=== PATIENT | female | born 1940 | race Caucasian/White ===

== ENCOUNTER 2023-12-14 12:22 | Inpatient (IN) | payer MEDICARE, MEDICAID, SELFPAY ==
--- NOTE | ~2023-12-14 | CT_ITS ---
EXAMINATION: CT HEAD WITHOUT CONTRAST CLINICAL INFORMATION: Seizures COMPARISON: None. TECHNIQUE: Contiguous axial imaging was performed from the skull base to vertex without intravenous administration of contrast. Coronal and sagittal reformatted images are performed at the CT scanner. [This CT examination was performed using dose optimization techniques as appropriate, variously including the following: *Automated exposure control *Adjustment of mA and/or kV according to patient size (this includes techniques or standardized protocols for targeted exams where dose is matched to indication/reason for exam; i.e. extremities or head) *Use of iterative reconstruction technique] DLP: 1172 mGy-cm. FINDINGS: There is no evidence of acute intracranial hemorrhage or territorial infarction. No abnormal mass-effect or midline shift is seen. Godfrey to white matter differentiation is well preserved. No extra-axial fluid collections are identified. There is generalized global volume loss. There is moderate prominence of the ventricles and the sulci . There is mild hypodensity of the periventricular white matter due to chronic small vessel ischemic disease. There are vascular calcifications of the internal carotid arteries bilaterally. There is no osseous abnormality. The mastoid air cells and visualized portions of the paranasal sinuses are well-aerated. CT/CT head/brain wo IV con IMPRESSION: No acute intracranial pathology.
[2023-12-14 12:33] VITALS: BP 186/103; PULSE 112; O2SAT 87; BMI 26.2
[2023-12-14 12:41] VITALS: BP 162/80; PULSE 108; RESP 18; TEMP 36.2; O2SAT 93
--- NOTE | 2023-12-14 12:45 | PC.NURSE ---
pt alert and oriented to self only. pt was biba from [facility] d/t a possible 3 min long tonic clonic seizure. witnessed by facility. no headstrike/trauma noted. pt is not on blood thinners. no hx of previous seizure activity. non med compliant x 1 week. pt seemingly confused/disoriented/unable to answer questions appropriately. seizure pads in place for precaution. pt's son is bedside for support. no sob/wob noted. respirations even and unlabored. call barroso placed within reach.
--- NOTE | 2023-12-14 13:09 | ECG_ITS ---
Test Reason : SEIZURES Blood Pressure : / mmHG Vent. Rate : 092 BPM Atrial Rate : 092 BPM P-R Int : 148 ms QRS Dur : 122 ms QT Int : 412 ms P-R-T Axes : 061 -48 117 degrees QTc Int : 509 ms Normal sinus rhythm Possible Left atrial enlargement Left axis deviation Left bundle branch block Abnormal ECG No previous ECGs available Referred By: Lety Gomez Electronically Signed By:KARL VIEYRA MD
--- NOTE | 2023-12-14 13:10 | ED.SEIZURE ---
HPI - Seizure General Chief Complaint: Seizure Stated Complaint: TREV,FROM [place] ON SEC 21 PER EMS Time Seen by Provider: 12/14/23 12:58 Source: family and EMS Mode of arrival: EMS Limitations: other History of Present Illness HPI Narrative: Patient comes to the emergency room via ambulance from [facility]. Patient has at this time decompensated bipolar disorder and is unable to provide any significant history. Patient's son is at bedside. The son explains that earlier today, they were visiting the patient at [facility]. Welt he was feeling of some papers for his mother, a code assist was called in the facility, seems that patient had a tonic-clonic seizure that lasted 3 minutes. Patient's son did not witness it. When they went to see the patient, patient was awake, still confused as she has been for several days. Per staff, they informed EMS that the patient was in bed, she did not fall or hit her head. Patient is not on blood thinners. According to the patient's son, about a week ago before the patient was hospitalized in the psychiatric facility, a thorough medical workup was done at [facility] including head CT and everything was normal. The patient's son states that he has not sure if the patient has history of prior seizures. However, he is aware that the patient has not been taking any of her medications to her current psychiatric condition Related Data Home Medications ?Medication ?Instructions ?Recorded ?Confirmed fluphenazine decanoate 25 mg/mL 25 mg IM QMONTH 12/14/23 12/22/23 injection solution sennosides 8.6 mg tablet (senna) 17.2 mg PO BEDTIME PRN Constipation 12/14/23 12/22/23 vitamin E 268 mg (400 unit) capsule 268 mg PO DAILY 12/14/23 12/22/23 Previous Rx's ?Medication ?Instructions ?Recorded amlodipine 10 mg tablet 10 mg PO DAILY #30 tabs 01/04/24 atorvastatin 20 mg tablet 20 mg PO BEDTIME #30 tabs 01/04/24 diphenhydramine-zinc acetate 1 1 appl topical BID PRN itching 01/04/24 %-0.1 % topical cream #28.3 grams divalproex 250 mg tablet,delayed 750 mg (3 x 250 mg) PO BID #180 01/04/24 release tabs duloxetine 60 mg capsule,delayed 60 mg PO DAILY #30 caps 01/04/24 release metoprolol tartrate 50 mg tablet 50 mg PO BID #60 tabs 01/04/24 multivitamin (Daily-Chuckie tablet) 1 tab PO DAILY #30 tabs 01/04/24 trazodone 50 mg tablet 50 mg PO BEDTIME PRN Insomnia #30 01/04/24 tabs Allergies Allergy/AdvReac Type Severity Reaction Status Date / Time No Known Allergies Allergy Verified 12/14/23 12:31 Review of Systems Review of Systems: Yes Unobtainable due to mental condition [facility] Past Medical History Medical History HLD (hyperlipidemia) H/O: HTN (hypertension) Bipolar disorder Social History Social History Household Members: Spouse Housing: House Housing Other:: [facility] Do you presently have visiting nurse or other home services: No Unable to assess alcohol history related to: Unknown Comment: 1:1 Patient Tobacco Use Status: Never used Tobacco service: No Sexual orientation: Straight/Heterosexual Physical Exam Vital Signs: Vital Signs: Last Vital Signs Temp 97.2 F 12/22/23 08:00 Pulse 66 12/22/23 08:00 Resp 16 12/22/23 08:00 BP 149/66 H 12/22/23 08:00 Pulse Ox 95 12/22/23 08:00 O2 Del Method Room Air 12/22/23 08:00 O2 Flow Rate 9 12/14/23 20:50 BMI result Body Mass Index 26.3 Const: Other: Appearance: Alert. no acute distress. Eyes: Pupils equal, round and reactive to light. ENT: Pharynx normal. Dried oral mucosa Neck: Normal inspection. Neck supple. No lymph nodes noted. No crepitus CVS: Normal heart rate and rhythm. Pulses normal. Normal S1 and S2 Respiratory: No respiratory distress. Breath sounds normal. No Wheezing. No rales Abdomen: Soft and nontender. No rigidity. No distention. Skin: Skin warm and dry. Normal skin color. Normal skin turgor. Extremities: No lower extremity edema. No Lacerations. No Rash Neuro: No motor deficit. No sensory deficit. Moving all extremities. No slurred speech. CN 2 through 12 grossly intact Psych: calm, cooperative, mumbling, not making sense, per patient this has been going on for about a week Course Course Course Narrative: -patient has no history of seizures. Seems that after the seizure episode, patient was not postictal, was at her bipolar decompensated baseline -unclear if patient has history of seizures. -all of patient's labs pending Medications Administered Discontinued Medications Generic Name Dose Route Start Last Admin Trade Name Freq PRN Reason Stop Dose Admin Amlodipine Besylate 5 mg 12/15/23 09:00 12/16/23 10:34 Amlodipine Besylate 5 Mg Tablet PO Not Given DAILY WILDER Protocol Amlodipine Besylate 10 mg 12/17/23 09:00 12/22/23 09:39 Amlodipine Besylate 10 Mg Tablet PO 10 mg DAILY WILDER Administration Protocol Aripiprazole 5 mg 12/15/23 09:00 12/22/23 09:39 Aripiprazole 5 Mg Tablet PO 5 mg DAILY WILDER Administration Atorvastatin Calcium 20 mg 12/14/23 21:00 12/21/23 20:02 Atorvastatin Calcium 20 Mg Tablet PO 20 mg BEDTIME WILDER Administration Benztropine Mesylate 0.5 mg 12/15/23 09:00 12/22/23 09:39 Benztropine Mesylate 0.5 Mg Tablet PO 0.5 mg DAILY WILDER Administration Carbamazepine 200 mg 12/14/23 21:00 12/18/23 09:44 Carbamazepine 100 Mg Tab.Chew PO 200 mg BID WILDER Administration Dextrose 25 gm 12/15/23 01:49 12/18/23 03:07 Dextrose 50 % 25 Gm/50 Ml Syringe IVPUSH 25 gm Q15M PRN Administration per Hypoglycemia Standing Ord. Protocol Diazepam 5 mg 12/15/23 15:14 12/15/23 15:23 Diazepam 10 Mg/2 Ml Cartridge IM 12/15/23 15:15 5 mg STAT STA Administration Diazepam 5 mg 12/16/23 00:37 12/16/23 00:48 Diazepam 10 Mg/2 Ml Cartridge IM 12/16/23 00:38 5 mg STAT STA Administration Diazepam 2.5 mg 12/16/23 18:01 12/17/23 05:21 Diazepam 10 Mg/2 Ml Cartridge IVPUSH 2.5 mg Q12H PRN Administration anxiety/restlessness Duloxetine HCl 30 mg 12/15/23 09:00 12/18/23 09:44 Duloxetine Hcl 30 Mg Capsule.Dr PO 30 mg DAILY WILDER Administration Duloxetine HCl 60 mg 12/15/23 09:00 12/22/23 09:39 Duloxetine Hcl 60 Mg Capsule.Dr PO 60 mg DAILY WILDER Administration Enoxaparin Sodium 40 mg 12/14/23 21:00 12/21/23 22:47 Enoxaparin Sodium 40 Mg/0.4 Ml Syringe SUBCUT Not Given Q24H WILDER Fluphenazine Decanoate 25 mg 12/21/23 08:00 12/21/23 14:26 Fluphenazine Decanoate 25 Mg/Ml 5 Ml Vial IM 25 mg Q28D WILDER Administration Hydralazine HCl 10 mg 12/15/23 01:52 12/15/23 02:11 Hydralazine Hcl 20 Mg/Ml Vial IVPUSH 12/15/23 01:53 10 mg ONCE ONE Administration Protocol Hydralazine HCl 5 mg 12/16/23 17:51 12/17/23 05:20 Hydralazine Hcl 20 Mg/Ml Vial IVPUSH 5 mg Q6H PRN Administration for SBP > 180 Protocol Levetiracetam 1,500 mg in 100 mls @ 400 mls/hr 12/14/23 19:25 12/14/23 20:11 Keppra IV 12/14/23 19:39 Infused ONCE ONE Infusion Sodium Chloride 1,000 mls @ 999 mls/hr 12/14/23 19:25 12/14/23 22:42 Ns IVCONT 12/14/23 20:25 Infused .Q1H1M ONE Infusion Sodium Chloride 1,000 mls @ 100 mls/hr 12/14/23 20:45 12/15/23 10:15 Ns IVCONT Infused .Q10H WILDER Infusion Levetiracetam 500 mg in 100 mls @ 400 mls/hr 12/15/23 08:00 12/16/23 07:46 Keppra IV Infused Q12H WILDER Infusion Dextrose/Sodium Chloride 1,000 mls @ 100 mls/hr 12/15/23 09:00 12/17/23 15:23 D51/2ns IVCONT Infused .Q10H WILDER Infusion Valproic Acid 500 mg/ Dextrose 55 mls @ 55 mls/hr 12/16/23 16:00 12/22/23 04:51 IV Infused Q12H WILDER Infusion Insulin Human Lispro 0 unit 12/15/23 02:00 12/15/23 14:04 Insulin Lispro 100 Unit/Ml 3 Ml Vial SUBCUT Not Given Q6H [facility] Protocol Metoprolol Tartrate 50 mg 12/14/23 21:00 12/22/23 09:39 Metoprolol Tartrate 50 Mg Tablet PO 50 mg BID WILDER Administration Protocol Midazolam HCl 2 mg 12/14/23 19:25 12/14/23 19:32 Midazolam Hcl/Pf 2 Mg/2 Ml Vial IM 12/14/23 19:26 2 mg ONCE ONE Administration Multivitamins/Vitamin C 1 tab 12/15/23 09:00 12/22/23 09:39 Multivitamin Tablet PO 1 tab DAILY WILDER Administration Sodium Chloride 3 ml 12/15/23 00:00 12/22/23 09:39 0.9 % Sodium Chloride Flush 3 Ml Syringe IVFLUSH 3 ml QSHIFT WILDER Administration Vitamin E 180 mg 12/15/23 09:00 12/22/23 09:39 Vitamin E (Dl,Tocopheryl Acet) 180 Mg (400 Unit) Capsule PO 180 mg DAILY WILDER Administration Medical Decision Making Medical Decision Making [facility] Narrative: My interpretation of labs, hematology within normal limits, troponin slightly elevated, patient does not seem to have any chest pain. Troponin will be repeated 17:00 -18:00, I was informed that the patient's nurse that the patient is very combative, tries to hit them, they will try to have the patient calm down with redirection and then attempt drawing blood again. Patient has a difficult stick -at 19:25, I was informed by the patient's took that the patient was having a seizure. As they walked into a room, patient did seem that she was having a focal seizure, consisting of rapid blinking, eye deviation towards the left. Lasted for approximately 20 seconds. Patient was given 2 mg IM Versed. Vitals stable. Patient did seem postictal and a talking after this event. -IV Keppra foods have been ordered. Discussed with the patient's son the patient will be admitted. -I discussed the patient with our hospitalist Dr. Love, patient being admitted Differential Diagnosis Differential Diagnoses: The differential diagnosis associated with the presentation includes (Seizure, pseudo-seizure) Admission/Observation Consideration of admission/observation: Escalation of care including admission/observation considered Consult Healthcare Provider Management of the patient was discussed with: Hospitalist (Discussed the patient with Dr. Love) Lab Data MDM Lab Attestation statement: I reviewed the patient's lab results. 12/19/23 08:11 12/19/23 08:11 Labs: Lab Results 12/14/23 12/14/23 12/14/23 Range/Units 13:59 17:37 19:53 WBC 9.5 (4.8-10.8) X10*3/uL RBC 3.99 L (4.20-5.50) X10*6/uL Hgb 11.4 L (12.0-16.0) g/dl Hct 35.5 L (37.0-47.0) % MCV 89.0 (80.0-98.0) fL MCH 28.6 (27.0-33.0) pg MCHC 32.1 (31.0-35.0) g/dl RDW 13.3 (11.0-16.0) % Plt Count 331 (160-400) X10*3/uL MPV 9.9 (9.4-12.3) fL Immature Gran % (Auto) 0.3 (0.0-0.4) % Neut % (Auto) 79.6 H (45-73) % Lymph % (Auto) 7.8 L (20-40) % [place] % (Auto) 10.2 (2-11) % Eos % (Auto) 1.6 (0-4) % Baso % (Auto) 0.5 (0-2) % Lymph # (Auto) 0.7 L (1.2-4.9) X10*3/uL [place] # (Auto) 1.0 (0.1-1.2) X10*3/uL Eos # (Auto) 0.2 (0.0-0.4) X10*3/uL Baso # (Auto) 0.1 (0.0-0.2) X10*3/uL Abs Immat Gran (auto) 0.03 (0.00-0.03) X10*3/uL Absolute Neuts (auto) 7.6 (2.0-8.3) x10*3/uL Absolute Nucleated RBC 0.000 (0.0-0.012) X10*3/uL Nucleated RBC % (auto) 0.0 (0.0-0.2) /100WBC PT 12.9 (11.1-13.3) SEC INR 1.1 (0.9-1.1) Sodium 145 (135-145) mmol/L Potassium 4.3 (3.3-5.1) mmol/L Chloride 111 H (96-108) mmol/L Carbon Dioxide 21 L (22-29) mmol/L Anion Gap 17 (12-20) BUN 25 H (9-16) mg/dL Creatinine 0.87 (0.5-1.4) mg/dL Estim Creat Clear Calc 41.3 Estimated GFR > 60 POC Glucose (60-115) mg/dL Random Glucose 88 (60-115) mg/dL Estimat Average Glucose mg/dL Hemoglobin A1c % (<6.0) % Lactic Acid 1.4 (0.5-2.0) mmol/L Calcium 9.5 (8.4-10.2) mg/dL Magnesium 2.3 (1.6-2.6) mg/dL Total Bilirubin 0.3 (0.0-1.0) mg/dL Direct Bilirubin 0.2 (0.0-0.5) mg/dL AST 31 (5-31) U/L ALT 20 (0-31) U/L Alkaline Phosphatase 65 (39-117) U/L Troponin I High Sens 28.9 H 32.3 H (<3.5-17.0) ng/L Total Protein 7.4 (6.5-8.0) g/dL Albumin 3.9 (3.5-5.0) g/dL Urine Color Yellow Urine Appearance Clear Urine pH 6.0 (5.0-9.0) Ur Specific [place] 1.025 (1.005-1.025) Urine Protein Trace (Neg-Trace) mg/dL Urine Glucose (UA) Negative (Negative) mg/dL Urine Ketones 15 (Negative) mg/dL Urine Blood Negative (Negative) Urine Nitrite Negative (Negative) Ur Leukocyte Esterase Negative (Negative) 12/15/23 12/15/23 12/15/23 Range/Units 01:43 02:57 05:42 WBC 7.8 (4.8-10.8) X10*3/uL RBC 3.51 L (4.20-5.50) X10*6/uL Hgb 10.0 L (12.0-16.0) g/dl Hct 31.5 L (37.0-47.0) % MCV 89.7 (80.0-98.0) fL MCH 28.5 (27.0-33.0) pg MCHC 31.7 (31.0-35.0) g/dl RDW 13.6 (11.0-16.0) % Plt Count 304 (160-400) X10*3/uL MPV 10.5 (9.4-12.3) fL Immature Gran % (Auto) 0.4 (0.0-0.4) % Neut % (Auto) 64.9 (45-73) % Lymph % (Auto) 18.3 L (20-40) % [place] % (Auto) 13.8 H (2-11) % Eos % (Auto) 2.1 (0-4) % Baso % (Auto) 0.5 (0-2) % Lymph # (Auto) 1.4 (1.2-4.9) X10*3/uL [place] # (Auto) 1.1 (0.1-1.2) X10*3/uL Eos # (Auto) 0.2 (0.0-0.4) X10*3/uL Baso # (Auto) 0.0 (0.0-0.2) X10*3/uL Abs Immat Gran (auto) 0.03 (0.00-0.03) X10*3/uL Absolute Neuts (auto) 5.1 (2.0-8.3) x10*3/uL Absolute Nucleated RBC 0.000 (0.0-0.012) X10*3/uL Nucleated RBC % (auto) 0.0 (0.0-0.2) /100WBC PT (11.1-13.3) SEC INR (0.9-1.1) Sodium 145 (135-145) mmol/L Potassium 3.4 D (3.3-5.1) mmol/L Chloride 116 H (96-108) mmol/L Carbon Dioxide 20 L (22-29) mmol/L Anion Gap 12 (12-20) BUN 20 H (9-16) mg/dL Creatinine 0.82 (0.5-1.4) mg/dL Estim Creat Clear Calc 43.9 Estimated GFR > 60 POC Glucose 64 164 H (60-115) mg/dL Random Glucose 62 (60-115) mg/dL Estimat Average Glucose 103 mg/dL Hemoglobin A1c % 5.2 (<6.0) % Lactic Acid (0.5-2.0) mmol/L Calcium 8.3 L D (8.4-10.2) mg/dL Magnesium 2.0 (1.6-2.6) mg/dL Total Bilirubin (0.0-1.0) mg/dL Direct Bilirubin (0.0-0.5) mg/dL AST (5-31) U/L ALT (0-31) U/L Alkaline Phosphatase (39-117) U/L Troponin I High Sens (<3.5-17.0) ng/L Total Protein (6.5-8.0) g/dL Albumin (3.5-5.0) g/dL Urine Color Urine Appearance Urine pH (5.0-9.0) Ur Specific [place] (1.005-1.025) Urine Protein (Neg-Trace) mg/dL Urine Glucose (UA) (Negative) mg/dL Urine Ketones (Negative) mg/dL Urine Blood (Negative) Urine Nitrite (Negative) Ur Leukocyte Esterase (Negative) 12/15/23 12/15/23 Range/Units 07:54 08:23 WBC (4.8-10.8) X10*3/uL RBC (4.20-5.50) X10*6/uL Hgb (12.0-16.0) g/dl Hct (37.0-47.0) % MCV (80.0-98.0) fL MCH (27.0-33.0) pg MCHC (31.0-35.0) g/dl RDW (11.0-16.0) % Plt Count (160-400) X10*3/uL MPV (9.4-12.3) fL Immature Gran % (Auto) (0.0-0.4) % Neut % (Auto) (45-73) % Lymph % (Auto) (20-40) % [place] % (Auto) (2-11) % Eos % (Auto) (0-4) % Baso % (Auto) (0-2) % Lymph # (Auto) (1.2-4.9) X10*3/uL [place] # (Auto) (0.1-1.2) X10*3/uL Eos # (Auto) (0.0-0.4) X10*3/uL Baso # (Auto) (0.0-0.2) X10*3/uL Abs Immat Gran (auto) (0.00-0.03) X10*3/uL Absolute Neuts (auto) (2.0-8.3) x10*3/uL Absolute Nucleated RBC (0.0-0.012) X10*3/uL Nucleated RBC % (auto) (0.0-0.2) /100WBC PT (11.1-13.3) SEC INR (0.9-1.1) Sodium (135-145) mmol/L Potassium (3.3-5.1) mmol/L Chloride (96-108) mmol/L Carbon Dioxide (22-29) mmol/L Anion Gap (12-20) BUN (9-16) mg/dL Creatinine (0.5-1.4) mg/dL Estim Creat Clear Calc Estimated GFR POC Glucose 57 L* 157 H (60-115) mg/dL Random Glucose (60-115) mg/dL Estimat Average Glucose mg/dL Hemoglobin A1c % (<6.0) % Lactic Acid (0.5-2.0) mmol/L Calcium (8.4-10.2) mg/dL Magnesium (1.6-2.6) mg/dL Total Bilirubin (0.0-1.0) mg/dL Direct Bilirubin (0.0-0.5) mg/dL AST (5-31) U/L ALT (0-31) U/L Alkaline Phosphatase (39-117) U/L Troponin I High Sens (<3.5-17.0) ng/L Total Protein (6.5-8.0) g/dL Albumin (3.5-5.0) g/dL Urine Color Urine Appearance Urine pH (5.0-9.0) Ur Specific [place] (1.005-1.025) Urine Protein (Neg-Trace) mg/dL Urine Glucose (UA) (Negative) mg/dL Urine Ketones (Negative) mg/dL Urine Blood (Negative) Urine Nitrite (Negative) Ur Leukocyte Esterase (Negative) Independent Interpretation I performed an independent interpretation of an: CT Scan (My interpretation of head CT: No intracranial bleed) Radiology Impression Discussion of test interpretation with radiology: I have reviewed the radiologist's reading. Radiologist Impression: FINDINGS: There is no evidence of acute intracranial hemorrhage or territorial infarction. No abnormal mass-effect or midline shift is seen. Godfrey to white matter differentiation is well preserved. No extra-axial fluid collections are identified. There is generalized global volume loss. There is moderate prominence of the ventricles and the sulci . There is mild hypodensity of the periventricular white matter due to chronic small vessel ischemic disease. There are vascular calcifications of the internal carotid arteries bilaterally. There is no osseous abnormality. The mastoid air cells and visualized portions of the paranasal sinuses are well-aerated. CT/CT head/brain wo IV con IMPRESSION: No acute intracranial pathology. Independent Historian Clinical information obtained from an independent historian. History obtained from or confirmed by: Other (Son) Critical Care Time Critical Care Time Critical Care Time: Yes Total Critical Care Time: 75 Attestation: I have personally provided critical care time. Time includes review of lab data, radiology results, discussion with consultants, and monitoring for potential decompensation. Intervention performed as documented. Discharge Plan Discharge Clinical Impression: Generalized tonic-clonic seizure Patient Disposition: Admitted As Inpatient Interventions: Admission Worksheet (ED) Last Done: 12/15/23 00:19 Discharge Date/Time: 12/15/23 01:42
--- NOTE | 2023-12-14 14:05 | PC.NURSE ---
labs obtained/sent to lab.
[2023-12-14 14:06] LABS: MANUAL DIFF FLAG NO
[2023-12-14 14:08] LABS: Basophils Absolute Auto 0.1 X10*3/uL (0.0-0.2); Basophils Percent Auto 0.5 % (0-2); Eosinophils Absolute Auto 0.2 X10*3/uL (0.0-0.4); Eosinophils Percent Auto 1.6 % (0-4); Hematocrit 35.5 % (37.0-47.0); Hemoglobin 11.4 g/dl (12.0-16.0); Imm Gran Abs Auto 0.03 X10*3/uL (0.00-0.03); Imm Gran Pct Auto 0.3 % (0.0-0.4); Lymphocytes Absolute Auto 0.7 X10*3/uL (1.2-4.9); Lymphocytes Percent Auto 7.8 % (20-40); Mean Corpuscular HGB Conc 32.1 g/dl (31.0-35.0); Mean Corpuscular Hemoglobin 28.6 pg (27.0-33.0); Mean Platelet Volume 9.9 fL (9.4-12.3); Monocytes Percent Auto 10.2 % (2-11); Neutrophils Absolute Auto 7.6 x10*3/uL (2.0-8.3); Neutrophils Percent Auto 79.6 % (45-73); Platelet Count 331 X10*3/uL (160-400); Red Blood Count 3.99 X10*6/uL (4.20-5.50); Red Cell Distribution Width 13.3 % (11.0-16.0); White Blood Count 9.5 X10*3/uL (4.8-10.8)
[2023-12-14 14:12] LABS: INTERNATIONAL NORM RATIO 1.1 (0.9-1.1); Prothrombin Time 12.9 SEC (11.1-13.3)
[2023-12-14 14:17] LABS: Lactic Acid 1.4 mmol/L (0.5-2.0)
[2023-12-14 14:22] LABS: Alanine Aminotransferase 20 U/L (0-31); Albumin Level 3.9 g/dL (3.5-5.0); Alkaline Phosphatase 65 U/L (39-117); Anion Gap 17 (12-20); Aspartate Amino Transferase 31 U/L (5-31); Bilirubin Direct 0.2 mg/dL (0.0-0.5); Bilirubin Total 0.3 mg/dL (0.0-1.0); Blood Urea Nitrogen 25 mg/dL (9-16); Calcium 9.5 mg/dL (8.4-10.2); Carbon Dioxide 21 mmol/L (22-29); Chloride 111 mmol/L (96-108); Creatinine Clr Calc Pharmacy 41.3; Estimated Glomerular Filt Rate > 60; Glucose Random 88 mg/dL (60-115); Potassium 4.3 mmol/L (3.3-5.1); Sodium 145 mmol/L (135-145); Total Protein 7.4 g/dL (6.5-8.0)
[2023-12-14 14:29] LABS: Troponin-I High Sensitivity 28.9 ng/L (<3.5-17.0)
--- NOTE | 2023-12-14 15:10 | PC.NURSE ---
pt to CT at this time.
--- NOTE | 2023-12-14 16:29 | PHA.MEDREC ---
Pharmacy Consult ? Medication Reconciliation Pharmacy has completed the medication reconciliation. Patient came from [facility] with med list. Chika Lima, SusanaD
[2023-12-14 17:07] VITALS: BP 158/72; PULSE 95; RESP 16; TEMP 37.2; O2SAT 99
[2023-12-14 17:09] VITALS: O2SAT 66
--- NOTE | 2023-12-14 17:09 | PC.NURSE ---
pt was resting comfortably asleep in no apparent distress. pt desatted to 66% on RA w/ accurate pleth. lithopone charger's bedside to assess. pt woke up and O2 increased to 99% on RA. no sob/wob noted. respirations even and unlabored. documented in vitals section.
--- NOTE | 2023-12-14 17:41 | PC.NURSE ---
straight catheterization performed. 3:1 assist needed to complete task d/t pt being combative. urine obtained/sent to lab.
[2023-12-14 17:49] LABS: Appearance Urine Clear; Color Urine Yellow; Glucose Urine UA Negative (Negative); Leukocyte Esterase Urine Negative (Negative); Nitrite Urine Negative (Negative); Specific Gravity - Urine 1.025 (1.005-1.025); Urine Blood Negative (Negative); Urine Ketones 15 mg/dL (Negative); Urine Protein Trace mg/dL (Neg-Trace)
--- NOTE | 2023-12-14 19:25 | PC.NURSE ---
Pt noted to have a seizure. MD and pts son at bedside. Verbal ordered for 2mg of Versed given to pt IM. Pt placed on 15L via NR for O2 support. Sat @ 99%. Sinus tach on monitor. 20G IV line established on R hand. Pt tolerated well. NS and Keppra administered as ordered. Pt currently sleeping at the bedside. No apparent distress noted. O2 sat 100% on 8L via NR. Breaths are even regular and unlabored.
[2023-12-14 19:26] VITALS: BP 192/64; PULSE 100; RESP 22; O2SAT 99
[2023-12-14] MEDS: Midazolam HCl/PF 2 MG/2 ML VIAL IM (19:32)
[2023-12-14] MEDS: 0.9 % Sodium Chloride 1,000 ML 999 ML IVCONT (19:45)
[2023-12-14] MEDS: levETIRAcetam in NaCl (iso-os) 1,500 MG/100 ML PIGGYBACK 400 MG IV (19:56)
[2023-12-14 20:18] LABS: Troponin-I High Sensitivity 32.3 ng/L (<3.5-17.0)
[2023-12-14 20:50] VITALS: BP 165/73; PULSE 90; RESP 20; O2SAT 100
--- NOTE | 2023-12-14 20:53 | PM.IMHP ---
History of Present Illness Date of Service: 12/14/23 Attending physician on admission: Destiney Love Chief Complaint: ams, seizure 83-year-old female with history of bipolar disorder, hypertension, hyperlipidemia presented to the ED from [facility] following a witnessed ?tonic-clonic seizure? lasting about 3 minutes. Patient is unable to provide history secondary to decompensated bipolar disorder as well as postictal state as she did have a 2nd witnessed focal seizure while in the ED with left eye gaze deviation, rapid blinking, and stiff legs bilaterally. Discussed with patient's son who denies any history of seizure activity. He tells me that the patient has been noncompliant with her psychiatric medications for an unspecified period of time with subsequent decompensation of her bipolar disorder which has happened in the past. She was recently hospitalized at [facility] with discharge to [facility] for further management. He states that historically she will stop taking her medications thinking that her condition has improved and will subsequently decompensate. She has followed at the [facility] outpt for 20+ years. On arrival, pt tachycardic to 108, vitals otherwise stable. During witnessed focal seizure, patient desaturated to 66% on room air and was placed on non-rebreather now maintaining oximetry 100%. She was hypertensive to 165/73 on admission. No leukocytosis. There is a mild normocytic anemia with H/H 11.4/35.5%. Renal function consistent with baseline, electrolyte levels normal. Lactic acid 1.4. Glucose within normal limits. EKG shows NSR, rate 92 with (known) LBBB, QTc 509. Head CT negative for any acute intracranial abnormality. In the ED, given 2 mg IV Versed during witnessed focal seizure as above and loaded with 1500 mg IV Keppra. Review of Systems Review of Systems: Yes Unobtainable due to mental status [facility] Medical History (Updated 12/14/23 @ 21:07 by CARMELINA Davis) HLD (hyperlipidemia) H/O: HTN (hypertension) Bipolar disorder Social History Patient Tobacco Use Status: Never used Tobacco Smoked in Last 30 Days: No Use of substances other than those prescribed or required for medical reasons: No Advance Directives: Yes Advance Directives Information Provided: No Advance Directives on File: No Nutrition Risks: No Nutritional Risk Meds Allergies Allergy/AdvReac Type Severity Reaction Status Date / Time No Known Allergies Allergy Verified 12/14/23 12:31 Active Medications: Current Medications Acetaminophen (Acetaminophen 325 Mg Tablet) 650 mg PO Q6H PRN PRN Reason: Pain, Mild (Pain Scale 1-3) Amlodipine Besylate (Amlodipine Besylate 5 Mg Tablet) 5 mg PO DAILY [facility]; Protocol Aripiprazole (Aripiprazole 5 Mg Tablet) 5 mg PO DAILY [facility] Atorvastatin Calcium (Atorvastatin Calcium 20 Mg Tablet) 20 mg PO BEDTIME [facility] Benztropine Mesylate (Benztropine Mesylate 0.5 Mg Tablet) 0.5 mg PO DAILY [facility] Carbamazepine (Carbamazepine 100 Mg Tab.Chew) 200 mg PO BID [facility] Duloxetine HCl (Duloxetine Hcl 30 Mg Capsule.Dr) 30 mg PO DAILY [facility] Duloxetine HCl (Duloxetine Hcl 60 Mg Capsule.Dr) 60 mg PO DAILY [facility] Enoxaparin Sodium (Enoxaparin Sodium 40 Mg/0.4 Ml Syringe) 40 mg SUBCUT Q24H [facility] Sodium Chloride (Ns) 1,000 mls @ 100 mls/hr IVCONT .Q10H [facility] Levetiracetam (Keppra) 500 mg in 100 mls @ 400 mls/hr IV Q12H [facility] Metoprolol Tartrate (Metoprolol Tartrate 50 Mg Tablet) 50 mg PO BID [facility]; Protocol Multivitamins/Vitamin C (Multivitamin Tablet) 1 tab PO DAILY [facility] Non-Formulary Medication (Vitamin E) 268 mg PO DAILY [facility] Ondansetron HCl (Ondansetron Hcl 4 Mg/2 Ml Vial) 4 mg IVPUSH Q8H PRN PRN Reason: Nausea and Vomiting Senna (Sennosides 8.6 Mg Tablet) 17.2 mg PO BEDTIME PRN PRN Reason: Constipation Sodium Chloride (0.9 % Sodium Chloride Flush 3 Ml Syringe) 3 ml IVFLUSH QSHIFT [facility] Trazodone HCl (Trazodone Hcl 50 Mg Tablet) 50 mg PO BEDTIME PRN PRN Reason: Insomnia Home Medications Medication Instructions Recorded Confirmed Last Taken Type amlodipine 5 mg tablet 5 mg PO DAILY 12/14/23 12/14/23 Unknown History aripiprazole 5 mg tablet 5 mg PO DAILY 12/14/23 12/14/23 Unknown History atorvastatin 20 mg tablet 20 mg PO BEDTIME 12/14/23 12/14/23 Unknown History benztropine 0.5 mg tablet 0.5 mg PO DAILY 12/14/23 12/14/23 Unknown History carbamazepine 100 mg chewable 200 mg PO BID 12/14/23 12/14/23 Unknown History tablet clindamycin HCl 150 mg capsule 300 mg PO QID 12/14/23 12/14/23 Unknown History duloxetine 30 mg capsule,delayed 30 mg PO DAILY 12/14/23 12/14/23 Unknown History release duloxetine 60 mg capsule,delayed 60 mg PO DAILY 12/14/23 12/14/23 Unknown History release fluphenazine decanoate 25 mg/mL 25 mg IM QMONTH 12/14/23 12/14/23 Unknown History injection solution metoprolol tartrate 25 mg tablet 50 mg PO BID 12/14/23 12/14/23 Unknown History multivitamin 1 tab PO DAILY 12/14/23 12/14/23 Unknown History sennosides 8.6 mg tablet (senna) 8.6 mg PO BEDTIME PRN Constipation 12/14/23 12/14/23 Unknown History trazodone 50 mg tablet 50 mg PO BEDTIME PRN Insomnia 12/14/23 12/14/23 Unknown History vitamin E 268 mg (400 unit) capsule 268 mg PO DAILY 12/14/23 12/14/23 Unknown History Physical Exam Vital Signs and Narrative: Vital Signs: Last Vital Signs Temp 98.9 F 12/14/23 17:07 Pulse 90 12/14/23 20:50 Resp 20 12/14/23 20:50 BP 165/73 H 12/14/23 20:50 Pulse Ox 100 12/14/23 20:50 O2 Del Method Non-Rebreather Ma sk 12/14/23 20:50 O2 Flow Rate 9 12/14/23 20:50 BMI result Body Mass Index 26.2 Constitutional - somnolent, but opens eyes with tactile stimulus, No apparent distress Eyes - PERRLA, EOMI Cardiovascular - S1S2, RRR, No edema Respiratory - Normal lung expansion, Normal respiratory effort, No respiratory distress on non-rebreeather, CTA bilaterally Gastrointestinal - NT / ND; +BS; No rebound or guarding Extremities - no calf tenderness bilaterally, no swelling Skin - Warm/Dry Neurological - somnolent, but opens eyes with tactile stimulus, quickly falls back asleep, nonverbal. appropriate tone ble and bue, unable to eval further neuro exam 2/2 mental status however no focal neuro deficits on arrival per ed provider Results Labs 12/14/23 13:59 12/14/23 13:59 Labs: Laboratory Results - last 24 hr 12/14/23 12/14/23 13:59 17:37 MCV 89.0 MCH 28.6 MCHC 32.1 RDW 13.3 Plt Count 331 MPV 9.9 Immature Gran % (Auto) 0.3 Neut % (Auto) 79.6 H Lymph % (Auto) 7.8 L [place] % (Auto) 10.2 Eos % (Auto) 1.6 Baso % (Auto) 0.5 Lymph # (Auto) 0.7 L [place] # (Auto) 1.0 Eos # (Auto) 0.2 Baso # (Auto) 0.1 Abs Immat Gran (auto) 0.03 Absolute Neuts (auto) 7.6 Absolute Nucleated RBC 0.000 Nucleated RBC % (auto) 0.0 PT 12.9 INR 1.1 Anion Gap 17 Estim Creat Clear Calc 41.3 Estimated GFR > 60 Random Glucose 88 Lactic Acid 1.4 Calcium 9.5 Total Bilirubin 0.3 Direct Bilirubin 0.2 AST 31 ALT 20 Alkaline Phosphatase 65 Total Protein 7.4 Albumin 3.9 Urine Color Yellow Urine Appearance Clear Urine pH 6.0 Ur Specific [place] 1.025 Urine Protein Trace Urine Glucose (UA) Negative Urine Ketones 15 Urine Blood Negative Urine Nitrite Negative Ur Leukocyte Esterase Negative Imaging Radiologist's Impressions: Impressions Head CT 12/14/23 15:50 IMPRESSION: No acute intracranial pathology. Assessment and Plan (1) Generalized tonic-clonic seizure: Status: Acute Plan 83-year-old female with history of bipolar disorder, hypertension, hyperlipidemia to be observed for new onset seizure disorder # new onset seizure activity with postictal state and acute hypoxemic respiratory failure -wean supplemental O2 as tolerated -head CT negative for any acute intracranial abnormality -EKG with prolonged QTC, check magnesium level. Keep magnesium level >2.0 and potassium >4.0 -MRI brain ordered -continue Keppra 500 mg b.i.d. -seizure precautions -aspiration precautions -EEG ordered -neurology consult -monitor on telemetry # prolonged QTC -likely secondary to antipsychotic use -monitor magnesium and potassium levels as above, replete as above -monitor on telemetry -avoid use of further QTC prolonging agents # decompensated bipolar disorder -noncompliant with psychiatric medications -psychiatry consult # hypertension -BP reasonably controlled on admission -noncompliant with antihypertensives at home secondary to decompensated bipolar disorder -resume antihypertensives # HLD -statin # chronic normocytic anemia -h/h above transfusion threshold DVT prophylaxis-Lovenox Full code- discussed with patient's son and healthcare proxy, Devonte Harris Stroke Does the patient have a stroke diagnosis?: No VTE Prior VTE?: No VTE Risk Level:: Medical - moderate - high VTE Device Contraindication: Treatment Not Indicated VTE Drug Contraindication: N/A - Med Ordered
[2023-12-14 21:22] LABS: Magnesium 2.3 mg/dL (1.6-2.6)
--- NOTE | 2023-12-14 22:00 | PC.NURSE ---
2100 meds help as pt is post-ictal and NPO. Unable to swallow at this time. Provider is aware. Provider reports to be notified if bp >180.
[2023-12-14] MEDS: Enoxaparin Sodium 40 MG/0.4 ML SYRINGE SUBCUT (22:03)
--- NOTE | 2023-12-14 22:50 | PC.NURSE ---
Rosario from [place] called for an update. Update provide. Rosario reports to call the engraving supervisor once patient is ready to return.
[2023-12-15] VITALS (7 sets, daily range): BP systolic 108–192; BP diastolic 58–86; PULSE 71–91; RESP 18–20; TEMP 36.5–37.1; O2SAT 92–99; BMI 26.3
[2023-12-15] MEDS: 0.9 % Sodium Chloride 1,000 ML 100 ML IVCONT (00:12)
[2023-12-15] MEDS: 0.9 % Sodium Chloride Flush 3 ML SYRINGE IVFLUSH ×2 (00:12→08:09)
[2023-12-15 01:52] LABS: Glucose, Whole Blood 64 mg/dL (60-115)
[2023-12-15] MEDS: Dextrose 50 % 25 GM/50 ML SYRINGE IVPUSH ×2 (01:55→08:02)
[2023-12-15] MEDS: hydrALAZINE HCl 20 MG/ML VIAL 10 MG IVPUSH (02:11)
[2023-12-15 03:02] LABS: Glucose, Whole Blood 164 mg/dL (60-115)
[2023-12-15 06:14] LABS: MANUAL DIFF FLAG NO
[2023-12-15 06:23] LABS: Basophils Percent Auto 0.5 % (0-2); Eosinophils Absolute Auto 0.2 X10*3/uL (0.0-0.4); Eosinophils Percent Auto 2.1 % (0-4); Hematocrit 31.5 % (37.0-47.0); Imm Gran Abs Auto 0.03 X10*3/uL (0.00-0.03); Imm Gran Pct Auto 0.4 % (0.0-0.4); Lymphocytes Absolute Auto 1.4 X10*3/uL (1.2-4.9); Lymphocytes Percent Auto 18.3 % (20-40); Mean Corpuscular HGB Conc 31.7 g/dl (31.0-35.0); Mean Corpuscular Hemoglobin 28.5 pg (27.0-33.0); Mean Corpuscular Volume 89.7 fL (80.0-98.0); Mean Platelet Volume 10.5 fL (9.4-12.3); Monocytes Absolute Auto 1.1 X10*3/uL (0.1-1.2); Monocytes Percent Auto 13.8 % (2-11); Neutrophils Absolute Auto 5.1 x10*3/uL (2.0-8.3); Neutrophils Percent Auto 64.9 % (45-73); Platelet Count 304 X10*3/uL (160-400); Red Blood Count 3.51 X10*6/uL (4.20-5.50); Red Cell Distribution Width 13.6 % (11.0-16.0); White Blood Count 7.8 X10*3/uL (4.8-10.8)
[2023-12-15 06:42] LABS: Anion Gap 12 (12-20); Blood Urea Nitrogen 20 mg/dL (9-16); Calcium 8.3 mg/dL (8.4-10.2); Carbon Dioxide 20 mmol/L (22-29); Chloride 116 mmol/L (96-108); Creatinine Clr Calc Pharmacy 43.9; Estimated Glomerular Filt Rate > 60; Glucose Random 62 mg/dL (60-115); Potassium 3.4 mmol/L (3.3-5.1); Sodium 145 mmol/L (135-145)
[2023-12-15 07:57] LABS: Glucose, Whole Blood 57 mg/dL (60-115)
[2023-12-15] MEDS: levETIRAcetam in NaCl (iso-os) 500 MG/100 ML PIGGYBACK 400 MG IV ×2 (08:08→19:49)
[2023-12-15 08:26] LABS: Glucose, Whole Blood 157 mg/dL (60-115)
[2023-12-15] MEDS: Dextrose 5 % and 0.45 % NaCl 1,000 ML 100 ML IVCONT ×2 (09:50→19:52)
--- NOTE | 2023-12-15 12:15 | MHC.CM.PN ---
Addendum entered by Mare Varela 12/15/23 14:21: This CM called and spoke with [facility], they state the pt does not have a bed to go back to there. That since she was admitted here, she would be a new admission if she were to return there. Original Note: IMM 12/15. Pt lives at home with her , is self-care at baseline. Pt was recently at [facility] since 11/30, then went to [facility] on 12/09. Pts son Devonte Bob Jr. is the HCP, copy on file. MOLST also on file. DCP TBD pending neuro evaluation, and psych consult. Transport via family is D/C home, BLS if going to another facility. Of note, pts son and state she does not do well with male caregivers. PCP: Dr. Susana Simmons
[2023-12-15 13:15] LABS: Glucose, Whole Blood 89 mg/dL (60-115)
--- NOTE | 2023-12-15 14:01 | P.CNPS_ITS ---
History of Present Illness Date of Service: 12/16/2023 Chief Complaint: new onset seizures Discussed with referring provider: Yes Sources of Information: patient interviewed, chart reviewed and crisis/core team assessment reviewed Additional Sources of Information: Son Devonte, also [facility]- [phone] [facility] Narrative: Mrs. Bob is a 83 year-old woman with hx of Bipolar Disorder who initially was brought to [facility] on 12/01/23 due to presenting with paranoia ideas, not talking, refusing medications. She was then sent to [facility] for inpatient psychiatric treatment. This account underwriter spoke with SW from [facility] who reports pt had been refusing medication and team had filed for involuntary commitment. She was transported on 12/15/23 for suspicion of tonic-clonic seizure. Additional collateral information gathered from his son- Devonte who reports pt has hx of Bipolar for more than 20 years. She has been receiving outpatient psychiatric services at [facility] for about 20 years. Son reports she has had about 4 inpt psych admission with similar presentation including mutism, laughing for unclear reasons, paranoia thinking meds are poisoned and she is being watched, declining to take medications, more disorganized behaviors. He reports when she is doing well she functions without an issue. In terms of medication regimen--> she has been on NOLEN fluphenazine 25mg IM monthly, last dose was 11/25/2023 which was given at [facility]. She has NOT missed a dose of fluphenazine. She is also on aripiprazole 5mg po BID. Apparently, carbamazepine was discontinued by provider (pending collateral information by outpatient provider Misha Coles) back in 06/2023. Pt seen in bed. She presents in no acute distress. She makes hand gestures when asked questions, later states she can't talk. She then rambles but is hard to follow what she is trying to say. She lifts her hospital gown a few times, then put it back, touches her IV, doesn't pull it but many purposeless behaviors. Past Psychiatric History: Inpt: 4 in the past unclear when last admission was and where OP: [facility] Past med trials: fluphenazine, abilify, carbamazepine, cymbalta Medical Evaluation Reviewed: Yes [facility] Medical History (Updated 12/16/23 @ 10:14 by Radha Walsh) HLD (hyperlipidemia) H/O: HTN (hypertension) Bipolar disorder Diagnostics Vital Signs (24Hr): Vital Signs - 24 hr 12/14/23 17:07 12/14/23 17:09 12/14/23 19:26 Temperature 98.9 F Pulse Rate 95 100 Respiratory Rate 16 22 H Blood Pressure 158/72 H 192/64 H Pulse Oximetry 99 66 L 99 Oxygen Delivery Method Room Air Room Air Aerosol Mask Oxygen Flow Rate 12/14/23 20:50 12/15/23 00:00 12/15/23 02:55 Temperature 97.7 F 98.2 F Pulse Rate 90 71 77 Respiratory Rate 20 18 20 Blood Pressure 165/73 H 192/86 H 139/65 Pulse Oximetry 100 93 95 Oxygen Delivery Method Non-Rebreather Mask Room Air Room Air Oxygen Flow Rate 9 12/15/23 05:54 12/15/23 07:25 Temperature 98.6 F Pulse Rate 91 71 Respiratory Rate 19 Blood Pressure 108/58 L 120/65 Pulse Oximetry 96 Oxygen Delivery Method Room Air Oxygen Flow Rate BMI result Body Mass Index 26.3 Labs 12/15/23 05:42 12/15/23 05:42 Labs: Laboratory Results - last 48 hr 12/14/23 12/14/23 12/14/23 13:59 17:37 19:53 WBC 9.5 RBC 3.99 L Hgb 11.4 L Hct 35.5 L MCV 89.0 MCH 28.6 MCHC 32.1 RDW 13.3 Plt Count 331 MPV 9.9 Immature Gran % (Auto) 0.3 Neut % (Auto) 79.6 H Lymph % (Auto) 7.8 L [place] % (Auto) 10.2 Eos % (Auto) 1.6 Baso % (Auto) 0.5 Lymph # (Auto) 0.7 L [place] # (Auto) 1.0 Eos # (Auto) 0.2 Baso # (Auto) 0.1 Abs Immat Gran (auto) 0.03 Absolute Neuts (auto) 7.6 Absolute Nucleated RBC 0.000 Nucleated RBC % (auto) 0.0 PT 12.9 INR 1.1 Sodium 145 Potassium 4.3 Chloride 111 H Carbon Dioxide 21 L Anion Gap 17 BUN 25 H Creatinine 0.87 Estim Creat Clear Calc 41.3 Estimated GFR > 60 POC Glucose Random Glucose 88 Lactic Acid 1.4 Calcium 9.5 Magnesium 2.3 Total Bilirubin 0.3 Direct Bilirubin 0.2 AST 31 ALT 20 Alkaline Phosphatase 65 Troponin I High Sens 28.9 H 32.3 H Total Protein 7.4 Albumin 3.9 Urine Color Yellow Urine Appearance Clear Urine pH 6.0 Ur Specific [place] 1.025 Urine Protein Trace Urine Glucose (UA) Negative Urine Ketones 15 Urine Blood Negative Urine Nitrite Negative Ur Leukocyte Esterase Negative 12/15/23 12/15/23 12/15/23 01:43 02:57 05:42 WBC 7.8 RBC 3.51 L Hgb 10.0 L Hct 31.5 L MCV 89.7 MCH 28.5 MCHC 31.7 RDW 13.6 Plt Count 304 MPV 10.5 Immature Gran % (Auto) 0.4 Neut % (Auto) 64.9 Lymph % (Auto) 18.3 L [place] % (Auto) 13.8 H Eos % (Auto) 2.1 Baso % (Auto) 0.5 Lymph # (Auto) 1.4 [place] # (Auto) 1.1 Eos # (Auto) 0.2 Baso # (Auto) 0.0 Abs Immat Gran (auto) 0.03 Absolute Neuts (auto) 5.1 Absolute Nucleated RBC 0.000 Nucleated RBC % (auto) 0.0 PT INR Sodium 145 Potassium 3.4 D Chloride 116 H Carbon Dioxide 20 L Anion Gap 12 BUN 20 H Creatinine 0.82 Estim Creat Clear Calc 43.9 Estimated GFR > 60 POC Glucose 64 164 H Random Glucose 62 Lactic Acid Calcium 8.3 L D Magnesium 2.0 Total Bilirubin Direct Bilirubin AST ALT Alkaline Phosphatase Troponin I High Sens Total Protein Albumin Urine Color Urine Appearance Urine pH Ur Specific [place] Urine Protein Urine Glucose (UA) Urine Ketones Urine Blood Urine Nitrite Ur Leukocyte Esterase 12/15/23 12/15/23 12/15/23 07:54 08:23 13:11 WBC RBC Hgb Hct MCV MCH MCHC RDW Plt Count MPV Immature Gran % (Auto) Neut % (Auto) Lymph % (Auto) [place] % (Auto) Eos % (Auto) Baso % (Auto) Lymph # (Auto) [place] # (Auto) Eos # (Auto) Baso # (Auto) Abs Immat Gran (auto) Absolute Neuts (auto) Absolute Nucleated RBC Nucleated RBC % (auto) PT INR Sodium Potassium Chloride Carbon Dioxide Anion Gap BUN Creatinine Estim Creat Clear Calc Estimated GFR POC Glucose 57 L* 157 H 89 Random Glucose Lactic Acid Calcium Magnesium Total Bilirubin Direct Bilirubin AST ALT Alkaline Phosphatase Troponin I High Sens Total Protein Albumin Urine Color Urine Appearance Urine pH Ur Specific [place] Urine Protein Urine Glucose (UA) Urine Ketones Urine Blood Urine Nitrite Ur Leukocyte Esterase Imaging Radiology Impressions: ITS Impressions Head CT 12/14/23 15:50 IMPRESSION: No acute intracranial pathology. Mental Status Exam Mental Status Exam Narrative: Appearance: wearing hospital gown, poor hygiene, in NAD Behavior: guarded, not talking Speech is mumbles, minimally spontaneous TP: disorganized Affect: constricted AH/VH: appears internally preoccupied, Delusions: paranoid delusions Insight/judgment: impaired x 2 Medications Medications Current Medications Acetaminophen (Acetaminophen 325 Mg Tablet) 650 mg PO Q6H PRN PRN Reason: Pain, Mild (Pain Scale 1-3) Amlodipine Besylate (Amlodipine Besylate 5 Mg Tablet) 5 mg PO DAILY [facility]; Protocol Last Admin: 12/15/23 08:17 Dose: Not Given Aripiprazole (Aripiprazole 5 Mg Tablet) 5 mg PO DAILY [facility] Last Admin: 12/15/23 08:17 Dose: Not Given Atorvastatin Calcium (Atorvastatin Calcium 20 Mg Tablet) 20 mg PO BEDTIME [facility] Last Admin: 12/14/23 22:01 Dose: Not Given Benztropine Mesylate (Benztropine Mesylate 0.5 Mg Tablet) 0.5 mg PO DAILY [facility] Last Admin: 12/15/23 08:17 Dose: Not Given Carbamazepine (Carbamazepine 100 Mg Tab.Chew) 200 mg PO BID [facility] Last Admin: 12/15/23 08:18 Dose: Not Given Dextrose (Dextrose 50 % 25 Gm/50 Ml Syringe) 25 gm IVPUSH Q15M PRN; Protocol PRN Reason: per Hypoglycemia Standing Ord. Last Admin: 12/15/23 08:02 Dose: 25 gm Duloxetine HCl (Duloxetine Hcl 30 Mg Capsule.) 30 mg PO DAILY [facility] Last Admin: 12/15/23 08:18 Dose: Not Given Duloxetine HCl (Duloxetine Hcl 60 Mg Capsule.) 60 mg PO DAILY [facility] Last Admin: 12/15/23 08:18 Dose: Not Given Enoxaparin Sodium (Enoxaparin Sodium 40 Mg/0.4 Ml Syringe) 40 mg SUBCUT Q24H [facility] Last Admin: 12/14/23 22:03 Dose: 40 mg Glucose (Glucose Gel 15 Gm Gel..Gram.) 15 gm PO Q15M PRN; Protocol PRN Reason: per Hypoglycemia Standing Ord. Levetiracetam (Keppra) 500 mg in 100 mls @ 400 mls/hr IV Q12H [facility] Last Infusion: 12/15/23 08:27 Dose: Infused Dextrose/Sodium Chloride (D51/2ns) 1,000 mls @ 100 mls/hr IVCONT .Q10H [facility] Last Admin: 12/15/23 09:50 Dose: 100 mls/hr Insulin Human Lispro (Insulin Lispro 100 Unit/Ml 3 Ml Vial) 0 unit SUBCUT Q6H [facility]; Protocol Last Admin: 12/15/23 07:56 Dose: Not Given Metoprolol Tartrate (Metoprolol Tartrate 50 Mg Tablet) 50 mg PO BID [facility]; Protocol Last Admin: 12/15/23 08:18 Dose: Not Given Multivitamins/Vitamin C (Multivitamin Tablet) 1 tab PO DAILY [facility] Last Admin: 12/15/23 08:19 Dose: Not Given Senna (Sennosides 8.6 Mg Tablet) 17.2 mg PO BEDTIME PRN PRN Reason: Constipation Sodium Chloride (0.9 % Sodium Chloride Flush 3 Ml Syringe) 3 ml IVFLUSH QSHIFT [facility] Last Admin: 12/15/23 08:09 Dose: 3 ml Trazodone HCl (Trazodone Hcl 50 Mg Tablet) 50 mg PO BEDTIME PRN PRN Reason: Insomnia Vitamin E (Vitamin E (Dl,Tocopheryl Acet) 180 Mg (400 Unit) Capsule) 180 mg PO DAILY [facility] Last Admin: 12/15/23 08:19 Dose: Not Given Allergies Allergies Allergy/AdvReac Type Severity Reaction Status Date / Time No Known Allergies Allergy Verified 12/14/23 12:31 Assessment & Plan Assessment & Plan (1) Bipolar disorder with severe esdras: Status: Acute Code(s): F31.13 - Bipolar disorder, current episode manic without psychotic features, severe Plan Mrs. Bob is a 83 year-old woman with hx of Bipolar Disorder who was initially admitted to [facility] for psychiatric care. She had presented as paranoid about medications and being monitored, not talking, declining to take medications. She was transferred for evaluation of what appears to be tonic- clonic seizure (she does not have prior hx of seizures according to family). She continues to present with mutism, paranoia ideas, not accepting treatment. This account underwriter discussed risks, benefits and alternative treatment options with son as pt does not appear to have capacity to make medical decisions at this time. She does have s/s of catatonia with underlying psychosis--> high potency antipsychotic like haldol may make it worse. pending collateral info from OP to gathered medication hx. PLAN 1. At this time, she does not appear to have capacity to make medical decisions- > unable to show understanding of medical condition, appreciation of risk versus benefit of accepting or refusing treatment. Recommend invoking HCP. Capacity may be regain as she clears psychiatrically. 2. WIll decrease cymbalta to only morning dose--> although she is not taking any medication. 3. will obtain collateral information from OP provider 4. In terms of antipsychotic tx--> some degree of catatonic s/s including mutism, negativism, if in need of 2nd antipsychotic may use olanzapine 5mg po q6h prn agitation. Now, monitor Qtc<500ms (she does have LBBB- may need corraction formula to calculate Qtc), Maintain K>4, Mg>2. Total time managing care of this patient today ____ minutes.
--- NOTE | 2023-12-15 14:01 | P.PNIM_ITS ---
Subjective Subjective Date of Service: 12/16/23 Interval History: Pt is very confused, all over the place, refusing meds, care, desorganized, hypoyglycemia this am, corrected Physical Exam 2 Vital Signs: Vital Signs: Last Vital Signs Temp 98.6 F 12/15/23 07:25 Pulse 71 12/15/23 07:25 Resp 19 12/15/23 07:25 BP 120/65 12/15/23 07:25 Pulse Ox 96 12/15/23 07:25 O2 Del Method Room Air 12/15/23 07:25 O2 Flow Rate 9 12/14/23 20:50 BMI result Body Mass Index 26.3 Const: Other: General: Alert, desorganized thought, Resp: CTA bilateral CVS: S1,S2,RRR GI: +BS, NT, no distention Skin: No rash Neuro: motor grossly intact Psych: appropriate affect Objective Data Active Medications Acetaminophen (Acetaminophen 325 Mg Tablet) 650 mg PO Q6H PRN PRN Reason: Pain, Mild (Pain Scale 1-3) Amlodipine Besylate (Amlodipine Besylate 5 Mg Tablet) 5 mg PO DAILY [facility]; Protocol Last Admin: 12/15/23 08:17 Dose: Not Given Documented By: DIA Non-Admin Reason: Patient Refused Aripiprazole (Aripiprazole 5 Mg Tablet) 5 mg PO DAILY [facility] Last Admin: 12/15/23 08:17 Dose: Not Given Documented By: DIA Non-Admin Reason: Patient Refused Atorvastatin Calcium (Atorvastatin Calcium 20 Mg Tablet) 20 mg PO BEDTIME [facility] Last Admin: 12/14/23 22:01 Dose: Not Given Documented By: DOMENICO Non-Admin Reason: Patient Refused Benztropine Mesylate (Benztropine Mesylate 0.5 Mg Tablet) 0.5 mg PO DAILY [facility] Last Admin: 12/15/23 08:17 Dose: Not Given Documented By: DIA Non-Admin Reason: Patient Refused Carbamazepine (Carbamazepine 100 Mg Tab.Chew) 200 mg PO BID [facility] Last Admin: 12/15/23 08:18 Dose: Not Given Documented By: DIA Non-Admin Reason: Patient Refused Dextrose (Dextrose 50 % 25 Gm/50 Ml Syringe) 25 gm IVPUSH Q15M PRN; Protocol PRN Reason: per Hypoglycemia Standing Ord. Last Admin: 12/15/23 08:02 Dose: 25 gm Documented By: DIA Duloxetine HCl (Duloxetine Hcl 30 Mg Capsule.) 30 mg PO DAILY [facility] Last Admin: 12/15/23 08:18 Dose: Not Given Documented By: DIA Non-Admin Reason: Patient Refused Duloxetine HCl (Duloxetine Hcl 60 Mg Capsule.) 60 mg PO DAILY [facility] Last Admin: 12/15/23 08:18 Dose: Not Given Documented By: DIA Non-Admin Reason: Patient Refused Enoxaparin Sodium (Enoxaparin Sodium 40 Mg/0.4 Ml Syringe) 40 mg SUBCUT Q24H [facility] Last Admin: 12/14/23 22:03 Dose: 40 mg Documented By: DOMENICO Glucose (Glucose Gel 15 Gm Gel..Gram.) 15 gm PO Q15M PRN; Protocol PRN Reason: per Hypoglycemia Standing Ord. Levetiracetam (Keppra) 500 mg in 100 mls @ 400 mls/hr IV Q12H [facility] Last Infusion: 12/15/23 08:27 Dose: Infused Documented By: DIA Dextrose/Sodium Chloride (D51/2ns) 1,000 mls @ 100 mls/hr IVCONT .Q10H [facility] Last Admin: 12/15/23 09:50 Dose: 100 mls/hr Documented By: FERMIN Insulin Human Lispro (Insulin Lispro 100 Unit/Ml 3 Ml Vial) 0 unit SUBCUT Q6H [facility]; Protocol Last Admin: 12/15/23 07:56 Dose: Not Given Documented By: DIA Non-Admin Reason: No Insulin Coverage Metoprolol Tartrate (Metoprolol Tartrate 50 Mg Tablet) 50 mg PO BID [facility]; Protocol Last Admin: 12/15/23 08:18 Dose: Not Given Documented By: DIA Non-Admin Reason: Patient Refused Multivitamins/Vitamin C (Multivitamin Tablet) 1 tab PO DAILY [facility] Last Admin: 12/15/23 08:19 Dose: Not Given Documented By: DIA Non-Admin Reason: Patient Refused Senna (Sennosides 8.6 Mg Tablet) 17.2 mg PO BEDTIME PRN PRN Reason: Constipation Sodium Chloride (0.9 % Sodium Chloride Flush 3 Ml Syringe) 3 ml IVFLUSH QSHIFT [facility] Last Admin: 12/15/23 08:09 Dose: 3 ml Documented By: DIA Trazodone HCl (Trazodone Hcl 50 Mg Tablet) 50 mg PO BEDTIME PRN PRN Reason: Insomnia Vitamin E (Vitamin E (Dl,Tocopheryl Acet) 180 Mg (400 Unit) Capsule) 180 mg PO DAILY [facility] Last Admin: 12/15/23 08:19 Dose: Not Given Documented By: DIA Non-Admin Reason: Patient Refused Labs 12/15/23 05:42 12/15/23 05:42 Labs: Laboratory Results - last 24 hr 12/14/23 12/14/23 12/15/23 13:59 17:37 01:43 MCV 89.0 MCH 28.6 MCHC 32.1 RDW 13.3 Plt Count 331 MPV 9.9 Immature Gran % (Auto) 0.3 Neut % (Auto) 79.6 H Lymph % (Auto) 7.8 L [place] % (Auto) 10.2 Eos % (Auto) 1.6 Baso % (Auto) 0.5 Lymph # (Auto) 0.7 L [place] # (Auto) 1.0 Eos # (Auto) 0.2 Baso # (Auto) 0.1 Abs Immat Gran (auto) 0.03 Absolute Neuts (auto) 7.6 Absolute Nucleated RBC 0.000 Nucleated RBC % (auto) 0.0 PT 12.9 INR 1.1 Anion Gap 17 Estim Creat Clear Calc 41.3 Estimated GFR > 60 POC Glucose 64 Random Glucose 88 Lactic Acid 1.4 Calcium 9.5 Magnesium 2.3 Total Bilirubin 0.3 Direct Bilirubin 0.2 AST 31 ALT 20 Alkaline Phosphatase 65 Total Protein 7.4 Albumin 3.9 Urine Color Yellow Urine Appearance Clear Urine pH 6.0 Ur Specific [place] 1.025 Urine Protein Trace Urine Glucose (UA) Negative Urine Ketones 15 Urine Blood Negative Urine Nitrite Negative Ur Leukocyte Esterase Negative 12/15/23 12/15/23 12/15/23 02:57 05:42 07:54 MCV 89.7 MCH 28.5 MCHC 31.7 RDW 13.6 Plt Count 304 MPV 10.5 Immature Gran % (Auto) 0.4 Neut % (Auto) 64.9 Lymph % (Auto) 18.3 L [place] % (Auto) 13.8 H Eos % (Auto) 2.1 Baso % (Auto) 0.5 Lymph # (Auto) 1.4 [place] # (Auto) 1.1 Eos # (Auto) 0.2 Baso # (Auto) 0.0 Abs Immat Gran (auto) 0.03 Absolute Neuts (auto) 5.1 Absolute Nucleated RBC 0.000 Nucleated RBC % (auto) 0.0 PT INR Anion Gap 12 Estim Creat Clear Calc 43.9 Estimated GFR > 60 POC Glucose 164 H 57 L* Random Glucose 62 Lactic Acid Calcium 8.3 L D Magnesium 2.0 Total Bilirubin Direct Bilirubin AST ALT Alkaline Phosphatase Total Protein Albumin Urine Color Urine Appearance Urine pH Ur Specific [place] Urine Protein Urine Glucose (UA) Urine Ketones Urine Blood Urine Nitrite Ur Leukocyte Esterase 12/15/23 12/15/23 08:23 13:11 MCV MCH MCHC RDW Plt Count MPV Immature Gran % (Auto) Neut % (Auto) Lymph % (Auto) [place] % (Auto) Eos % (Auto) Baso % (Auto) Lymph # (Auto) [place] # (Auto) Eos # (Auto) Baso # (Auto) Abs Immat Gran (auto) Absolute Neuts (auto) Absolute Nucleated RBC Nucleated RBC % (auto) PT INR Anion Gap Estim Creat Clear Calc Estimated GFR POC Glucose 157 H 89 Random Glucose Lactic Acid Calcium Magnesium Total Bilirubin Direct Bilirubin AST ALT Alkaline Phosphatase Total Protein Albumin Urine Color Urine Appearance Urine pH Ur Specific [place] Urine Protein Urine Glucose (UA) Urine Ketones Urine Blood Urine Nitrite Ur Leukocyte Esterase Assessment and Plan (1) Bipolar disorder with severe esdras: Status: Acute (2) Generalized tonic-clonic seizure: Status: Acute Plan 83-year-old female with history of bipolar disorder, hypertension, hyperlipidemia to be observed for new onset seizure disorder # new onset seizure activity with postictal state and acute hypoxemic respiratory failure -wean supplemental O2 as tolerated -head CT negative for any acute intracranial abnormality -MRI brain ordered -continue Keppra 500 mg b.i.d. -seizure precautions -aspiration precautions -EEG nikolas cooperative for eeg -neurology consult -monitor on telemetry # prolonged QTC--509 -likely secondary to antipsychotic use -monitor magnesium and potassium levels as above, replete as above -monitor on telemetry -repeat ecg + # decompensated bipolar disorder -noncompliant with psychiatric medications -psychiatry consult # hypertension -BP reasonably controlled on admission -noncompliant with antihypertensives at home secondary to decompensated bipolar disorder -resume antihypertensives # HLD -statin # chronic normocytic anemia -h/h above transfusion threshold DVT prophylaxis-Lovenox Full code- discussed with patient's son and healthcare proxy, Devonte Patient has MOLST stating DNR DNI but son say he's not sure if that is valid and to keep her full code until further discussion Quality Stroke Does the patient have a stroke diagnosis?: No VTE Prior VTE?: No VTE Risk Level:: Medical - moderate - high VTE Device Contraindication: Treatment Not Indicated VTE Drug Contraindication: N/A - Med Ordered
--- NOTE | 2023-12-15 15:16 | PM.EVENT ---
Event Note Date of Service: 12/15/23 Event Note: Pt aggitated in bed kicking legs, ripped out IV line. Unable to replace due to patient aggitation. She requires MRI brain and will be unable to sit for this. Discussed with psychiatry. Will give 5mg IM valium allow for faciliation of needed patient care which will help guide treatment and management. Time Spent With Patient Time: Total time managing care of this patient today ____ minutes.
[2023-12-15] MEDS: diazePAM 10 MG/2 ML CARTRIDGE 5 MG IM (15:23)
[2023-12-15 16:19] LABS: Glucose, Whole Blood 70 mg/dL (60-115)
--- NOTE | 2023-12-15 16:55 | PM.NEUROCN ---
History of Present Illness Data of Consult Service Date: 12/15/23 Primary Care Provider: Susana Simmons MD [facility] Reason for consult: New onset Sz This is a 83-year-old female with history of bipolar disorder, hypertension, hyperlipidemia presented to the ED from [facility] following a witnessed ?tonic-clonic seizure? lasting about 3 minutes. Patient is unable to provide history secondary to agitation. She had a 2nd witnessed focal seizure while in the ED with left eye gaze deviation, rapid blinking, and stiff legs bilaterally. The patient's son denies any history of seizure activity. He tells me that the patient has been noncompliant with her psychiatric medications for 3 wks because she is convinced she does not need them. And when she takes her medications, she is like a normal person. She does this periodically from time to time and stopped the medicine and nobody can reason with her to take it. She then decompensates and gets very agitated and irrational. She also becomes paranoid. She was recently hospitalized at [facility] And then discharged to [facility] for further management. He states that historically she will stop taking her medications thinking that her condition has improved and will subsequently decompensate. She has followed at the [facility] outpt for 20+ years. Review of Systems Review of Systems: Yes Unobtainable due to mental condition and Unobtainable due to mental status PMFSH Past Medical History Medical History HLD (hyperlipidemia) H/O: HTN (hypertension) Bipolar disorder Social History Social History Household Members: Unknown / Unable to assess Housing: Other Housing Other:: [facility] Unable to assess alcohol history related to: Unable to respond Patient Tobacco Use Status: Never used Tobacco Smoked in Last 30 Days: No Use of substances other than those prescribed or required for medical reasons: Unable to respond Currently Displaying Signs/Symptoms of Drug Intoxication Withdrawal: No Advance Directives: No Advance Directives Information Provided: No Advance Directives on File: No Do you have thoughts of harming others: None Do you have a plan to hurt others: No Plan Nutrition Risks: On aspiration precautions Patient : No : No Poor oral hygiene: No (Dentures) service: No Meds Allergies Allergy/AdvReac Type Severity Reaction Status Date / Time No Known Allergies Allergy Verified 12/14/23 12:31 Active Medications: Current Medications Acetaminophen (Acetaminophen 325 Mg Tablet) 650 mg PO Q6H PRN PRN Reason: Pain, Mild (Pain Scale 1-3) Amlodipine Besylate (Amlodipine Besylate 5 Mg Tablet) 5 mg PO DAILY [facility]; Protocol Last Admin: 12/15/23 08:17 Dose: Not Given Aripiprazole (Aripiprazole 5 Mg Tablet) 5 mg PO DAILY [facility] Last Admin: 12/15/23 08:17 Dose: Not Given Atorvastatin Calcium (Atorvastatin Calcium 20 Mg Tablet) 20 mg PO BEDTIME [facility] Last Admin: 12/14/23 22:01 Dose: Not Given Benztropine Mesylate (Benztropine Mesylate 0.5 Mg Tablet) 0.5 mg PO DAILY [facility] Last Admin: 12/15/23 08:17 Dose: Not Given Carbamazepine (Carbamazepine 100 Mg Tab.Chew) 200 mg PO BID [facility] Last Admin: 12/15/23 08:18 Dose: Not Given Dextrose (Dextrose 50 % 25 Gm/50 Ml Syringe) 25 gm IVPUSH Q15M PRN; Protocol PRN Reason: per Hypoglycemia Standing Ord. Last Admin: 12/15/23 08:02 Dose: 25 gm Duloxetine HCl (Duloxetine Hcl 30 Mg Capsule.Dr) 30 mg PO DAILY [facility] Last Admin: 12/15/23 08:18 Dose: Not Given Duloxetine HCl (Duloxetine Hcl 60 Mg Capsule.Dr) 60 mg PO DAILY [facility] Last Admin: 12/15/23 08:18 Dose: Not Given Enoxaparin Sodium (Enoxaparin Sodium 40 Mg/0.4 Ml Syringe) 40 mg SUBCUT Q24H [facility] Last Admin: 12/14/23 22:03 Dose: 40 mg Glucose (Glucose Gel 15 Gm Gel..Gram.) 15 gm PO Q15M PRN; Protocol PRN Reason: per Hypoglycemia Standing Ord. Levetiracetam (Keppra) 500 mg in 100 mls @ 400 mls/hr IV Q12H [facility] Last Infusion: 12/15/23 08:27 Dose: Infused Dextrose/Sodium Chloride (D51/2ns) 1,000 mls @ 100 mls/hr IVCONT .Q10H [facility] Last Admin: 12/15/23 09:50 Dose: 100 mls/hr Metoprolol Tartrate (Metoprolol Tartrate 50 Mg Tablet) 50 mg PO BID [facility]; Protocol Last Admin: 12/15/23 08:18 Dose: Not Given Multivitamins/Vitamin C (Multivitamin Tablet) 1 tab PO DAILY [facility] Last Admin: 12/15/23 08:19 Dose: Not Given Senna (Sennosides 8.6 Mg Tablet) 17.2 mg PO BEDTIME PRN PRN Reason: Constipation Sodium Chloride (0.9 % Sodium Chloride Flush 3 Ml Syringe) 3 ml IVFLUSH QSHIFT [facility] Last Admin: 12/15/23 14:39 Dose: Not Given Trazodone HCl (Trazodone Hcl 50 Mg Tablet) 50 mg PO BEDTIME PRN PRN Reason: Insomnia Vitamin E (Vitamin E (Dl,Tocopheryl Acet) 180 Mg (400 Unit) Capsule) 180 mg PO DAILY [facility] Last Admin: 12/15/23 08:19 Dose: Not Given Home Medications Medication Instructions Recorded Confirmed Last Taken Type amlodipine 5 mg tablet 5 mg PO DAILY 12/14/23 12/14/23 Unknown History aripiprazole 5 mg tablet 5 mg PO DAILY 12/14/23 12/14/23 Unknown History atorvastatin 20 mg tablet 20 mg PO BEDTIME 12/14/23 12/14/23 Unknown History benztropine 0.5 mg tablet 0.5 mg PO DAILY 12/14/23 12/14/23 Unknown History carbamazepine 100 mg chewable 200 mg PO BID 12/14/23 12/14/23 Unknown History tablet clindamycin HCl 150 mg capsule 300 mg PO QID 12/14/23 12/14/23 Unknown History duloxetine 30 mg capsule,delayed 30 mg PO DAILY 12/14/23 12/14/23 Unknown History release duloxetine 60 mg capsule,delayed 60 mg PO DAILY 12/14/23 12/14/23 Unknown History release fluphenazine decanoate 25 mg/mL 25 mg IM QMONTH 12/14/23 12/14/23 Unknown History injection solution metoprolol tartrate 25 mg tablet 50 mg PO BID 12/14/23 12/14/23 Unknown History multivitamin 1 tab PO DAILY 12/14/23 12/14/23 Unknown History sennosides 8.6 mg tablet (senna) 8.6 mg PO BEDTIME PRN Constipation 12/14/23 12/14/23 Unknown History trazodone 50 mg tablet 50 mg PO BEDTIME PRN Insomnia 12/14/23 12/14/23 Unknown History vitamin E 268 mg (400 unit) capsule 268 mg PO DAILY 12/14/23 12/14/23 Unknown History Physical Exam Vital Signs: Vital Signs: Last Vital Signs Temp 98.8 F 12/15/23 16:00 Pulse 71 12/15/23 16:00 Resp 18 12/15/23 16:00 BP 141/66 H 12/15/23 16:00 Pulse Ox 92 12/15/23 16:00 O2 Del Method Room Air 12/15/23 16:00 O2 Flow Rate 9 12/14/23 20:50 BMI result Body Mass Index 26.3 Const: Other: General: Alert, desorganized thought, Resp: CTA bilateral CVS: S1,S2,RRR GI: +BS, NT, no distention Skin: No rash Neuro: motor grossly intact Psych: appropriate affect Neuro: Other: Patient is agitated and bad Asked me who I was. She is restless in bed sometimes kicking her legs up in the air. Sometimes she sits up in bed. She does not want to be examined her or talk to. Her son was at the bedside. Results Labs 12/15/23 05:42 12/15/23 05:42 Labs: Short CBC 12/15/23 Range/Units 05:42 WBC 7.8 (4.8-10.8) X10*3/uL Hgb 10.0 L (12.0-16.0) g/dl Hct 31.5 L (37.0-47.0) % Plt Count 304 (160-400) X10*3/uL BMP 12/15/23 05:42 Sodium 145 Potassium 3.4 D Chloride 116 H Carbon Dioxide 20 L BUN 20 H Creatinine 0.82 Calcium 8.3 L D Urine 12/14/23 Range/Units 17:37 Urine Color Yellow Urine Appearance Clear Urine pH 6.0 (5.0-9.0) Ur Specific [place] 1.025 (1.005-1.025) Urine Protein Trace (Neg-Trace) mg/dL Urine Glucose (UA) Negative (Negative) mg/dL Assessment and Plan (1) Generalized tonic-clonic seizure: Status: Acute New-onset of seizures, probably not related to medication withdrawal. She gets a monthly injections as well Apripazole. CT scan of the brain is unremarkable for age, with cortical atrophy and ventriculomegaly. MRI cannot be done. In this state, nor can an EEG be done in an agitated state. In view of 2 seizures I would recommend starting Keppra 500 mg twice a day or IV if she would not take it orally. When she is calm and cooperative, an EEG can be performed. Plan 83-year-old female with history of bipolar disorder, hypertension, hyperlipidemia to be observed for new onset seizure disorder # new onset seizure activity with postictal state and acute hypoxemic respiratory failure -wean supplemental O2 as tolerated -head CT negative for any acute intracranial abnormality -MRI brain ordered -continue Keppra 500 mg b.i.d. -seizure precautions -aspiration precautions -EEG nikolas cooperative for eeg -neurology consult -monitor on telemetry # prolonged QTC--509 -likely secondary to antipsychotic use -monitor magnesium and potassium levels as above, replete as above -monitor on telemetry -repeat ecg + # decompensated bipolar disorder -noncompliant with psychiatric medications -psychiatry consult # hypertension -BP reasonably controlled on admission -noncompliant with antihypertensives at home secondary to decompensated bipolar disorder -resume antihypertensives # HLD -statin # chronic normocytic anemia -h/h above transfusion threshold DVT prophylaxis-Lovenox Full code- discussed with patient's son and healthcare proxy, Devonte Rucker Date of Service Date of Service: 12/15/23
[2023-12-15 20:05] LABS: Glucose, Whole Blood 108 mg/dL (60-115)
--- NOTE | 2023-12-15 22:50 | PC.NURSE ---
pt scheduled for MRI of the brain this afternoon, lost her IV access , restless , anxious.Medicated with Valium to help with anxiety during the test. According Anaid administrative support technician, pt lost her window for her test and MRI won't be done tonight. Danica COSME is aware. New IV access was placed on lt lower arm and IV fluids resumed. Blood sugar 70 this evening and 108 at 20:00 .Pt drank some fluids and ate ice cream with her son's assistance. Pt refused all her po meds tonight also lovenax injection. She is kicking and swinging , she is somehow cooperative with pt's observer
[2023-12-16] VITALS (7 sets, daily range): BP systolic 146–178; BP diastolic 64–90; PULSE 67–87; RESP 18–20; TEMP 36.2–37.4; O2SAT 95–99
[2023-12-16] MEDS: 0.9 % Sodium Chloride Flush 3 ML SYRINGE IVFLUSH ×3 (00:30→15:28)
[2023-12-16] MEDS: diazePAM 10 MG/2 ML CARTRIDGE 5 MG IM (00:48)
[2023-12-16 02:02] LABS: Glucose, Whole Blood 119 mg/dL (60-115)
[2023-12-16] MEDS: Dextrose 5 % and 0.45 % NaCl 1,000 ML 100 ML IVCONT ×2 (05:00→15:21)
[2023-12-16 05:08] LABS: Estimated Average Glucose 103 mg/dL; Hemoglobin A1c % 5.2 % (<6.0)
[2023-12-16] MEDS: levETIRAcetam in NaCl (iso-os) 500 MG/100 ML PIGGYBACK 400 MG IV (07:29)
[2023-12-16 07:38] LABS: Glucose, Whole Blood 103 mg/dL (60-115)
--- NOTE | 2023-12-16 10:58 | MHC.SLORD ---
Speech Language Pathology Order Status: Per MD, HOGSHEAD STOCK CLERK swallow eval ordered to determine recommendation for solids. HOGSHEAD STOCK CLERK attempted eval this morning following full liquid diet breakfast. Sitter reports patient was coughing/choking during breakfast on solids (yogurt) and liquids. Upon HOGSHEAD STOCK CLERK arrival, patient was slid down in bed w/ gingerale in hand w/ straw. Patient was repositioned upright but not cooperative to participate in HOGSHEAD STOCK CLERK evaluation. HOGSHEAD STOCK CLERK to plan to re-attempt during lunch today.
--- NOTE | 2023-12-16 11:42 | MHC.CM.PN ---
EMR reviewed and per MD rounds, pt is not medically cleared for D/C due to pending brain MRI (if able to obtain when pt not agitated), neuro and psych following pts case. HCP is invoked. CM will continue to follow.
[2023-12-16 14:10] LABS: Glucose, Whole Blood 108 mg/dL (60-115)
--- NOTE | 2023-12-16 14:54 | P.CNPS_ITS ---
History of Present Illness Date of Service: Chief Complaint: new onset seizures Discussed with referring provider: Yes Sources of Information: patient interviewed, chart reviewed and crisis/core team assessment reviewed HPI Narrative: Interim: Pt more talkative today, not as mute as yesterday. She did receive diazepam 5mg IM prior to MRI. 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 Son was also present during visit who reports this is uncharacterist of his mother and only present when having episode of esdras. She denies SI/HI. She reports only medication she needs is through IV. She continues to decline oral medication for both psychiatric and medical conditions. Past Psychiatric History: Inpt: 4 in the past unclear when last admission was and where [place] [facility] [place] med trials: fluphenazine, abilify, carbamazepine, cymbalta [facility] Medical History (Updated 12/16/23 @ 10:14 by Radha Walsh) HLD (hyperlipidemia) H/O: HTN (hypertension) Bipolar disorder Diagnostics Vital Signs (24Hr): Vital Signs - 24 hr 12/15/23 16:00 12/15/23 20:00 12/15/23 20:56 Temperature 98.8 F 98.0 F Pulse Rate 71 84 Respiratory Rate 18 20 Blood Pressure 141/66 H 150/67 H Pulse Oximetry 92 99 Oxygen Delivery Method Room Air Room Air 12/16/23 00:00 12/16/23 05:00 12/16/23 07:08 Temperature 99.4 F 97.9 F Pulse Rate 67 84 67 Respiratory Rate 18 20 Blood Pressure 168/78 H 146/64 H Pulse Oximetry 98 97 96 Oxygen Delivery Method Room Air Room Air Room Air 12/16/23 10:51 Temperature 98.9 F Pulse Rate 87 Respiratory Rate 20 Blood Pressure 174/86 H Pulse Oximetry 95 Oxygen Delivery Method Room Air BMI result Body Mass Index 26.3 Labs 12/15/23 05:42 12/15/23 05:42 Labs: Laboratory Results - last 48 hr 12/14/23 12/14/23 12/14/23 13:59 17:37 19:53 WBC RBC Hgb Hct MCV MCH MCHC RDW Plt Count MPV Immature Gran % (Auto) Neut % (Auto) Lymph % (Auto) [place] % (Auto) Eos % (Auto) Baso % (Auto) Lymph # (Auto) [place] # (Auto) Eos # (Auto) Baso # (Auto) Abs Immat Gran (auto) Absolute Neuts (auto) Absolute Nucleated RBC Nucleated RBC % (auto) Sodium Potassium Chloride Carbon Dioxide Anion Gap BUN Creatinine Estim Creat Clear Calc Estimated GFR POC Glucose Random Glucose Estimat Average Glucose Hemoglobin A1c % Calcium Magnesium 2.3 Troponin I High Sens 32.3 H Urine Color Yellow Urine Appearance Clear Urine pH 6.0 Ur Specific [place] 1.025 Urine Protein Trace Urine Glucose (UA) Negative Urine Ketones 15 Urine Blood Negative Urine Nitrite Negative Ur Leukocyte Esterase Negative 12/15/23 12/15/23 12/15/23 01:43 02:57 05:42 WBC 7.8 RBC 3.51 L Hgb 10.0 L Hct 31.5 L MCV 89.7 MCH 28.5 MCHC 31.7 RDW 13.6 Plt Count 304 MPV 10.5 Immature Gran % (Auto) 0.4 Neut % (Auto) 64.9 Lymph % (Auto) 18.3 L [place] % (Auto) 13.8 H Eos % (Auto) 2.1 Baso % (Auto) 0.5 Lymph # (Auto) 1.4 [place] # (Auto) 1.1 Eos # (Auto) 0.2 Baso # (Auto) 0.0 Abs Immat Gran (auto) 0.03 Absolute Neuts (auto) 5.1 Absolute Nucleated RBC 0.000 Nucleated RBC % (auto) 0.0 Sodium 145 Potassium 3.4 D Chloride 116 H Carbon Dioxide 20 L Anion Gap 12 BUN 20 H Creatinine 0.82 Estim Creat Clear Calc 43.9 Estimated GFR > 60 POC Glucose 64 164 H Random Glucose 62 Estimat Average Glucose 103 Hemoglobin A1c % 5.2 Calcium 8.3 L D Magnesium 2.0 Troponin I High Sens Urine Color Urine Appearance Urine pH Ur Specific [place] Urine Protein Urine Glucose (UA) Urine Ketones Urine Blood Urine Nitrite Ur Leukocyte Esterase 12/15/23 12/15/23 12/15/23 07:54 08:23 13:11 WBC RBC Hgb Hct MCV MCH MCHC RDW Plt Count MPV Immature Gran % (Auto) Neut % (Auto) Lymph % (Auto) [place] % (Auto) Eos % (Auto) Baso % (Auto) Lymph # (Auto) [place] # (Auto) Eos # (Auto) Baso # (Auto) Abs Immat Gran (auto) Absolute Neuts (auto) Absolute Nucleated RBC Nucleated RBC % (auto) Sodium Potassium Chloride Carbon Dioxide Anion Gap BUN Creatinine Estim Creat Clear Calc Estimated GFR POC Glucose 57 L* 157 H 89 Random Glucose Estimat Average Glucose Hemoglobin A1c % Calcium Magnesium Troponin I High Sens Urine Color Urine Appearance Urine pH Ur Specific [place] Urine Protein Urine Glucose (UA) Urine Ketones Urine Blood Urine Nitrite Ur Leukocyte Esterase 12/15/23 12/15/23 12/16/23 16:15 19:54 01:58 WBC RBC Hgb Hct MCV MCH MCHC RDW Plt Count MPV Immature Gran % (Auto) Neut % (Auto) Lymph % (Auto) [place] % (Auto) Eos % (Auto) Baso % (Auto) Lymph # (Auto) [place] # (Auto) Eos # (Auto) Baso # (Auto) Abs Immat Gran (auto) Absolute Neuts (auto) Absolute Nucleated RBC Nucleated RBC % (auto) Sodium Potassium Chloride Carbon Dioxide Anion Gap BUN Creatinine Estim Creat Clear Calc Estimated GFR POC Glucose 70 108 119 H Random Glucose Estimat Average Glucose Hemoglobin A1c % Calcium Magnesium Troponin I High Sens Urine Color Urine Appearance Urine pH Ur Specific [place] Urine Protein Urine Glucose (UA) Urine Ketones Urine Blood Urine Nitrite Ur Leukocyte Esterase 12/16/23 12/16/23 07:34 14:04 WBC RBC Hgb Hct MCV MCH MCHC RDW Plt Count MPV Immature Gran % (Auto) Neut % (Auto) Lymph % (Auto) [place] % (Auto) Eos % (Auto) Baso % (Auto) Lymph # (Auto) [place] # (Auto) Eos # (Auto) Baso # (Auto) Abs Immat Gran (auto) Absolute Neuts (auto) Absolute Nucleated RBC Nucleated RBC % (auto) Sodium Potassium Chloride Carbon Dioxide Anion Gap BUN Creatinine Estim Creat Clear Calc Estimated GFR POC Glucose 103 108 Random Glucose Estimat Average Glucose Hemoglobin A1c % Calcium Magnesium Troponin I High Sens Urine Color Urine Appearance Urine pH Ur Specific [place] Urine Protein Urine Glucose (UA) Urine Ketones Urine Blood Urine Nitrite Ur Leukocyte Esterase Imaging Radiology Impressions: ITS Impressions Head CT 12/14/23 15:50 IMPRESSION: No acute intracranial pathology. Mental Status Exam Mental Status Exam Narrative: Appearance: wearing hospital gown, fair hygiene, in NAD Behavior: overly friendly Speech: more clear, hyperverbal not pressured, regular tone, spontaneous TP: disorganized, slightly more coherent Affect: expansive, flirtatious AH/VH: appears internally preoccupied, Delusions: overly friendly, more flirtatious themes with male staff in the room Insight/judgment: impaired x 2 Medications Medications Current Medications Acetaminophen (Acetaminophen 325 Mg Tablet) 650 mg PO Q6H PRN PRN Reason: Pain, Mild (Pain Scale 1-3) Amlodipine Besylate (Amlodipine Besylate 5 Mg Tablet) 5 mg PO DAILY [facility]; Protocol Last Admin: 12/16/23 10:34 Dose: Not Given Aripiprazole (Aripiprazole 5 Mg Tablet) 5 mg PO DAILY [facility] Last Admin: 12/16/23 10:34 Dose: Not Given Atorvastatin Calcium (Atorvastatin Calcium 20 Mg Tablet) 20 mg PO BEDTIME [facility] Last Admin: 12/15/23 22:32 Dose: Not Given Benztropine Mesylate (Benztropine Mesylate 0.5 Mg Tablet) 0.5 mg PO DAILY [facility] Last Admin: 12/16/23 10:34 Dose: Not Given Carbamazepine (Carbamazepine 100 Mg Tab.Chew) 200 mg PO BID [facility] Last Admin: 12/16/23 10:34 Dose: Not Given Dextrose (Dextrose 50 % 25 Gm/50 Ml Syringe) 25 gm IVPUSH Q15M PRN; Protocol PRN Reason: per Hypoglycemia Standing Ord. Last Admin: 12/15/23 08:02 Dose: 25 gm Duloxetine HCl (Duloxetine Hcl 30 Mg Capsule.) 30 mg PO DAILY [facility] Last Admin: 12/16/23 10:34 Dose: Not Given Duloxetine HCl (Duloxetine Hcl 60 Mg Capsule.) 60 mg PO DAILY [facility] Last Admin: 12/16/23 10:35 Dose: Not Given Enoxaparin Sodium (Enoxaparin Sodium 40 Mg/0.4 Ml Syringe) 40 mg SUBCUT Q24H [facility] Last Admin: 12/15/23 22:32 Dose: Not Given Glucose (Glucose Gel 15 Gm Gel..Gram.) 15 gm PO Q15M PRN; Protocol PRN Reason: per Hypoglycemia Standing Ord. Levetiracetam (Keppra) 500 mg in 100 mls @ 400 mls/hr IV Q12H [facility] Last Infusion: 12/16/23 07:46 Dose: Infused Dextrose/Sodium Chloride (D51/2ns) 1,000 mls @ 100 mls/hr IVCONT .Q10H [facility] Last Admin: 12/16/23 05:00 Dose: 100 mls/hr Metoprolol Tartrate (Metoprolol Tartrate 50 Mg Tablet) 50 mg PO BID [facility]; Protocol Last Admin: 12/16/23 10:35 Dose: Not Given Multivitamins/Vitamin C (Multivitamin Tablet) 1 tab PO DAILY [facility] Last Admin: 12/16/23 10:35 Dose: Not Given Senna (Sennosides 8.6 Mg Tablet) 17.2 mg PO BEDTIME PRN PRN Reason: Constipation Sodium Chloride (0.9 % Sodium Chloride Flush 3 Ml Syringe) 3 ml IVFLUSH QSHIFT [facility] Last Admin: 12/16/23 07:30 Dose: 3 ml Trazodone HCl (Trazodone Hcl 50 Mg Tablet) 50 mg PO BEDTIME PRN PRN Reason: Insomnia Vitamin E (Vitamin E (Dl,Tocopheryl Acet) 180 Mg (400 Unit) Capsule) 180 mg PO DAILY [facility] Last Admin: 12/16/23 10:35 Dose: Not Given Allergies Allergies Allergy/AdvReac Type Severity Reaction Status Date / Time No Known Allergies Allergy Verified 12/14/23 12:31 Assessment & Plan Assessment & Plan (1) Bipolar disorder with severe esdras: Status: Acute Code(s): F31.13 - Bipolar disorder, current episode manic without psychotic features, severe Plan Mrs. Bob is a 83 year-old woman with hx of Bipolar Disorder who was initially admitted to [place] for psychiatric care. She had presented as paranoid about medications and being monitored, not talking, declining to take medications. She was transferred for evaluation of what appears to be tonic- clonic seizure (she does not have prior hx of seizures according to family). She continues to present with mutism, paranoia ideas, not accepting treatment. This pattern chart writer discussed risks, benefits and alternative treatment options with son as pt does not appear to have capacity to make medical decisions at this time. She does have s/s of catatonia with underlying psychosis--> high potency antipsychotic like haldol may make it worse. pending collateral info from OP to gathered medication hx. PLAN 12/16/2023: Pt presents less mute, speech more intelligible, flirtatious behaviors and overly friendly. She continues to decline oral medications. Called outpatient psych provider at [facility] [place] [phone], left with call back number. At this point will recommend starting depakote 500mg IV BID- awaiting collateral from outpatient since not clear if pt had been on this medication as mood stabilizer in the past or not. Check depakote level in 5-7 days with ammonia levels and LFTs. - if possible to change keppra to depakote for seizure coverage will be best to decrease polypharmacy AED. -Next Fluphenazine 25mg IM qmonthly due 12/26/23 - if need PRN can use diazepam 2.5mg IV BID prn if ineffective olanzapine 5mg po q6h prn agitation. Now, monitor Qtc<500ms (she does have LBBB- may need correction formula to calculate Qtc), Maintain K>4, Mg>2. Total time managing care of this patient today ____ minutes.
--- NOTE | 2023-12-16 15:12 | MHC.SL.SWA ---
Risk of Aspiration Due to: Neurological Condition Weak Voice Dysphasia Diet Status: UPGRADE from full liquid diet Liquid Consistency and Strategies for Safe Swallow: Liquid Intake Recommendation: Thin Liquid Intake Strategies: Small Sips Solid Food Consistency: Dietary Recommendations: REGULAR solids w/ GROUND MEAT Additional Modifications to Solid Foods: Moisten w/ sauce/gravy Oral Medication Intake: *Patient reportedly refusing all meds and not happy w/ meds hidden in food Please contact the pharmacy regarding appropriate crushable or liquid drug formulations that are available whenever modified delivery is recommended. Compensatory Strategies and Precautions to be Taken for Safe Swallow: Sitting Upright (90 deg) Small Bites and Sips Alternate Liquids/Solids Oral Check Avoid Specific Foods Supervision While Eating and Drinking for Safe Swallow: Total Supervision (1:1) Foods to Avoid: Avoid hard, sticky, tough to chew foods Recommendation for Speech: Comment: Recommend GROUND MEATS d/t loose fitting dentures. Recommend REGULAR solids to provide patient with more options that patient is OK to eat including soft & moistened breads (i.e. bread dipped in soup), soft noodles, soups. BIOMETRIC TECHNICIAN spoke w/ kitchen staff who recommended regular solids w/ ground meats. Recommend THIN liquids. Recommend FULL SUPERVISION during meals. Assistance as needed. Ensure upright position. Alternate liquids & solids. Oral check. Care team (MD, RN, RD) updated of recommendations via [place]. Medication delivery to be decided by MD/RN, patient reportedly refusing all meds. Consider supplemental nutrition products to increase nutritional needs. Continue to monitor throat clearing behavior and consider ENT consultation d/t frequent throat clearing. Talent Acquisition Coordinator Clinican/Clinical Fellow: No Supervisory Statement: I have reviewed and agree with the student/clinical fellow's documentation: N/A Speech Language Pathologist: Marlene Luciano M.A., CCC-BIOMETRIC TECHNICIAN
[2023-12-16] MEDS: Valproic Acid (as Sodium Salt) 500 MG in Dextrose 5 % 50 ML 55 MG IV (16:45)
--- NOTE | 2023-12-16 17:40 | P.PNIM_ITS ---
Subjective Subjective Date of Service: 12/17/23 Interval History: f/u on delirium, decompensated bipolar, she seems a little better, but still desorganized, refusing to take meds she was eating breakfast this morning Physical Exam 2 Vital Signs: Vital Signs: Last Vital Signs Temp 98.0 F 12/16/23 15:33 Pulse 80 12/16/23 15:33 Resp 18 12/16/23 15:33 BP 178/77 H 12/16/23 15:33 Pulse Ox 95 12/16/23 15:33 O2 Del Method Room Air 12/16/23 15:33 O2 Flow Rate 9 12/14/23 20:50 BMI result Body Mass Index 26.3 Const: Other: General: Alert, desorganized thought, Resp: CTA bilateral CVS: S1,S2,RRR GI: +BS, NT, no distention Skin: No rash Neuro: motor grossly intact Psych: appropriate affect Neuro: Other: Patient is agitated and bad Asked me who I was. She is restless in bed sometimes kicking her legs up in the air. Sometimes she sits up in bed. She does not want to be examined her or talk to. Her son was at the bedside. Objective Data Active Medications Acetaminophen (Acetaminophen 325 Mg Tablet) 650 mg PO Q6H PRN PRN Reason: Pain, Mild (Pain Scale 1-3) Amlodipine Besylate (Amlodipine Besylate 5 Mg Tablet) 5 mg PO DAILY [facility]; Protocol Last Admin: 12/16/23 10:34 Dose: Not Given Documented By: ЕКАТЕРИНА Non-Admin Reason: Patient Refused Aripiprazole (Aripiprazole 5 Mg Tablet) 5 mg PO DAILY [facility] Last Admin: 12/16/23 10:34 Dose: Not Given Documented By: ЕКАТЕРИНА Non-Admin Reason: Patient Refused Atorvastatin Calcium (Atorvastatin Calcium 20 Mg Tablet) 20 mg PO BEDTIME [facility] Last Admin: 12/15/23 22:32 Dose: Not Given Documented By: LUBNA Non-Admin Reason: Patient Refused Benztropine Mesylate (Benztropine Mesylate 0.5 Mg Tablet) 0.5 mg PO DAILY [facility] Last Admin: 12/16/23 10:34 Dose: Not Given Documented By: ЕКАТЕРИНА Non-Admin Reason: Patient Refused Carbamazepine (Carbamazepine 100 Mg Tab.Chew) 200 mg PO BID [facility] Last Admin: 12/16/23 10:34 Dose: Not Given Documented By: ЕКАТЕРИНА Non-Admin Reason: Patient Refused Dextrose (Dextrose 50 % 25 Gm/50 Ml Syringe) 25 gm IVPUSH Q15M PRN; Protocol PRN Reason: per Hypoglycemia Standing Ord. Last Admin: 12/15/23 08:02 Dose: 25 gm Documented By: DIA Duloxetine HCl (Duloxetine Hcl 30 Mg Capsule.) 30 mg PO DAILY [facility] Last Admin: 12/16/23 10:34 Dose: Not Given Documented By: ЕКАТЕРИНА Non-Admin Reason: Patient Refused Duloxetine HCl (Duloxetine Hcl 60 Mg Capsule.) 60 mg PO DAILY [facility] Last Admin: 12/16/23 10:35 Dose: Not Given Documented By: ЕКАТЕРИНА Non-Admin Reason: Patient Refused Enoxaparin Sodium (Enoxaparin Sodium 40 Mg/0.4 Ml Syringe) 40 mg SUBCUT Q24H [facility] Last Admin: 12/15/23 22:32 Dose: Not Given Documented By: LUBNA Non-Admin Reason: Patient Refused Glucose (Glucose Gel 15 Gm Gel..Gram.) 15 gm PO Q15M PRN; Protocol PRN Reason: per Hypoglycemia Standing Ord. Levetiracetam (Keppra) 500 mg in 100 mls @ 400 mls/hr IV Q12H [facility] Last Infusion: 12/16/23 07:46 Dose: Infused Documented By: ЕКАТЕРИНА Dextrose/Sodium Chloride (D51/2ns) 1,000 mls @ 100 mls/hr IVCONT .Q10H [facility] Last Admin: 12/16/23 15:21 Dose: 100 mls/hr Documented By: LUBNA Valproic Acid 500 mg/ Dextrose 55 mls @ 55 mls/hr IV Q12H [facility] Last Admin: 12/16/23 16:45 Dose: 55 mls/hr Documented By: LUBNA Metoprolol Tartrate (Metoprolol Tartrate 50 Mg Tablet) 50 mg PO BID [facility]; Protocol Last Admin: 12/16/23 10:35 Dose: Not Given Documented By: ЕКАТЕРИНА Non-Admin Reason: Patient Refused Multivitamins/Vitamin C (Multivitamin Tablet) 1 tab PO DAILY [facility] Last Admin: 12/16/23 10:35 Dose: Not Given Documented By: ЕКАТЕРИНА Non-Admin Reason: Patient Refused Senna (Sennosides 8.6 Mg Tablet) 17.2 mg PO BEDTIME PRN PRN Reason: Constipation Sodium Chloride (0.9 % Sodium Chloride Flush 3 Ml Syringe) 3 ml IVFLUSH QSHIFT [facility] Last Admin: 12/16/23 15:28 Dose: 3 ml Documented By: LUBNA Trazodone HCl (Trazodone Hcl 50 Mg Tablet) 50 mg PO BEDTIME PRN PRN Reason: Insomnia Vitamin E (Vitamin E (Dl,Tocopheryl Acet) 180 Mg (400 Unit) Capsule) 180 mg PO DAILY [facility] Last Admin: 12/16/23 10:35 Dose: Not Given Documented By: ЕКАТЕРИНА Non-Admin Reason: Patient Refused Labs 12/15/23 05:42 12/15/23 05:42 Labs: Laboratory Results - last 24 hr 12/15/23 12/15/23 12/16/23 05:42 19:54 01:58 POC Glucose 108 119 H Estimat Average Glucose 103 Hemoglobin A1c % 5.2 12/16/23 12/16/23 07:34 14:04 POC Glucose 103 108 Estimat Average Glucose Hemoglobin A1c % Assessment and Plan (1) Bipolar disorder with severe esdras: Status: Acute (2) Generalized tonic-clonic seizure: Status: Acute Plan 83/F with bipolar disorder, HTN, HLD, hyperlipidemia admitted for new seizure and decompensaed bipolar # new onset seizure activity likely from Psych med withdrawal -enable to do eeg or mri d/t agitation, started keppra and no further episode, when feasible will get mri and or eeg -Keppra changed to Depakote for concomitant treatment of bipolar -Valium PRN for anxiety # decompensated bipolar disorder d/t non compliance -med per direction of Psych and brandy ultimately need sarina Psych admit -discusing with Psych on dialy basis # prolonged QTC--509, repeat ECG but may prove very difficult due to agitated state # HTN, high d/t agitation continue metoprolol, Norvasc increased to 10 # HLD -statin # chronic normocytic anemia -h/h above transfusion threshold #Hypoglycemia yesterday, likely from poor intake and possible psych meds sugars are better, continue D5, 1/2 NS DVT prophylaxis-Lovenox Full code- discussed with patient's son and healthcare proxy, Devonte Patient has [facility] stating DNR DNI but son say he's not sure if that is valid and to keep her full code until further discussion Quality Stroke Does the patient have a stroke diagnosis?: No VTE Prior VTE?: No VTE Risk Level:: Medical - moderate - high VTE Device Contraindication: Treatment Not Indicated VTE Drug Contraindication: N/A - Med Ordered
[2023-12-16 20:24] LABS: Glucose, Whole Blood 125 mg/dL (60-115)
--- NOTE | 2023-12-16 21:58 | PC.NURSE ---
pt had few hr of sleep this afternoon , after he woke up ,she stated that she is hungry and she ate 50% of her dinner by herself with supervision . pt alert to person and place, stated I may be slow and I need some time . . Refusing all PO meds, refused Lovenox. More cooperative tonight during personal care , she is not kicking , not swinging tonight
[2023-12-17] MEDS: 0.9 % Sodium Chloride Flush 3 ML SYRINGE IVFLUSH ×4 (00:12→20:26)
[2023-12-17] MEDS: Dextrose 5 % and 0.45 % NaCl 1,000 ML 100 ML IVCONT ×2 (00:12→08:58)
[2023-12-17 02:16] LABS: Glucose, Whole Blood 102 mg/dL (60-115)
[2023-12-17 04:00] VITALS: BP 181/68
[2023-12-17] MEDS: Valproic Acid (as Sodium Salt) 500 MG in Dextrose 5 % 50 ML 55 MG IV ×2 (04:28→15:18)
[2023-12-17] MEDS: hydrALAZINE HCl 20 MG/ML VIAL 5 MG IVPUSH (05:20)
[2023-12-17] MEDS: diazePAM 10 MG/2 ML CARTRIDGE 2.5 MG IVPUSH (05:21)
[2023-12-17 07:09] VITALS: BP 175/75; PULSE 78; RESP 20; TEMP 37; O2SAT 97
[2023-12-17 08:26] LABS: Glucose, Whole Blood 87 mg/dL (60-115)
[2023-12-17] MEDS: Vitamin E (Dl,Tocopheryl Acet) 180 MG (400 UNIT) CAPSULE PO (08:57)
[2023-12-17] MEDS: Benztropine Mesylate 0.5 MG TABLET PO (08:57)
[2023-12-17] MEDS: amLODIPine Besylate 10 MG TABLET PO (08:57)
[2023-12-17] MEDS: DULoxetine HCl 60 MG CAPSULE.DR PO (08:57)
[2023-12-17] MEDS: Multivitamin TABLET 1 TAB PO (08:57)
[2023-12-17] MEDS: carBAMazepine 100 MG TAB.CHEW 200 MG PO ×2 (08:57→21:08)
[2023-12-17 11:46] VITALS: BP 158/67; PULSE 92; RESP 20; TEMP 37; O2SAT 96
--- NOTE | 2023-12-17 13:58 | MHC.SLORD ---
Speech Language Pathology Order Status: Attempted to see patient at lunch, per son, patient had finished a late breakfast a half hour earlier and was not hungry. Son reported selecting softer foods from the regular menue which was going well. PROJECT COORDINATOR will f/u X1 at a meal to assure toleration.
[2023-12-17 14:30] LABS: Glucose, Whole Blood 89 mg/dL (60-115)
[2023-12-17 18:17] LABS: Glucose, Whole Blood 97 mg/dL (60-115)
[2023-12-17 20:00] VITALS: BP 170/77; PULSE 82; RESP 18; TEMP 37.1; O2SAT 94
[2023-12-17] MEDS: Metoprolol Tartrate 50 MG TABLET PO (20:25)
[2023-12-17] MEDS: Atorvastatin Calcium 20 MG TABLET PO (20:25)
[2023-12-17] MEDS: Enoxaparin Sodium 40 MG/0.4 ML SYRINGE SUBCUT (20:25)
[2023-12-17 20:51] LABS: Glucose, Whole Blood 108 mg/dL (60-115)
[2023-12-17 23:45] VITALS: BP 124/60; PULSE 91; RESP 18; TEMP 36.7; O2SAT 96
[2023-12-18] VITALS (8 sets, daily range): BP systolic 134–172; BP diastolic 55–77; PULSE 74–90; RESP 16–20; TEMP 36.8–37.2; O2SAT 94–98
[2023-12-18 02:41] LABS: Glucose, Whole Blood 69 mg/dL (60-115)
[2023-12-18] MEDS: Dextrose 50 % 25 GM/50 ML SYRINGE IVPUSH (03:07)
[2023-12-18] MEDS: Valproic Acid (as Sodium Salt) 500 MG in Dextrose 5 % 50 ML 55 MG IV ×2 (03:49→16:43)
[2023-12-18 04:07] LABS: Glucose, Whole Blood 159 mg/dL (60-115)
[2023-12-18] MEDS: 0.9 % Sodium Chloride Flush 3 ML SYRINGE IVFLUSH ×2 (07:45→16:43)
[2023-12-18 08:08] LABS: Glucose, Whole Blood 68 mg/dL (60-115)
[2023-12-18 08:52] LABS: Glucose, Whole Blood 87 mg/dL (60-115)
[2023-12-18] MEDS: DULoxetine HCl 30 MG CAPSULE.DR PO (09:44)
[2023-12-18] MEDS: Vitamin E (Dl,Tocopheryl Acet) 180 MG (400 UNIT) CAPSULE PO (09:44)
[2023-12-18] MEDS: carBAMazepine 100 MG TAB.CHEW 200 MG PO (09:44)
[2023-12-18] MEDS: Metoprolol Tartrate 50 MG TABLET PO ×2 (09:44→19:41)
[2023-12-18] MEDS: ARIPiprazole 5 MG TABLET PO (09:44)
[2023-12-18] MEDS: Multivitamin TABLET 1 TAB PO (09:44)
[2023-12-18] MEDS: amLODIPine Besylate 10 MG TABLET PO (09:45)
[2023-12-18] MEDS: Benztropine Mesylate 0.5 MG TABLET PO (09:45)
[2023-12-18] MEDS: DULoxetine HCl 60 MG CAPSULE.DR PO (09:45)
--- NOTE | 2023-12-18 11:05 | P.PNIM_ITS ---
Subjective Subjective Date of Service: 12/18/23 Interval History: f/u on delirium, decompensated bipolar, no appreciable change from yesterday, she is refusing meds, and remains desorganized in her thought Physical Exam 2 Vital Signs: Vital Signs: Last Vital Signs Temp 98.7 F 12/18/23 07:35 Pulse 90 12/18/23 07:35 Resp 20 12/18/23 07:35 BP 140/64 H 12/18/23 07:35 Pulse Ox 94 12/18/23 07:35 O2 Del Method Room Air 12/18/23 07:35 O2 Flow Rate 9 12/14/23 20:50 BMI result Body Mass Index 26.3 Const: Other: General: Alert, desorganized thought, Resp: CTA bilateral CVS: S1,S2,RRR GI: +BS, NT, no distention Skin: No rash Neuro: motor grossly intact Psych: appropriate affect Objective Data Active Medications Acetaminophen (Acetaminophen 325 Mg Tablet) 650 mg PO Q6H PRN PRN Reason: Pain, Mild (Pain Scale 1-3) Amlodipine Besylate (Amlodipine Besylate 10 Mg Tablet) 10 mg PO DAILY [facility]; Protocol Last Admin: 12/18/23 09:45 Dose: 10 mg Documented By: SHAKIRA Aripiprazole (Aripiprazole 5 Mg Tablet) 5 mg PO DAILY [facility] Last Admin: 12/18/23 09:44 Dose: 5 mg Documented By: SHAKIRA Atorvastatin Calcium (Atorvastatin Calcium 20 Mg Tablet) 20 mg PO BEDTIME [facility] Last Admin: 12/17/23 20:25 Dose: 20 mg Documented By: ARIEL Benztropine Mesylate (Benztropine Mesylate 0.5 Mg Tablet) 0.5 mg PO DAILY [facility] Last Admin: 12/18/23 09:45 Dose: 0.5 mg Documented By: SHAKIRA Carbamazepine (Carbamazepine 100 Mg Tab.Chew) 200 mg PO BID [facility] Last Admin: 12/18/23 09:44 Dose: 200 mg Documented By: SHAKIRA Dextrose (Dextrose 50 % 25 Gm/50 Ml Syringe) 25 gm IVPUSH Q15M PRN; Protocol PRN Reason: per Hypoglycemia Standing Ord. Last Admin: 12/18/23 03:07 Dose: 25 gm Documented By: ARIEL Diazepam (Diazepam 10 Mg/2 Ml Cartridge) 2.5 mg IVPUSH Q12H PRN PRN Reason: anxiety/restlessness Last Admin: 12/17/23 05:21 Dose: 2.5 mg Documented By: LUIS Comments: pt restless, swinging legs over railing Duloxetine HCl (Duloxetine Hcl 30 Mg Capsule.) 30 mg PO DAILY [facility] Last Admin: 12/18/23 09:44 Dose: 30 mg Documented By: SHAKIRA Duloxetine HCl (Duloxetine Hcl 60 Mg Capsule.) 60 mg PO DAILY [facility] Last Admin: 12/18/23 09:45 Dose: 60 mg Documented By: SHAKIRA Enoxaparin Sodium (Enoxaparin Sodium 40 Mg/0.4 Ml Syringe) 40 mg SUBCUT Q24H [facility] Last Admin: 12/17/23 20:25 Dose: 40 mg Documented By: ARIEL Glucose (Glucose Gel 15 Gm Gel..Gram.) 15 gm PO Q15M PRN; Protocol PRN Reason: per Hypoglycemia Standing Ord. Hydralazine HCl (Hydralazine Hcl 20 Mg/Ml Vial) 5 mg IVPUSH Q6H PRN; Protocol PRN Reason: for SBP > 180 Last Admin: 12/17/23 05:20 Dose: 5 mg Documented By: LUIS Comments: BP 181/78 Valproic Acid 500 mg/ Dextrose 55 mls @ 55 mls/hr IV Q12H [facility] Last Infusion: 12/18/23 04:50 Dose: Infused Documented By: ARIEL Metoprolol Tartrate (Metoprolol Tartrate 50 Mg Tablet) 50 mg PO BID [facility]; Protocol Last Admin: 12/18/23 09:44 Dose: 50 mg Documented By: SHAKIRA Multivitamins/Vitamin C (Multivitamin Tablet) 1 tab PO DAILY [facility] Last Admin: 12/18/23 09:44 Dose: 1 tab Documented By: SHAKIRA Senna (Sennosides 8.6 Mg Tablet) 17.2 mg PO BEDTIME PRN PRN Reason: Constipation Sodium Chloride (0.9 % Sodium Chloride Flush 3 Ml Syringe) 3 ml IVFLUSH QSHIFT [facility] Last Admin: 12/18/23 07:45 Dose: 3 ml Documented By: SHAKIRA Comments: IV not working, removed Trazodone HCl (Trazodone Hcl 50 Mg Tablet) 50 mg PO BEDTIME PRN PRN Reason: Insomnia Vitamin E (Vitamin E (Dl,Tocopheryl Acet) 180 Mg (400 Unit) Capsule) 180 mg PO DAILY [facility] Last Admin: 12/18/23 09:44 Dose: 180 mg Documented By: SHAKIRA Labs 12/15/23 05:42 12/15/23 05:42 Labs: Laboratory Results - last 24 hr 12/17/23 12/17/23 12/17/23 14:27 18:12 20:19 POC Glucose 89 97 108 12/18/23 12/18/23 12/18/23 02:37 03:59 08:04 POC Glucose 69 159 H 68 12/18/23 08:47 POC Glucose 87 Assessment and Plan (1) Bipolar disorder with severe esdras: Status: Acute (2) Generalized tonic-clonic seizure: Status: Acute Plan 83/F with bipolar disorder, HTN, HLD, hyperlipidemia admitted for new seizure and decompensaed bipolar # new onset seizure activity likely from Psych med withdrawal -enable to do eeg or mri d/t agitation and lakc of cooperatioon, initially given keppra and no further episode, when feasible will get mri and or eeg -Keppra changed to Depakote for concomitant treatment of bipolar -Valium PRN for anxiety -psych following # decompensated bipolar disorder d/t non compliance -med per direction of Psych and brandy ultimately need sarina Psych admit -discusing with Psych on dialy basis # prolonged QTC--509, repeat ECG but may prove very difficult due to agitated state # HTN, high d/t agitation, but better this morning continue metoprolol, Norvasc increased to 10 # HLD -statin # chronic normocytic anemia -h/h above transfusion threshold #Hypoglycemia episodes, d/t low intake, ? meds, follow lfts DVT prophylaxis-Lovenox Full code- discussed with patient's son and healthcare proxy, Devonte Patient has EMA stating DNR DNI but son say he's not sure if that is valid and to keep her full code until further discussion Quality Stroke Does the patient have a stroke diagnosis?: No VTE Prior VTE?: No VTE Risk Level:: Medical - moderate - high VTE Device Contraindication: Treatment Not Indicated VTE Drug Contraindication: N/A - Med Ordered
--- NOTE | 2023-12-18 11:46 | MHC.SL.SWA ---
Speech Pathologist Impression: Risk of aspiration, oropharyngeal dysphagia Risk of Aspiration Due to: Neurological Condition Weak Voice Dysphasia Diet Status: No changes at this time Liquid Consistency and Strategies for Safe Swallow: Liquid Intake Recommendation: Thin Liquid Intake Strategies: Small Sips Solid Food Consistency: Dietary Recommendations: REGULAR solids w/ GROUND MEAT Additional Modifications to Solid Foods: Continue on REGULAR texture diet to provide pt with more menu options, including soft & moistened breads (i.e. bread dipped in soup), soft noodles, soups. SPECIAL NEEDS NANNY spoke w/ kitchen staff who recommended regular solids w/ ground meats 12/16. Pt is recommended direct supervision and close monitoring during meals, assist with cutting of food, opening of containers, ensuring utensils and food items are easily accessible to the pt. Ensure upright position. Alternate liquids & solids and check oral cavity for clearance. SPECIAL NEEDS NANNY will continue to follow to monitor pt's tolerance of PO. Oral Medication Intake: Whole with Liquid Please contact the pharmacy regarding appropriate crushable or liquid drug formulations that are available whenever modified delivery is recommended. Compensatory Strategies and Precautions to be Taken for Safe Swallow: Sitting Upright (90 deg) Small Bites and Sips Alternate Liquids/Solids Oral Check Avoid Specific Foods Supervision While Eating and Drinking for Safe Swallow: Total Supervision (1:1) Foods to Avoid: Avoid hard, sticky, tough to chew foods Swallowing Recommended Treatments: Compens. Strategy Educat. Recommendation for Speech: Inpatient Speech Therapy Humanities Teacher Clinican/Clinical Fellow: No Supervisory Statement: I have reviewed and agree with the student/clinical fellow's documentation: N/A Speech Language Pathologist: Cherelle Lopez M.A., [facility]-SPECIAL NEEDS NANNY
[2023-12-18 14:26] LABS: Glucose, Whole Blood 120 mg/dL (60-115)
--- NOTE | 2023-12-18 15:42 | MHC.CM.PN ---
EMR reviewed and per MD rounds, pt is not medically cleared for D/C, psych following, may need inpatient psych placement. CM will continue to follow.
[2023-12-18 16:19] LABS: Glucose, Whole Blood 101 mg/dL (60-115)
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
[2023-12-18 18:26] LABS: Glucose, Whole Blood 87 mg/dL (60-115)
[2023-12-18] MEDS: Enoxaparin Sodium 40 MG/0.4 ML SYRINGE SUBCUT (19:41)
[2023-12-18] MEDS: Atorvastatin Calcium 20 MG TABLET PO (19:41)
[2023-12-18 23:52] LABS: Glucose, Whole Blood 107 mg/dL (60-115)
--- NOTE | 2023-12-19 | EEG_ITS ---
FINDINGS: Waking background activity consists of low voltage fast frequencies seen diffusely intermixed with an abundance of electrode and muscle artifact because the patient was confused and poorly cooperative and restless. Throughout the record, moderate voltage 6 to 6.5 Hz theta developed over both hemispheres, probably related to drowsiness. Photic stimulation is without activation. Hyperventilation was omitted. No paroxysmal discharge is seen. IMPRESSION: This is a limited EEG due to restlessness with an abundance of electrode and muscle artifacts. The patient is drowsy through most of the record. No paroxysmal features are seen. MD OBINNA Driver/[place] / [id number]
--- NOTE | 2023-12-19 | ECG_ITS ---
Test Reason : CHECK QTC Blood Pressure : / mmHG Vent. Rate : 072 BPM Atrial Rate : 072 BPM P-R Int : 146 ms QRS Dur : 126 ms QT Int : 426 ms P-R-T Axes : 042 -39 095 degrees QTc Int : 466 ms Sinus rhythm with Premature atrial complexes Left axis deviation Left bundle branch block Abnormal ECG When compared with ECG of 14-DEC-2023 13:31, Premature atrial complexes are now Present Referred By: Denis Cox Electronically Signed By:MYRNA LR
[2023-12-19] MEDS: 0.9 % Sodium Chloride Flush 3 ML SYRINGE IVFLUSH ×3 (00:17→16:23)
[2023-12-19 03:40] VITALS: BP 120/69; PULSE 66; RESP 16; TEMP 36.9; O2SAT 94
[2023-12-19] MEDS: Valproic Acid (as Sodium Salt) 500 MG in Dextrose 5 % 50 ML 55 MG IV ×2 (04:43→16:19)
[2023-12-19 06:27] LABS: Glucose, Whole Blood 76 mg/dL (60-115)
[2023-12-19 07:35] VITALS: BP 133/60; PULSE 67; RESP 20; TEMP 36.6; O2SAT 97
[2023-12-19 08:24] LABS: Hematocrit 32.1 % (37.0-47.0); Hemoglobin 10.5 g/dl (12.0-16.0); Mean Corpuscular HGB Conc 32.7 g/dl (31.0-35.0); Mean Corpuscular Hemoglobin 28.8 pg (27.0-33.0); Mean Corpuscular Volume 88.2 fL (80.0-98.0); Mean Platelet Volume 10.2 fL (9.4-12.3); Platelet Count 323 X10*3/uL (160-400); Red Blood Count 3.64 X10*6/uL (4.20-5.50); Red Cell Distribution Width 13.3 % (11.0-16.0); White Blood Count 6.7 X10*3/uL (4.8-10.8)
--- NOTE | 2023-12-19 08:25 | P.PNIM_ITS ---
Subjective Subjective Date of Service: 12/19/23 Interval History: f/u on delirium, decompensated bipolar, seemingly better this morning, allowed blood draw and took meds yesterday, less desorganized thought Physical Exam 2 Vital Signs: Vital Signs: Last Vital Signs Temp 97.9 F 12/19/23 07:35 Pulse 67 12/19/23 07:35 Resp 20 12/19/23 07:35 BP 133/60 12/19/23 07:35 Pulse Ox 97 12/19/23 07:35 O2 Del Method Room Air 12/19/23 07:35 O2 Flow Rate 9 12/14/23 20:50 BMI result Body Mass Index 26.3 Const: Other: General: Alert, no agitation, less desorganized thought Resp: CTA bilateral CVS: S1,S2,RRR GI: +BS, NT, no distention Skin: No rash Neuro: motor grossly intact Psych: appropriate affect Objective Data Active Medications Acetaminophen (Acetaminophen 325 Mg Tablet) 650 mg PO Q6H PRN PRN Reason: Pain, Mild (Pain Scale 1-3) Amlodipine Besylate (Amlodipine Besylate 10 Mg Tablet) 10 mg PO DAILY [facility]; Protocol Last Admin: 12/18/23 09:45 Dose: 10 mg Documented By: SHAKIRA Aripiprazole (Aripiprazole 5 Mg Tablet) 5 mg PO DAILY [facility] Last Admin: 12/18/23 09:44 Dose: 5 mg Documented By: SHAKIRA Atorvastatin Calcium (Atorvastatin Calcium 20 Mg Tablet) 20 mg PO BEDTIME [facility] Last Admin: 12/18/23 19:41 Dose: 20 mg Documented By: PARTH Benztropine Mesylate (Benztropine Mesylate 0.5 Mg Tablet) 0.5 mg PO DAILY [facility] Last Admin: 12/18/23 09:45 Dose: 0.5 mg Documented By: SHAKIRA Dextrose (Dextrose 50 % 25 Gm/50 Ml Syringe) 25 gm IVPUSH Q15M PRN; Protocol PRN Reason: per Hypoglycemia Standing Ord. Last Admin: 12/18/23 03:07 Dose: 25 gm Documented By: ARIEL Diazepam (Diazepam 10 Mg/2 Ml Cartridge) 2.5 mg IVPUSH Q12H PRN PRN Reason: anxiety/restlessness Last Admin: 12/17/23 05:21 Dose: 2.5 mg Documented By: HO.ANTOIC Comments: pt restless, swinging legs over railing Duloxetine HCl (Duloxetine Hcl 60 Mg Capsule.) 60 mg PO DAILY [facility] Last Admin: 12/18/23 09:45 Dose: 60 mg Documented By: SHAKIRA Enoxaparin Sodium (Enoxaparin Sodium 40 Mg/0.4 Ml Syringe) 40 mg SUBCUT Q24H [facility] Last Admin: 12/18/23 19:41 Dose: 40 mg Documented By: PARTH Fluphenazine Decanoate (Fluphenazine Decanoate 25 Mg/Ml 5 Ml Vial) 25 mg IM Q28D [facility] Glucose (Glucose Gel 15 Gm Gel..Gram.) 15 gm PO Q15M PRN; Protocol PRN Reason: per Hypoglycemia Standing Ord. Hydralazine HCl (Hydralazine Hcl 20 Mg/Ml Vial) 5 mg IVPUSH Q6H PRN; Protocol PRN Reason: for SBP > 180 Last Admin: 12/17/23 05:20 Dose: 5 mg Documented By: LUIS Comments: BP 181/78 Valproic Acid 500 mg/ Dextrose 55 mls @ 55 mls/hr IV Q12H [facility] Last Infusion: 12/19/23 05:50 Dose: Infused Documented By: SIM Metoprolol Tartrate (Metoprolol Tartrate 50 Mg Tablet) 50 mg PO BID [facility]; Protocol Last Admin: 12/18/23 19:41 Dose: 50 mg Documented By: PARTH Multivitamins/Vitamin C (Multivitamin Tablet) 1 tab PO DAILY [facility] Last Admin: 12/18/23 09:44 Dose: 1 tab Documented By: SHAKIRA Senna (Sennosides 8.6 Mg Tablet) 17.2 mg PO BEDTIME PRN PRN Reason: Constipation Sodium Chloride (0.9 % Sodium Chloride Flush 3 Ml Syringe) 3 ml IVFLUSH QSHIFT [facility] Last Admin: 12/19/23 00:17 Dose: 3 ml Documented By: SIM Trazodone HCl (Trazodone Hcl 50 Mg Tablet) 50 mg PO BEDTIME PRN PRN Reason: Insomnia Vitamin E (Vitamin E (Dl,Tocopheryl Acet) 180 Mg (400 Unit) Capsule) 180 mg PO DAILY [facility] Last Admin: 12/18/23 09:44 Dose: 180 mg Documented By: SHAKIRA Labs 12/19/23 08:11 12/15/23 05:42 Labs: Laboratory Results - last 24 hr 12/18/23 12/18/23 12/18/23 08:47 14:23 16:14 MCV MCH MCHC RDW Plt Count MPV Absolute Nucleated RBC Nucleated RBC % (auto) POC Glucose 87 120 H 101 12/18/23 12/18/23 12/19/23 18:22 23:48 06:24 MCV MCH MCHC RDW Plt Count MPV Absolute Nucleated RBC Nucleated RBC % (auto) POC Glucose 87 107 76 12/19/23 08:11 MCV 88.2 MCH 28.8 MCHC 32.7 RDW 13.3 Plt Count 323 MPV 10.2 Absolute Nucleated RBC 0.000 Nucleated RBC % (auto) 0.0 POC Glucose Assessment and Plan (1) Bipolar disorder with severe esdras: Status: Acute (2) Generalized tonic-clonic seizure: Status: Acute Plan 83/F with bipolar disorder, HTN, HLD, hyperlipidemia admitted for new seizure and decompensaed bipolar # new onset seizure d/t Psych med withdrawal -enable to do eeg or mri d/t agitation and lakc of [facility], initially given keppra and more seizure, mri and eeg when possible -Keppra changed to Depakote for concomitant treatment of bipolar, ammonia and depakote level in a week -Valium PRN for anxiety -psych following # decompensated bipolar disorder d/t non compliance -med per direction of Psych and brandy ultimately need sraina Psych admit -discusing with Psych on dialy basis # prolonged QTC--509, repeat ECG but may prove very difficult due to agitated state # HTN, high d/t agitation, but better this morning continue metoprolol, Norvasc increased to 10 # HLD -statin # chronic normocytic anemia -h/h above transfusion threshold #Hypoglycemia episodes, d/t low intake, ? meds, resolved, follow lfts DVT prophylaxis-Lovenox Full code- discussed with patient's son and healthcare proxy, Devonte Patient has MOL stating DNR DNI but son say he's not sure if that is valid and to keep her full code until further discussion Out of bed to chair and or ambulate, discussed with internet merchant Stroke Does the patient have a stroke diagnosis?: No VTE Prior VTE?: No VTE Risk Level:: Medical - moderate - high VTE Device Contraindication: Treatment Not Indicated VTE Drug Contraindication: N/A - Med Ordered
[2023-12-19] MEDS: Vitamin E (Dl,Tocopheryl Acet) 180 MG (400 UNIT) CAPSULE PO (08:44)
[2023-12-19 08:52] LABS: Alanine Aminotransferase 10 U/L (0-31); Albumin Level 2.9 g/dL (3.5-5.0); Alkaline Phosphatase 54 U/L (39-117); Anion Gap 11 (12-20); Aspartate Amino Transferase 12 U/L (5-31); Bilirubin Direct < 0.2 mg/dL (0.0-0.5); Bilirubin Total 0.2 mg/dL (0.0-1.0); Blood Urea Nitrogen 8 mg/dL (9-16); Calcium 8.4 mg/dL (8.4-10.2); Carbon Dioxide 25 mmol/L (22-29); Chloride 107 mmol/L (96-108); Creatinine Clr Calc Pharmacy 46.8; Estimated Glomerular Filt Rate > 60; Glucose Random 81 mg/dL (60-115); Potassium 4.4 mmol/L (3.3-5.1); Sodium 139 mmol/L (135-145); Total Protein 5.8 g/dL (6.5-8.0)
[2023-12-19 11:46] VITALS: BP 142/67; PULSE 70; RESP 16; TEMP 36.4; O2SAT 94
[2023-12-19 12:00] LABS: Glucose, Whole Blood 100 mg/dL (60-115)
[2023-12-19] MEDS: Metoprolol Tartrate 50 MG TABLET PO ×2 (12:18→21:07)
[2023-12-19] MEDS: amLODIPine Besylate 10 MG TABLET PO (13:54)
[2023-12-19 15:32] VITALS: BP 151/58; PULSE 66; RESP 20; TEMP 36.4; O2SAT 98
--- NOTE | 2023-12-19 17:39 | PC.NURSE ---
Assumed care of patient 0700 Pt noncompiant with taking medications PO with first med pass. Per son pt takes meds one at a time approximately Q15min. Pt able to speak but attempting to communicate needs nonverbally with hand motions. Pt speaks when frustrated. Speech clear. Pt given meds one at a time. Pt took blood pressure medications, refused psych medications. Pt cooperative with placement of new US guided IV to right FA and new EKG. QTc 466. Pt refused getting OOB to chair when offered 2x, shows mild anxiety with transitions and new staff. Pt pleasant but refuses care at times. high fall precautions in place, avasys camera in room.
[2023-12-19 18:18] LABS: Glucose, Whole Blood 82 mg/dL (60-115)
[2023-12-19 19:39] VITALS: BP 151/69; PULSE 67; RESP 18; TEMP 36.6; O2SAT 98
[2023-12-19] MEDS: Atorvastatin Calcium 20 MG TABLET PO (21:07)
--- NOTE | 2023-12-19 21:29 | PC.NURSE ---
Pt has scheduled Lovenox. Alert and oriented x4. Son at bedside. Pt refusing lovenox, saying she will do it tomorrow. This nurse stated to patient the risks of immobility for venous stasis and possible implications. Pt states she understands the risks, and firmy, clearly stated I do not want to. Pt educated to perform active range of motion of joints/muscles in bed. Call barroso in reach. Plan of care continues
[2023-12-20] VITALS (7 sets, daily range): BP systolic 160–178; BP diastolic 70–76; PULSE 55–70; RESP 18–20; TEMP 36.3–37.4; O2SAT 95–98
[2023-12-20 01:10] LABS: Glucose, Whole Blood 78 mg/dL (60-115)
[2023-12-20] MEDS: Valproic Acid (as Sodium Salt) 500 MG in Dextrose 5 % 50 ML 55 MG IV ×2 (03:51→15:36)
[2023-12-20 06:36] LABS: Glucose, Whole Blood 69 mg/dL (60-115)
--- NOTE | 2023-12-20 08:35 | HO.PM.IMPN ---
Subjective Subjective Date of Service: 12/20/23 Interval History: f/u on delirium, decompensated bipolar, no more agitation, but remains confused with desorganized thought and refusing care at times Physical Exam Vital Signs: Vital Signs: Last Vital Signs Temp 97.3 F 12/20/23 08:00 Pulse 62 12/20/23 08:00 Resp 18 12/20/23 08:00 BP 160/76 H 12/20/23 08:00 Pulse Ox 98 12/20/23 08:00 O2 Del Method Room Air 12/20/23 08:00 O2 Flow Rate 9 12/14/23 20:50 BMI result Body Mass Index 26.3 Const: Other: General: Alert, no agitation, desorganized thought process Resp: CTA bilateral CVS: S1,S2,RRR GI: +BS, NT, no distention Skin: No rash Neuro: motor grossly intact Psych: appropriate affect Objective Data Active Medications Acetaminophen (Acetaminophen 325 Mg Tablet) 650 mg PO Q6H PRN PRN Reason: Pain, Mild (Pain Scale 1-3) Amlodipine Besylate (Amlodipine Besylate 10 Mg Tablet) 10 mg PO DAILY [facility]; Protocol Last Admin: 12/19/23 13:54 Dose: 10 mg Documented By: HIMA Aripiprazole (Aripiprazole 5 Mg Tablet) 5 mg PO DAILY [facility] Last Admin: 12/19/23 16:35 Dose: Not Given Documented By: HIMA Non-Admin Reason: Patient Refused Atorvastatin Calcium (Atorvastatin Calcium 20 Mg Tablet) 20 mg PO BEDTIME [facility] Last Admin: 12/19/23 21:07 Dose: 20 mg Documented By: LIANG Benztropine Mesylate (Benztropine Mesylate 0.5 Mg Tablet) 0.5 mg PO DAILY [facility] Last Admin: 12/19/23 16:35 Dose: Not Given Documented By: HIMA Non-Admin Reason: Patient Refused Dextrose (Dextrose 50 % 25 Gm/50 Ml Syringe) 25 gm IVPUSH Q15M PRN; Protocol PRN Reason: per Hypoglycemia Standing Ord. Last Admin: 12/18/23 03:07 Dose: 25 gm Documented By: ARIEL Diazepam (Diazepam 10 Mg/2 Ml Cartridge) 2.5 mg IVPUSH Q12H PRN PRN Reason: anxiety/restlessness Last Admin: 12/17/23 05:21 Dose: 2.5 mg Documented By: LUIS Comments: pt restless, swinging legs over railing Duloxetine HCl (Duloxetine Hcl 60 Mg Capsule.Dr) 60 mg PO DAILY [facility] Last Admin: 12/19/23 16:35 Dose: Not Given Documented By: HIMA Non-Admin Reason: Patient Refused Enoxaparin Sodium (Enoxaparin Sodium 40 Mg/0.4 Ml Syringe) 40 mg SUBCUT Q24H [facility] Last Admin: 12/19/23 23:18 Dose: Not Given Documented By: LIANG Non-Admin Reason: Patient Refused Comments: I sat with this patient for an extended period of time educating on DVTP and implications of inactivity/venous stasis. still refused. Fluphenazine Decanoate (Fluphenazine Decanoate 25 Mg/Ml 5 Ml Vial) 25 mg IM Q28D [facility] Glucose (Glucose Gel 15 Gm Gel..Gram.) 15 gm PO Q15M PRN; Protocol PRN Reason: per Hypoglycemia Standing Ord. Hydralazine HCl (Hydralazine Hcl 20 Mg/Ml Vial) 5 mg IVPUSH Q6H PRN; Protocol PRN Reason: for SBP > 180 Last Admin: 12/17/23 05:20 Dose: 5 mg Documented By: LUIS Comments: BP 181/78 Valproic Acid 500 mg/ Dextrose 55 mls @ 55 mls/hr IV Q12H [facility] Last Infusion: 12/20/23 05:05 Dose: Infused Documented By: LIANG Metoprolol Tartrate (Metoprolol Tartrate 50 Mg Tablet) 50 mg PO BID [facility]; Protocol Last Admin: 12/19/23 21:07 Dose: 50 mg Documented By: LIANG Multivitamins/Vitamin C (Multivitamin Tablet) 1 tab PO DAILY [facility] Last Admin: 12/19/23 16:35 Dose: Not Given Documented By: HIMA Non-Admin Reason: Patient Refused Senna (Sennosides 8.6 Mg Tablet) 17.2 mg PO BEDTIME PRN PRN Reason: Constipation Sodium Chloride (0.9 % Sodium Chloride Flush 3 Ml Syringe) 3 ml IVFLUSH QSHIFT [facility] Last Admin: 12/20/23 01:33 Dose: Not Given Documented By: LIANG Non-Admin Reason: Previously Administered Trazodone HCl (Trazodone Hcl 50 Mg Tablet) 50 mg PO BEDTIME PRN PRN Reason: Insomnia Vitamin E (Vitamin E (Dl,Tocopheryl Acet) 180 Mg (400 Unit) Capsule) 180 mg PO DAILY [facility] Last Admin: 12/19/23 08:44 Dose: 180 mg Documented By: HIMA Labs 12/19/23 08:11 12/19/23 08:11 Labs: Laboratory Results - last 24 hr 12/19/23 12/19/23 12/19/23 08:11 11:50 18:14 Anion Gap 11 L Estim Creat Clear Calc 46.8 Estimated GFR > 60 POC Glucose 100 82 Random Glucose 81 Calcium 8.4 Total Bilirubin 0.2 Direct Bilirubin < 0.2 AST 12 ALT 10 Alkaline Phosphatase 54 Total Protein 5.8 L Albumin 2.9 L 12/20/23 12/20/23 01:04 06:32 Anion Gap Estim Creat Clear Calc Estimated GFR POC Glucose 78 69 Random Glucose Calcium Total Bilirubin Direct Bilirubin AST ALT Alkaline Phosphatase Total Protein Albumin Assessment and Plan (1) Bipolar disorder with severe esdras: Status: Acute (2) Generalized tonic-clonic seizure: Status: Acute Plan 83/ with bipolar disorder, HTN, HLD, hyperlipidemia admitted for new seizure and decompensaed bipolar # new onset seizure d/t Psych med withdrawal -no eeg or mri d/t agitation and [facility], initially given keppra, no further seizures, mri and eeg when possible -Keppra changed to Depakote for concomitant treatment of bipolar, ammonia and depakote level in a week -Valium PRN for anxiety -psych following # decompensated bipolar disorder d/t non compliance -med per direction of Psych and will ultimately need [facility] admit -discusing with Psych on regular basis # prolonged QTC--509, resolved on repeat ecg # HTN, continue metoprolol, Norvasc increased to 10 # HLD -statin # chronic normocytic anemia -h/h above transfusion threshold #Hypoglycemia episodes, d/t low intake, ? meds, resolved, follow lfts DVT prophylaxis-Lovenox Full code- discussed with patient's son and healthcare proxy, Devonte Patient has MOLST stating DNR DNI but son say he's not sure if that is valid and to keep her full code until further discussion Out of bed to chair and or ambulate, Quality Stroke Does the patient have a stroke diagnosis?: No VTE Prior VTE?: No VTE Risk Level:: Medical - moderate - high VTE Device Contraindication: Treatment Not Indicated VTE Drug Contraindication: N/A - Med Ordered
[2023-12-20] MEDS: Metoprolol Tartrate 50 MG TABLET PO ×2 (09:13→20:25)
[2023-12-20] MEDS: amLODIPine Besylate 10 MG TABLET PO (09:14)
[2023-12-20] MEDS: ARIPiprazole 5 MG TABLET PO (09:14)
[2023-12-20] MEDS: Benztropine Mesylate 0.5 MG TABLET PO (09:14)
[2023-12-20] MEDS: Multivitamin TABLET 1 TAB PO (09:14)
[2023-12-20] MEDS: DULoxetine HCl 60 MG CAPSULE.DR PO (09:14)
[2023-12-20] MEDS: 0.9 % Sodium Chloride Flush 3 ML SYRINGE IVFLUSH ×3 (09:16→20:26)
[2023-12-20] MEDS: Vitamin E (Dl,Tocopheryl Acet) 180 MG (400 UNIT) CAPSULE PO (09:17)
[2023-12-20 11:42] LABS: Glucose, Whole Blood 110 mg/dL (60-115)
[2023-12-20 18:22] LABS: Glucose, Whole Blood 82 mg/dL (60-115)
[2023-12-20] MEDS: Atorvastatin Calcium 20 MG TABLET PO (20:25)
[2023-12-21 00:16] LABS: Glucose, Whole Blood 88 mg/dL (60-115)
[2023-12-21 03:16] VITALS: BP 153/67; PULSE 56; RESP 18; TEMP 36.8; O2SAT 96
[2023-12-21] MEDS: Valproic Acid (as Sodium Salt) 500 MG in Dextrose 5 % 50 ML 55 MG IV ×2 (03:21→15:39)
[2023-12-21 07:30] VITALS: BP 137/79; PULSE 61; RESP 18; TEMP 36.6; O2SAT 98
[2023-12-21] MEDS: Vitamin E (Dl,Tocopheryl Acet) 180 MG (400 UNIT) CAPSULE PO (09:32)
[2023-12-21] MEDS: Multivitamin TABLET 1 TAB PO (09:32)
[2023-12-21] MEDS: Benztropine Mesylate 0.5 MG TABLET PO (09:32)
[2023-12-21] MEDS: 0.9 % Sodium Chloride Flush 3 ML SYRINGE IVFLUSH ×3 (09:32→20:03)
[2023-12-21] MEDS: amLODIPine Besylate 10 MG TABLET PO (09:32)
[2023-12-21] MEDS: DULoxetine HCl 60 MG CAPSULE.DR PO (09:32)
[2023-12-21] MEDS: ARIPiprazole 5 MG TABLET PO (09:32)
[2023-12-21] MEDS: Metoprolol Tartrate 50 MG TABLET PO ×2 (09:32→20:02)
--- NOTE | 2023-12-21 10:29 | P.PNIM_ITS ---
Subjective Subjective Date of Service: 12/21/23 Interval History: f/u on delirium, decompensated bipolar, patient is better, was able to tell me where she is at, name, date. She is still not taking meds, except from the son Physical Exam 2 Vital Signs: Vital Signs: Last Vital Signs Temp 97.9 F 12/21/23 07:30 Pulse 61 12/21/23 07:30 Resp 18 12/21/23 07:30 BP 137/79 12/21/23 07:30 Pulse Ox 98 12/21/23 07:30 O2 Del Method Room Air 12/21/23 07:30 O2 Flow Rate 9 12/14/23 20:50 BMI result Body Mass Index 26.3 General: AO X 3, no acute distress, still with some level of desorganization Resp: CTA bilateral CVS: S1,S2,RRR GI: +BS, NT, no distention Skin: No rash Neuro: motor grossly intact Psych: appropriate affect Const: Other: General: Alert, no agitation, desorganized thought process Resp: CTA bilateral CVS: S1,S2,RRR GI: +BS, NT, no distention Skin: No rash Neuro: motor grossly intact Psych: appropriate affect Objective Data Active Medications Acetaminophen (Acetaminophen 325 Mg Tablet) 650 mg PO Q6H PRN PRN Reason: Pain, Mild (Pain Scale 1-3) Amlodipine Besylate (Amlodipine Besylate 10 Mg Tablet) 10 mg PO DAILY [facility]; Protocol Last Admin: 12/21/23 09:32 Dose: 10 mg Documented By: ERICA Aripiprazole (Aripiprazole 5 Mg Tablet) 5 mg PO DAILY [facility] Last Admin: 12/21/23 09:32 Dose: 5 mg Documented By: ERICA Atorvastatin Calcium (Atorvastatin Calcium 20 Mg Tablet) 20 mg PO BEDTIME [facility] Last Admin: 12/20/23 20:25 Dose: 20 mg Documented By: ELIANE Benztropine Mesylate (Benztropine Mesylate 0.5 Mg Tablet) 0.5 mg PO DAILY [facility] Last Admin: 12/21/23 09:32 Dose: 0.5 mg Documented By: ERICA Dextrose (Dextrose 50 % 25 Gm/50 Ml Syringe) 25 gm IVPUSH Q15M PRN; Protocol PRN Reason: per Hypoglycemia Standing Ord. Last Admin: 12/18/23 03:07 Dose: 25 gm Documented By: ARIEL Diazepam (Diazepam 10 Mg/2 Ml Cartridge) 2.5 mg IVPUSH Q12H PRN PRN Reason: anxiety/restlessness Last Admin: 12/17/23 05:21 Dose: 2.5 mg Documented By: LUIS Comments: pt restless, swinging legs over railing Duloxetine HCl (Duloxetine Hcl 60 Mg Capsule.Dr) 60 mg PO DAILY [facility] Last Admin: 12/21/23 09:32 Dose: 60 mg Documented By: ERICA Enoxaparin Sodium (Enoxaparin Sodium 40 Mg/0.4 Ml Syringe) 40 mg SUBCUT Q24H [facility] Last Admin: 12/20/23 22:08 Dose: Not Given Documented By: ELIANE Non-Admin Reason: Patient Refused Fluphenazine Decanoate (Fluphenazine Decanoate 25 Mg/Ml 5 Ml Vial) 25 mg IM Q28D [facility] Glucose (Glucose Gel 15 Gm Gel..Gram.) 15 gm PO Q15M PRN; Protocol PRN Reason: per Hypoglycemia Standing Ord. Hydralazine HCl (Hydralazine Hcl 20 Mg/Ml Vial) 5 mg IVPUSH Q6H PRN; Protocol PRN Reason: for SBP > 180 Last Admin: 12/17/23 05:20 Dose: 5 mg Documented By: LUIS Comments: BP 181/78 Valproic Acid 500 mg/ Dextrose 55 mls @ 55 mls/hr IV Q12H [facility] Last Infusion: 12/21/23 04:50 Dose: Infused Documented By: ELIANE Metoprolol Tartrate (Metoprolol Tartrate 50 Mg Tablet) 50 mg PO BID [facility]; Protocol Last Admin: 12/21/23 09:32 Dose: 50 mg Documented By: ERICA Multivitamins/Vitamin C (Multivitamin Tablet) 1 tab PO DAILY [facility] Last Admin: 12/21/23 09:32 Dose: 1 tab Documented By: ERICA Senna (Sennosides 8.6 Mg Tablet) 17.2 mg PO BEDTIME PRN PRN Reason: Constipation Sodium Chloride (0.9 % Sodium Chloride Flush 3 Ml Syringe) 3 ml IVFLUSH QSHIFT [facility] Last Admin: 12/21/23 09:32 Dose: 3 ml Documented By: ERICA Trazodone HCl (Trazodone Hcl 50 Mg Tablet) 50 mg PO BEDTIME PRN PRN Reason: Insomnia Vitamin E (Vitamin E (Dl,Tocopheryl Acet) 180 Mg (400 Unit) Capsule) 180 mg PO DAILY [facility] Last Admin: 12/21/23 09:32 Dose: 180 mg Documented By: ERICA Labs 12/19/23 08:11 12/19/23 08:11 Labs: Laboratory Results - last 24 hr 12/20/23 12/20/23 12/20/23 11:38 18:06 23:59 POC Glucose 110 82 88 Assessment and Plan (1) Bipolar disorder with severe esdras: Status: Acute (2) Generalized tonic-clonic seizure: Status: Acute Plan 83/F with bipolar disorder, HTN, HLD, hyperlipidemia admitted for new seizure and decompensaed bipolar # new onset seizure d/t Psych med withdrawal -no eeg or mri d/t agitation and lack of cooperation, initially given keppra, no further seizures, mri and eeg when possible -Keppra changed to Depakote for concomitant treatment of bipolar, ammonia and depakote level tomorrow -Valium PRN for anxiety -psych following, should be assess for Psych admission today #decompensated bipolar disorder d/t non compliance -med per direction of Psych and will ultimately need [facility] admit -discussing with Psych on regular basis # prolonged QTC--509, resolved on repeat ecg # HTN, continue metoprolol, Norvasc increased to 10 # HLD -statin # chronic normocytic anemia -h/h above transfusion threshold #Hypoglycemia episodes, d/t low intake, ? meds, resolved, follow lfts DVT prophylaxis-Lovenox Full code- discussed with patient's son and healthcare proxy, Devonte Patient has EMA stating DNR DN, HCP wants full code, and health care proxy has been invoked Out of bed, ambulate Quality Stroke Does the patient have a stroke diagnosis?: No VTE Prior VTE?: No VTE Risk Level:: Medical - moderate - high VTE Device Contraindication: Treatment Not Indicated VTE Drug Contraindication: N/A - Med Ordered
[2023-12-21 10:58] LABS: Glucose, Whole Blood 82 mg/dL (60-115)
[2023-12-21 11:04] VITALS: BP 183/78; PULSE 70; RESP 20; TEMP 36.9; O2SAT 95
--- NOTE | 2023-12-21 12:12 | MHC.CM.PN ---
EMR reviewed and per MD rounds, pt is medically cleared for D/C, awaiting [facility] placement. CM will continue to follow.
--- NOTE | 2023-12-21 12:38 | MHC.SL.SWA ---
Speech Pathologist Impression: Risk of aspiration, oropharyngeal dysphagia Risk of Aspiration Due to: Neurological Condition Weak Voice Dysphasia Diet Status: No changes at this time Liquid Consistency and Strategies for Safe Swallow: Liquid Intake Recommendation: Thin Liquid Intake Strategies: Small Sips Solid Food Consistency: Dietary Recommendations: REGULAR solids w/ GROUND MEAT Additional Modifications to Solid Foods: Continue on REGULAR texture diet to provide pt with more menu options, including soft & moistened breads (i.e. bread dipped in soup), soft noodles, soups. PICKLING OPERATOR spoke w/ kitchen staff who recommended regular solids w/ ground meats 12/16. Pt is recommended direct supervision and close monitoring during meals, assist with cutting of food, opening of containers, ensuring utensils and food items are easily accessible to the pt. Ensure upright position. Alternate liquids & solids and check oral cavity for clearance. Oral Medication Intake: Whole with Liquid Please contact the pharmacy regarding appropriate crushable or liquid drug formulations that are available whenever modified delivery is recommended. Compensatory Strategies and Precautions to be Taken for Safe Swallow: Sitting Upright (90 deg) Small Bites and Sips Alternate Liquids/Solids Rate of Ingestion Change Oral Check Avoid Specific Foods Supervision While Eating and Drinking for Safe Swallow: Total Supervision (1:1) Foods to Avoid: Avoid hard, sticky, tough to chew foods Swallowing Recommended Treatments: Compens. Strategy Educat. Recommendation for Speech: 1 f/u Sedimentationist Clinican/Clinical Fellow: No Supervisory Statement: I have reviewed and agree with the student/clinical fellow's documentation: N/A Speech Language Pathologist: Cherelle Lopez M.A., CCC-PICKLING OPERATOR
[2023-12-21] MEDS: fluPHENAZine decanoate 25 MG/ML 5 ML VIAL IM (14:26)
[2023-12-21 15:01] VITALS: BP 136/79; PULSE 68; RESP 20; TEMP 36.6; O2SAT 95
[2023-12-21 17:21] LABS: Glucose, Whole Blood 91 mg/dL (60-115)
--- NOTE | 2023-12-21 18:22 | P.CNPS_ITS ---
History of Present Illness Date of Service: 12/21/2023 Chief Complaint: new onset seizures Requesting physician: Denis Cox Discussed with referring provider: Yes Sources of Information: patient interviewed, chart reviewed and crisis/core team assessment reviewed HPI Narrative: Interim Hx: pt has gradually accepted taking oral medications. She reports she refused to take medications at home because she suspects her was trying to kill her. She is less suspicious about her medications, but still not convince she needs them. She is somewhat irritable with staff, yelling at nurses at times. She reports she is being treated better here than at the other hospital, referring to the psych unit admission prior to being transferred to [facility] ED due to new onset seizure. She did accept NOLEN prolixin today. She also took oral medications today. Past Psychiatric History: Inpt: 4 in the past unclear when last admission was and where OP: [facility] Past med trials: fluphenazine, abilify, carbamazepine, cymbalta [facility] Medical History HLD (hyperlipidemia) H/O: HTN (hypertension) Bipolar disorder Diagnostics Vital Signs (24Hr): Vital Signs - 24 hr 12/20/23 20:00 12/20/23 23:57 12/21/23 03:16 Temperature 98.2 F 98.1 F 98.3 F Pulse Rate 70 59 56 Respiratory Rate 18 18 18 Blood Pressure 164/70 H 176/76 H 153/67 H Pulse Oximetry 95 97 96 Oxygen Delivery Method Room Air Room Air Room Air 12/21/23 07:30 12/21/23 11:04 12/21/23 15:01 Temperature 97.9 F 98.4 F 97.8 F Pulse Rate 61 70 68 Respiratory Rate 18 20 20 Blood Pressure 137/79 183/78 H 136/79 Pulse Oximetry 98 95 95 Oxygen Delivery Method Room Air Room Air Room Air BMI result Body Mass Index 26.3 Labs 12/19/23 08:11 12/19/23 08:11 Labs: Laboratory Results - last 48 hr 12/20/23 12/20/23 12/20/23 01:04 06:32 11:38 POC Glucose 78 69 110 12/20/23 12/20/23 12/21/23 18:06 23:59 10:47 POC Glucose 82 88 82 12/21/23 17:14 POC Glucose 91 Imaging Radiology Impressions: ITS Impressions Head CT 12/14/23 15:50 IMPRESSION: No acute intracranial pathology. Mental Status Exam Mental Status Exam Narrative: Appearance: wearing hospital gown, fair hygiene, in NAD Behavior: overly friendly Speech: more clear, less hyperverbal, regular tone, spontaneous TP: disorganized, slightly more coherent Affect: expansive, AH/VH: appears internally preoccupied, Delusions: some suspiciousness about medications, more disinhibited Insight/judgment: impaired x 2 Medications Medications Current Medications Acetaminophen (Acetaminophen 325 Mg Tablet) 650 mg PO Q6H PRN PRN Reason: Pain, Mild (Pain Scale 1-3) Amlodipine Besylate (Amlodipine Besylate 10 Mg Tablet) 10 mg PO DAILY [facility]; Protocol Last Admin: 12/21/23 09:32 Dose: 10 mg Aripiprazole (Aripiprazole 5 Mg Tablet) 5 mg PO DAILY [facility] Last Admin: 12/21/23 09:32 Dose: 5 mg Atorvastatin Calcium (Atorvastatin Calcium 20 Mg Tablet) 20 mg PO BEDTIME [facility] Last Admin: 12/20/23 20:25 Dose: 20 mg Benztropine Mesylate (Benztropine Mesylate 0.5 Mg Tablet) 0.5 mg PO DAILY [facility] Last Admin: 12/21/23 09:32 Dose: 0.5 mg Dextrose (Dextrose 50 % 25 Gm/50 Ml Syringe) 25 gm IVPUSH Q15M PRN; Protocol PRN Reason: per Hypoglycemia Standing Ord. Last Admin: 12/18/23 03:07 Dose: 25 gm Diazepam (Diazepam 10 Mg/2 Ml Cartridge) 2.5 mg IVPUSH Q12H PRN PRN Reason: anxiety/restlessness Last Admin: 12/17/23 05:21 Dose: 2.5 mg Duloxetine HCl (Duloxetine Hcl 60 Mg Capsule.Dr) 60 mg PO DAILY [facility] Last Admin: 12/21/23 09:32 Dose: 60 mg Enoxaparin Sodium (Enoxaparin Sodium 40 Mg/0.4 Ml Syringe) 40 mg SUBCUT Q24H [facility] Last Admin: 12/20/23 22:08 Dose: Not Given Fluphenazine Decanoate (Fluphenazine Decanoate 25 Mg/Ml 5 Ml Vial) 25 mg IM Q28D [facility] Last Admin: 12/21/23 14:26 Dose: 25 mg Glucose (Glucose Gel 15 Gm Gel..Gram.) 15 gm PO Q15M PRN; Protocol PRN Reason: per Hypoglycemia Standing Ord. Hydralazine HCl (Hydralazine Hcl 20 Mg/Ml Vial) 5 mg IVPUSH Q6H PRN; Protocol PRN Reason: for SBP > 180 Last Admin: 12/17/23 05:20 Dose: 5 mg Valproic Acid 500 mg/ Dextrose 55 mls @ 55 mls/hr IV Q12H [facility] Last Infusion: 12/21/23 16:51 Dose: Infused Metoprolol Tartrate (Metoprolol Tartrate 50 Mg Tablet) 50 mg PO BID [facility]; Protocol Last Admin: 12/21/23 09:32 Dose: 50 mg Multivitamins/Vitamin C (Multivitamin Tablet) 1 tab PO DAILY [facility] Last Admin: 12/21/23 09:32 Dose: 1 tab Senna (Sennosides 8.6 Mg Tablet) 17.2 mg PO BEDTIME PRN PRN Reason: Constipation Sodium Chloride (0.9 % Sodium Chloride Flush 3 Ml Syringe) 3 ml IVFLUSH QSHIFT [facility] Last Admin: 12/21/23 15:51 Dose: 3 ml Trazodone HCl (Trazodone Hcl 50 Mg Tablet) 50 mg PO BEDTIME PRN PRN Reason: Insomnia Vitamin E (Vitamin E (Dl,Tocopheryl Acet) 180 Mg (400 Unit) Capsule) 180 mg PO DAILY [facility] Last Admin: 12/21/23 09:32 Dose: 180 mg Allergies Allergies Allergy/AdvReac Type Severity Reaction Status Date / Time No Known Allergies Allergy Verified 12/14/23 12:31 Assessment & Plan Assessment & Plan (1) Bipolar disorder with severe esdras: Status: Acute Code(s): F31.13 - Bipolar disorder, current episode manic without psychotic features, severe (2) Generalized tonic-clonic seizure: Status: Acute Code(s): G40.409 - Other generalized epilepsy and epileptic syndromes, not intractable, without status epilepticus Plan Mrs. Bob is a 83 year-old woman with hx of Bipolar Disorder who was initially admitted to [facility] for psychiatric care. She had presented as paranoid about medications and being monitored, not talking, declining to take medications. She was transferred for evaluation of what appears to be tonic- clonic seizure (she does not have prior hx of seizures according to family). She continues to present with mutism, paranoia ideas, not accepting treatment. 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 She does have s/s of catatonia with underlying psychosis--> high potency antipsychotic like haldol may make it worse. pending collateral info from OP to gathered medication hx. PLAN 12/16/2023: Pt presents less mute, speech more intelligible, flirtatious behaviors and overly friendly. She continues to decline oral medications. Called outpatient psych provider at [facility] [phone], left with call back number. At this point will recommend starting depakote 500mg IV BID- awaiting collateral from outpatient since not clear if pt had been on this medication as mood stabilizer in the past or not. Check depakote level in 5-7 days with ammonia levels and LFTs. - if possible to change keppra to depakote for seizure coverage will be best to decrease polypharmacy AED. -Next Fluphenazine 25mg IM qmonthly due 12/26/23 - if need PRN can use diazepam 2.5mg IV BID prn if ineffective olanzapine 5mg po q6h prn agitation. Now, monitor Qtc<500ms (she does have LBBB- may need correction formula to calculate Qtc), Maintain K>4, Mg>2. 12/18/2023 pt slightly more organized in her thought process, less expansive mood. starting to accept some po medication with much encouraged but still tells this literary writer she does not think she needs then. She is due for Fluphenazine 25mg IM qmonthly on 12/26, but it can be given 5 days prior to due date, on 12/21/2023. continue depakote, will schedule depakote level on 12/22/2023 with ammonia levels 12/21 speech more organized, still some paranoia, no catatonia. More open to take medications, still somewhat labile. tomorrow will check depakote levels and ammonia.plan for admission to [facility]. Total time managing care of this patient today ____ minutes.
[2023-12-21 19:28] VITALS: BP 145/63; PULSE 65; RESP 18; TEMP 36.2; O2SAT 94
[2023-12-21] MEDS: Atorvastatin Calcium 20 MG TABLET PO (20:02)
[2023-12-22] VITALS: BP 149/66; PULSE 58; RESP 18; TEMP 36.8; O2SAT 94
[2023-12-22 00:51] LABS: Glucose, Whole Blood 126 mg/dL (60-115)
[2023-12-22 03:33] VITALS: BP 171/72; PULSE 60; RESP 18; TEMP 36.4; O2SAT 97
[2023-12-22] MEDS: Valproic Acid (as Sodium Salt) 500 MG in Dextrose 5 % 50 ML 55 MG IV (03:34)
[2023-12-22 05:56] LABS: Glucose, Whole Blood 74 mg/dL (60-115)
[2023-12-22 08:00] VITALS: BP 149/66; PULSE 66; RESP 16; TEMP 36.2; O2SAT 95
--- NOTE | 2023-12-22 09:25 | HO.PM.IMPN ---
Subjective Subjective Date of Service: 12/22/23 Interval History: She is making progress, less confused and thoughts are more organized Physical Exam Vital Signs: Vital Signs: Last Vital Signs Temp 97.2 F 12/22/23 08:00 Pulse 66 12/22/23 08:00 Resp 16 12/22/23 08:00 BP 149/66 H 12/22/23 08:00 Pulse Ox 95 12/22/23 08:00 O2 Del Method Room Air 12/22/23 08:00 O2 Flow Rate 9 12/14/23 20:50 BMI result Body Mass Index 26.3 General: AO X 3, no acute distress, still with some level of desorganization Resp: CTA bilateral CVS: S1,S2,RRR GI: +BS, NT, no distention Skin: No rash Neuro: motor grossly intact Psych: appropriate affect Objective Data Active Medications Acetaminophen (Acetaminophen 325 Mg Tablet) 650 mg PO Q6H PRN PRN Reason: Pain, Mild (Pain Scale 1-3) Amlodipine Besylate (Amlodipine Besylate 10 Mg Tablet) 10 mg PO DAILY [facility]; Protocol Last Admin: 12/21/23 09:32 Dose: 10 mg Documented By: ERICA Aripiprazole (Aripiprazole 5 Mg Tablet) 5 mg PO DAILY [facility] Last Admin: 12/21/23 09:32 Dose: 5 mg Documented By: ERICA Atorvastatin Calcium (Atorvastatin Calcium 20 Mg Tablet) 20 mg PO BEDTIME [facility] Last Admin: 12/21/23 20:02 Dose: 20 mg Documented By: ELIANE Benztropine Mesylate (Benztropine Mesylate 0.5 Mg Tablet) 0.5 mg PO DAILY [facility] Last Admin: 12/21/23 09:32 Dose: 0.5 mg Documented By: ERICA Dextrose (Dextrose 50 % 25 Gm/50 Ml Syringe) 25 gm IVPUSH Q15M PRN; Protocol PRN Reason: per Hypoglycemia Standing Ord. Last Admin: 12/18/23 03:07 Dose: 25 gm Documented By: ARIEL Diazepam (Diazepam 10 Mg/2 Ml Cartridge) 2.5 mg IVPUSH Q12H PRN PRN Reason: anxiety/restlessness Last Admin: 12/17/23 05:21 Dose: 2.5 mg Documented By: ANTOIC Comments: pt restless, swinging legs over railing Duloxetine HCl (Duloxetine Hcl 60 Mg Capsule.Dr) 60 mg PO DAILY [facility] Last Admin: 12/21/23 09:32 Dose: 60 mg Documented By: ERICA Enoxaparin Sodium (Enoxaparin Sodium 40 Mg/0.4 Ml Syringe) 40 mg SUBCUT Q24H [facility] Last Admin: 12/21/23 22:47 Dose: Not Given Documented By: ELIANE Non-Admin Reason: Patient Refused Fluphenazine Decanoate (Fluphenazine Decanoate 25 Mg/Ml 5 Ml Vial) 25 mg IM Q28D [facility] Last Admin: 12/21/23 14:26 Dose: 25 mg Documented By: ERICA Glucose (Glucose Gel 15 Gm Gel..Gram.) 15 gm PO Q15M PRN; Protocol PRN Reason: per Hypoglycemia Standing Ord. Hydralazine HCl (Hydralazine Hcl 20 Mg/Ml Vial) 5 mg IVPUSH Q6H PRN; Protocol PRN Reason: for SBP > 180 Last Admin: 12/17/23 05:20 Dose: 5 mg Documented By: LUIS Comments: BP 181/78 Valproic Acid 500 mg/ Dextrose 55 mls @ 55 mls/hr IV Q12H [facility] Last Infusion: 12/22/23 04:51 Dose: Infused Documented By: ELIANE Metoprolol Tartrate (Metoprolol Tartrate 50 Mg Tablet) 50 mg PO BID [facility]; Protocol Last Admin: 12/21/23 20:02 Dose: 50 mg Documented By: ELIANE Multivitamins/Vitamin C (Multivitamin Tablet) 1 tab PO DAILY [facility] Last Admin: 12/21/23 09:32 Dose: 1 tab Documented By: ERICA Senna (Sennosides 8.6 Mg Tablet) 17.2 mg PO BEDTIME PRN PRN Reason: Constipation Sodium Chloride (0.9 % Sodium Chloride Flush 3 Ml Syringe) 3 ml IVFLUSH QSHIFT [facility] Last Admin: 12/21/23 20:03 Dose: 3 ml Documented By: ELIANE Trazodone HCl (Trazodone Hcl 50 Mg Tablet) 50 mg PO BEDTIME PRN PRN Reason: Insomnia Vitamin E (Vitamin E (Dl,Tocopheryl Acet) 180 Mg (400 Unit) Capsule) 180 mg PO DAILY [facility] Last Admin: 12/21/23 09:32 Dose: 180 mg Documented By: ERICA Labs 12/19/23 08:11 12/19/23 08:11 Labs: Laboratory Results - last 24 hr 12/21/23 12/21/23 12/22/23 10:47 17:14 00:47 POC Glucose 82 91 126 H 12/22/23 05:53 POC Glucose 74 Assessment and Plan (1) Bipolar disorder with severe esdras: Status: Acute (2) Generalized tonic-clonic seizure: Status: Acute Plan 83/F with bipolar disorder, HTN, HLD, hyperlipidemia admitted for new seizure and decompensaed bipolar # new onset seizure d/t Psych med withdrawal -no eeg or mri d/t agitation and lack of cooperation, has not had any further seizure. Initially given keppra. I don't think EEG indicated anymore, MRI can be considered in the future -Keppra changed to Depakote for concomitant treatment of bipolar, ammonia and depakote level today -Valium PRN for anxiety -psych following, should be assess for Psych admission today #decompensated bipolar disorder d/t non compliance -med per direction of Psych and will ultimately need sarina Psych admit -discussing with Psych on regular basis -got monthly im Fluphenazine on 12/21 # prolonged QTC--509, resolved, repeat ECG 466 # HTN, continue metoprolol, Norvasc increased to 10 # HLD -statin # chronic normocytic anemia -h/h above transfusion threshold #Hypoglycemia episodes, d/t low intake, ? meds, resolved, follow lfts DVT prophylaxis-Lovenox Full code- discussed with patient's son and healthcare proxy, Devonte Patient has EMA stating DNR DN, HCP wants full code, and health care proxy has been invoked Out of bed, ambulate Quality Stroke Does the patient have a stroke diagnosis?: No VTE Prior VTE?: No VTE Risk Level:: Medical - moderate - high VTE Device Contraindication: Treatment Not Indicated VTE Drug Contraindication: N/A - Med Ordered
[2023-12-22] MEDS: Vitamin E (Dl,Tocopheryl Acet) 180 MG (400 UNIT) CAPSULE PO (09:39)
[2023-12-22] MEDS: DULoxetine HCl 60 MG CAPSULE.DR PO (09:39)
[2023-12-22] MEDS: ARIPiprazole 5 MG TABLET PO (09:39)
[2023-12-22] MEDS: 0.9 % Sodium Chloride Flush 3 ML SYRINGE IVFLUSH (09:39)
[2023-12-22] MEDS: Multivitamin TABLET 1 TAB PO (09:39)
[2023-12-22] MEDS: amLODIPine Besylate 10 MG TABLET PO (09:39)
[2023-12-22] MEDS: Metoprolol Tartrate 50 MG TABLET PO (09:39)
[2023-12-22] MEDS: Benztropine Mesylate 0.5 MG TABLET PO (09:39)
[2023-12-22 10:27] LABS: COVID-19 Test Negative (Negative); IDNOW Serial# 152EDE1D
[2023-12-22 11:28] LABS: Glucose, Whole Blood 118 mg/dL (60-115)
[2023-12-22 12:07] LABS: Ammonia 26 umol/L (13-55)
[2023-12-22 12:12] LABS: Valproate 45.1 mcg/mL (50.0-100.0)
--- NOTE | 2023-12-22 13:01 | MHC.SL.DTX ---
Dysphagia Diet modifications: Last documented Solid diet consistencies: Regular Last documented Liquid consistency: Thin Changes made to current diet?: No: No changes at this time Liquid Consistency and Strategies: Liquid Intake Recommendation: Thin Compensatory Strategies for Safe Swallow: Small Sips Compensatory Strategies for Safe Swallow(b): Sitting Upright (90 deg) Small Bites and Sips Alternate Liquids/Solids Rate of Ingestion Change Oral Check Avoid Specific Foods Solid Food Consistency: Dietary Recommendations: REGULAR solids w/ GROUND MEAT Additional Modifications to Solids: Continue on REGULAR texture diet to provide pt with more menu options, including soft & moistened breads (i.e. bread dipped in soup), soft noodles, soups. Pt is recommended direct supervision and close monitoring during meals, assist with cutting of food, opening of containers, ensuring utensils and food items are easily accessible to the pt. Ensure upright position. Alternate liquids & solids and check oral cavity for clearance. [facility] will continue to follow to monitor pt's tolerance of PO. Oral Medication Intake: Whole with Liquid Strategies and Precautions to be Taken for Safe Swallow: Sitting Upright (90 deg) Small Bites and Sips Alternate Liquids/Solids Rate of Ingestion Change Oral Check Avoid Specific Foods Supervision While Eating and/Drinking: Total Supervision (1:1) Foods to Avoid: Avoid hard, sticky, tough to chew foods Swallowing Recommended Treatments: Compens. Strategy Educat. Level of Impact on: Daily activities: Interpersonal interactions: Education: Employment: Community: Prognosis for Improvement: Good Recommendation for Speech: Pt is on a regular texture diet with the provision that caregivers are helping pt select softer foods from the menu, meats to be ground. Pt requires total 1:1 supervision during meals, assist with cutting of food, opening of containers, ensuring utensils and food items are easily accessible to the pt. Treatment: Pt seen with Son at bedside and lunch tray in place. She tolerates bites of broccoli soup and egg salad sandwich. Son reports she had a bagel this morning. Continues with [id number] difficulty chewing 2/2 ill-fitting dentures. Pt/caregivers demonstrate good ability to know what and what not to eat. No further [facility] intervention recommended at this time. Recommend direct supervision during meals, close monitoring, and aspiration precautions. These strategies were reviewed with the pt and her daughter. Should concerns persist, recommend further assessment with outpatient MBSS. Assessment: Snow Groomer Clinican/Clinical Fellow: No Supervisory Statement: I have reviewed and agree with the student/clinical fellow's documentation: N/A Speech Language Pathologist: Juan Miguel Tabares M.A., [facility]
--- NOTE | 2023-12-22 13:18 | P.DS_ITS ---
DS: Providers Provider Date of Service: 12/22/23 Date of admission: 12/15/23 10:15 Primary care physician: Susana Simmons MD Consults: 12/14/23 20:41 Consult to Psychiatry Routine Consulting Provider: Psych Covering Reason for consultation: decompensated bipolar disorder, med noncompliance 12/14/23 20:50 Consult to Neurology Routine Consulting Provider: [facility] Reason for consultation: new onset seizures 12/21/23 09:56 Consult to Care Team Routine Comment: Reason for consultation: Decompensated bipolar, needs Psych admission DS: Diagnosis Discharge Diagnosis (1) Bipolar disorder with severe esdras: Status: Acute (2) Generalized tonic-clonic seizure: Status: Acute DS: Summary Hospital Course Hospital Course: admission HPI Chief Complaint: ams, seizure 83-year-old female with history of bipolar disorder, hypertension, hyperlipidemia presented to the ED from [facility] following a witnessed ?tonic-clonic seizure? lasting about 3 minutes. Patient is unable to provide history secondary to decompensated bipolar disorder as well as postictal state as she did have a 2nd witnessed focal seizure while in the ED with left eye gaze deviation, rapid blinking, and stiff legs bilaterally. Discussed with patient's son who denies any history of seizure activity. He tells me that the patient has been noncompliant with her psychiatric medications for an unspecified period of time with subsequent decompensation of her bipolar disorder which has happened in the past. She was recently hospitalized at [facility] with discharge to [facility] for further management. He states that historically she will stop taking her medications thinking that her condition has improved and will subsequently decompensate. She has followed at the [facility] outpt for 20+ years. On arrival, pt tachycardic to 108, vitals otherwise stable. During witnessed focal seizure, patient desaturated to 66% on room air and was placed on non- rebreather now maintaining oximetry 100%. She was hypertensive to 165/73 on admission. No leukocytosis. There is a mild normocytic anemia with H/H 11.4/35.5%. Renal function consistent with baseline, electrolyte levels normal. Lactic acid 1.4. Glucose within normal limits. EKG shows NSR, rate 92 with (known) LBBB, QTc 509. Head CT negative for any acute intracranial abnormality. In the ED, given 2 mg IV Versed during witnessed focal seizure as above and loaded with 1500 mg IV Keppra. Hospital course: The patient with AMS and seizure, she has long standing bipolar disorder and is know to have bad decompensation when off meds. She has been med for sometime and was admitted to [facility] facility for decompensated bipolar and while there had a witnessed seizure ad details above and was brought to [facility] where labs were unremarkable, CT of head showed no acute finding. She was initiated on IV Keppra and was seen by Neurologist with recommendation for EEG and MRI. Unfortunately she has been very confused, with deorganized thought typical of bipolar. She was refusing care, including taking medications and often only will take meds from her son. Psychiatry saw her and recommended Depakote which seems to have improved her condition and is more organzed thought, more cooperative, since depakote is also used to treat seizure, Keppra was stopped. Depakote level 45 today. She is on Fluphenazine IM shot monthly and received dose on 12/21/23. ? has diet controlled diabetes, hemoglobin A1C is 5.2, hightest sugar 164 and mostly less than 120 and has not required any insulin Time Attestation Discharge coordination time: Greater than 30 minutes Quality: Safe Use of Opioids Does Pt have an Active Cancer Diagnosis on the Problem List?: No Quality: Stroke Does the patient have a stroke diagnosis?: No Physical Exam Vital Signs: Vital Signs: Last Vital Signs Temp 97.2 F 12/22/23 08:00 Pulse 66 12/22/23 08:00 Resp 16 12/22/23 08:00 BP 149/66 H 12/22/23 08:00 Pulse Ox 95 12/22/23 08:00 O2 Del Method Room Air 12/22/23 08:00 O2 Flow Rate 9 12/14/23 20:50 BMI result Body Mass Index 26.3 DS: Data Data Completed and Pending Labs on day of discharge: Laboratory Results - last 24 hr 12/21/23 12/22/23 12/22/23 17:14 00:47 05:53 POC Glucose 91 126 H 74 Ammonia Hold Yellow Top Valproic Acid COVID-19 ([facility]) COVID-19 Clin Com 12/22/23 12/22/23 12/22/23 09:55 11:22 11:41 POC Glucose 118 H Ammonia 26 Hold Yellow Top Valproic Acid 45.1 L COVID-19 ([facility]) Negative COVID-19 Clin Com See Note 12/22/23 11:51 POC Glucose Ammonia Hold Yellow Top See Note Valproic Acid COVID-19 ([facility]) COVID-19 Clin Com Discharge Plan Discharge Anticipated Discharge Date/Time: 12/22/23 13:19 Patient Disposition: Xfer Psychiatric Hosp Discharge Diagnosis: Seizure, Decompensated Bipolar Referrals: Susana Simmons MD [Primary Care Provider] - 1 Week Discharge Medications: New amlodipine 10 mg Tablet 10 mg PO DAILY Qty: 30 0RF Protocol: Hold for SBP< HOLD for SBP < : 90 divalproex [Depakote] 500 mg tablet,delayed release (DR/EC) 750 mg PO BID Qty: 60 0RF Continued multivitamin Tablet 1 tab PO DAILY sennosides [senna] 8.6 mg Tablet 8.6 mg PO BEDTIME PRN (Reason: Constipation) atorvastatin 20 mg Tablet 20 mg PO BEDTIME benztropine 0.5 mg tablet 0.5 mg PO DAILY trazodone 50 mg Tablet 50 mg PO BEDTIME PRN (Reason: Insomnia) fluphenazine decanoate 25 mg/mL Solution 25 mg IM QMONTH Rx Instructions: due 12/26/23 carbamazepine 100 mg Tablet,Chewable 200 mg PO BID vitamin E 268 mg (400 unit) Capsule 268 mg PO DAILY aripiprazole 5 mg Tablet 5 mg PO DAILY metoprolol tartrate 25 mg Tablet 50 mg PO BID duloxetine 30 mg Capsule,Delayed Release(Dr/Ec) 30 mg PO DAILY duloxetine 60 mg Capsule,Delayed Release(Dr/Ec) 60 mg PO DAILY Discontinued clindamycin HCl 150 mg Capsule 300 mg PO QID Rx Instructions: x 7 days, finsih 12/18/23 @ 2100 amlodipine 5 mg Tablet 5 mg PO DAILY Discharge Orders: Discharge Order (Routine); Ordered 12/22/23 Ordered By: Denis Cox Diet: Advance to usual diet Activity on Discharge: As tolerated Stand Alone Forms: Patient Portal Discharge page
--- NOTE | 2023-12-22 14:59 | MHC.CM.PN ---
Pt is being transferred to inpatient [facility] unit.
== END 2023-12-22 13:57 | DRG 896 ==
LOC: HO.ED 20:46 → HO.EDOVER 20:48 → HO.IMC 23:26
PROVIDERS: Social Worker; Student in an Organized Health Care Education/Training Program; Admitting Provider Physician Assistant; Emergency Provider Emergency Medicine; PCP Family Medicine; Visit Provider Internal Medicine
DX: F19.130 Other psychoactive substance abuse with withdrawal, uncomplicated (principal); J96.01 Acute respiratory failure with hypoxia; F31.13 Bipolar disorder, current episode manic without psychotic features, severe; R56.9 Unspecified convulsions; R94.31 Abnormal electrocardiogram [ECG] [EKG]; E16.2 Hypoglycemia, unspecified; I10 Essential (primary) hypertension; E78.5 Hyperlipidemia, unspecified; D64.9 Anemia, unspecified; Z91.148 Patient's other noncompliance with medication regimen for other reason; Z20.822 Contact with and (suspected) exposure to COVID-19; Z79.899 Other long term (current) drug therapy
CPT/HCPCS: 36415; 70450; 80048; 80076; 80164; 81003; 82140; 82947; 83036; 83605; 83735; 84484; 85025; 85027; 85610; 87635; 92526; 92610; 93005; 95816; 97162; 99222; 99285; J0360; J1650; J1953; J2250; J2680; J3360; S9485

== ENCOUNTER → 2023-12-14 13:09 | Outpatient (BNV) | payer MEDICARE, MEDICAID, SELFPAY | PROVIDERS: Emergency Provider Emergency Medicine; PCP Family Medicine; Visit Provider Internal Medicine Cardiovascular Disease | DX: R94.31 Abnormal electrocardiogram [ECG] [EKG] (principal) | CPT/HCPCS: 93010 ==

== ENCOUNTER → 2023-12-14 20:31 | Outpatient (BNV) | payer MEDICARE, MEDICAID, SELFPAY | PROVIDERS: Admitting Provider Physician Assistant; Emergency Provider Emergency Medicine; PCP Family Medicine; Visit Provider Physician Assistant | DX: F31.13 Bipolar disorder, current episode manic without psychotic features, severe (principal); G40.409 Other generalized epilepsy and epileptic syndromes, not intractable, without status epilepticus | CPT/HCPCS: 99223; 99232; 99238; 99499 ==

== ENCOUNTER 2023-12-15 10:15 | Outpatient (BNV) | payer MEDICARE, MEDICAID, SELFPAY | END 2023-12-19 13:23 | PROVIDERS: Admitting Provider Physician Assistant; Emergency Provider Emergency Medicine; PCP Family Medicine; Visit Provider Internal Medicine | DX: R94.31 Abnormal electrocardiogram [ECG] [EKG] (principal) | CPT/HCPCS: 93010 ==

== ENCOUNTER → 2023-12-15 10:15 | Outpatient (BNV) | payer MEDICARE, MEDICAID, SELFPAY | PROVIDERS: Admitting Provider Physician Assistant; Emergency Provider Emergency Medicine; PCP Family Medicine; Visit Provider Social Worker | DX: F31.13 Bipolar disorder, current episode manic without psychotic features, severe (principal); G40.409 Other generalized epilepsy and epileptic syndromes, not intractable, without status epilepticus | CPT/HCPCS: 99232; 99233 ==

== ENCOUNTER → 2023-12-15 10:15 | Outpatient (BNV) | payer MEDICARE, MEDICAID, SELFPAY | PROVIDERS: Admitting Provider Physician Assistant; Emergency Provider Emergency Medicine; PCP Family Medicine; Visit Provider Psychiatry & Neurology Neurology | DX: G40.409 Other generalized epilepsy and epileptic syndromes, not intractable, without status epilepticus (principal) | CPT/HCPCS: 99222 ==

== ENCOUNTER 2023-12-22 14:28 | Inpatient (IN) | payer MEDICARE, MEDICAID, SELFPAY ==
--- NOTE | 2023-12-22 14:32 | HO.PSYADMNOT ---
HPI Date of Service: 12/22/23 Chief Complaint: esdras Sources of Information: patient interviewed, chart reviewed and crisis/core team assessment reviewed HPI Subjective Notes: Walker Warning (explained that information she provides can be disclosed in court if her safety is compromised or that of other if she is not psychiatrically stable. to us can shared with the court if ) and Conditional Voluntary Narrative: Mrs. Bob is a 83 year-old woman with hx of Bipolar Disorder who initially was brought to [facility] on 12/01/23 due to presenting with paranoia ideas, not talking, refusing medications. She was then sent to [facility] for inpatient psychiatric treatment. This bond underwriter spoke with SW from [facility] who reports pt had been refusing medication and team had filed for involuntary commitment. She was transported on 12/15/23 for suspicion of tonic-clonic seizure. Additional collateral information gathered from his son- Devonte who reports pt has hx of Bipolar for more than 20 years. She has been receiving outpatient psychiatric services at [facility] for about 20 years. Son reports she has had about 4 inpt psych admission with similar presentation including mutism, laughing for unclear reasons, paranoia thinking meds are poisoned and she is being watched, declining to take medications, more disorganized behaviors. He reports when she is doing well she functions without an issue. In terms of medication regimen--> she has been on NOLEN fluphenazine 25mg IM monthly, last dose was 11/25/2023 which was given at [facility]. She has NOT missed a dose of fluphenazine. She is also on aripiprazole 5mg po BID. Apparently, carbamazepine was discontinued by provider (pending collateral information by outpatient provider Misha Coles) back in 06/2023. While Mrs. Bob was on the medical floor, she was started on depakote 500mg IV BID. She received fluphenazine 25mg IM. She initially was not talking much. She later was talking more. She presented with flirtatious behaviors towards male staff. Some irritability but slowly had agreed to resume oral medications for both psychiatric and medical conditions. She denied SI/HI. On the unit, pt reports she upset about being on a psychiatric unit, that she feels more comfortable on the medical floor. She states I'm not crazy. Past Psychiatric History: Inpt: 4 in the past unclear when last admission was and where OP: [facility] Past med trials: fluphenazine, abilify, carbamazepine, cymbalta Medical Evaluation Reviewed: Yes [facility] Medical History HLD (hyperlipidemia) H/O: HTN (hypertension) Bipolar disorder Family History: unknown Social History: lives with her . 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 Substance History: none Trauma History: none disclosed Diagnostics Labs 12/22/23 11:51 Meds/Allergies Meds Home Medications Medication Instructions Recorded Confirmed Type aripiprazole 5 mg tablet 5 mg PO DAILY 12/14/23 12/22/23 History atorvastatin 20 mg tablet 20 mg PO BEDTIME 12/14/23 12/22/23 History benztropine 0.5 mg tablet 0.5 mg PO DAILY 12/14/23 12/22/23 History duloxetine 60 mg capsule,delayed 60 mg PO DAILY 12/14/23 12/22/23 History release fluphenazine decanoate 25 mg/mL 25 mg IM QMONTH 12/14/23 12/22/23 History injection solution metoprolol tartrate 25 mg tablet 50 mg PO BID 12/14/23 12/22/23 History multivitamin 1 tab PO DAILY 12/14/23 12/22/23 History sennosides 8.6 mg tablet (senna) 17.2 mg PO BEDTIME PRN Constipation 12/14/23 12/22/23 History trazodone 50 mg tablet 50 mg PO BEDTIME PRN Insomnia 12/14/23 12/22/23 History vitamin E 268 mg (400 unit) capsule 268 mg PO DAILY 12/14/23 12/22/23 History Allergies Allergies Allergy/AdvReac Type Severity Reaction Status Date / Time No Known Allergies Allergy Verified 12/14/23 12:31 Mental Status Exam Mental Status Exam Narrative: Appearance: wearing hospital gown, fair hygiene, in NAD Behavior: somewhat guarded Speech: more clear, less hyperverbal, regular tone, spontaneous TP: more coherent and logical Affect: expansive, AH/VH: appears internally preoccupied, Delusions: some suspiciousness about medications, more disinhibited Insight/judgment: impaired x 2 Assessment & Plan Assessment & Plan (1) Bipolar disorder with severe esdras: Status: Acute Code(s): F31.13 - Bipolar disorder, current episode manic without psychotic features, severe Plan Mrs. Bob is a 83 year-old woman with hx of Bipolar Disorder type 1 who was transferred from [place] due to concern of seizure. She had been hospitalized in the psychiatric hospital due to increase paranoia, mutism, disorganized behavior. She has been presenting with more flirtatious, labile mood. She is now refusing oral medication. PLAN 1. Admit to S1, 15 minutes checks for safety 2. continue depakote 750mg po BID, fluphenazine 25mg IM qmonthly last dose 12/21 3. aftercare planning. Patient educated on: diagnosis and medication risk/benefits Reason for continued inpatient stay Substantial Risk for: inability to function Statement Statement: I have reviewed the history and physical and performed a pertinent examination on my patient. No changes have occurred unless specified. If the History and Physical was not performed prior to admission, the Hospitalist's service will be consulted for completing the admission physical. Time Spent With Patient Time: Total time managing care of this patient today ____ minutes.
[2023-12-22 15:27] LABS: Estimated Glomerular Filt Rate > 60
[2023-12-22 16:17] VITALS: BMI 26.3
--- NOTE | 2023-12-22 17:40 | PC.ADMIT ---
Addendum entered by Alexa Butler RN 12/22/23 18:41: Patient noted to have reddened/swollen area L wrist painful to touch at former IV site. Original Note: Patient admitted to S1 from S4 at 1540 via bed due to refusal to get into . Legal status is CV by HCP (son). Patient in hospital attire appears neat and well groomed.alert and oriented to person and place. Previously unknown to [facility] patient has had 4 previous psych admissions in the past. 20 year HX of Bipolar disorder.Per son patient is fully functional when taking meds however has history of noncompliance leading to esdras and hospitalizations. Patient on medical floor due to having suffered a tonic-clonic seizure while in the [facility] ED. Patient initially presented with elevated mood, paranoia, decreased sleep and psychomotor agitation. Patient medically cleared for transfer. Since arrival on unit patient speaking minimally using hand signals instead. She will speak to select staff. Patient has been on NOLEN, fluphenazine 25 mg IM monthly. Last dose 12/21/23. Past medical HX includes HTN, HLD. VSS. EKG NSR. CT of Head negative. Patient oriented to unit. Belongings inventoried.
[2023-12-22 18:00] VITALS: BP 128/65; PULSE 78; RESP 17; TEMP 37.2; O2SAT 95
[2023-12-22 22:29] VITALS: RESP 16
[2023-12-23 08:00] VITALS: BP 139/66; PULSE 85; RESP 16; TEMP 37.2; O2SAT 96
--- NOTE | 2023-12-23 15:22 | MHC.CLN ---
NUTRITION PATIENT SEEN BY [employer] 12/22/23 WHILE ON IMC. PER [employer] NOTE: Dietary Recommendations: REGULAR solids w/ GROUND MEAT Additional Modifications to Solids: Continue on REGULAR texture diet to provide pt with more menu options, including soft & moistened breads (i.e. bread dipped in soup), soft noodles, soups. COMMUNICATED WITH DINING SERVICES STAFF.
--- NOTE | 2023-12-23 16:38 | P.PNPSI_ITS ---
Subjective Subjective Date of Service: 12/23/23 Reason For Visit: esdras Subjective Notes: Conditional Voluntary Interim History: Pt reports she is upset about being here on the psychiatric unit. She states I am not crazy. She denies SI/HI. She is declining medications and states I don't need them. She slept most of the night. Medication Compliance: Yes Side effects from medications: No Mental Status Exam Mental Status Exam Narrative: Appearance: wearing hospital gown, fair hygiene, in NAD Behavior: somewhat guarded Speech: more clear, less hyperverbal, regular tone, spontaneous TP: more coherent and logical Affect: expansive, AH/VH: appears internally preoccupied, Delusions: some suspiciousness about medications, more disinhibited Insight/judgment: impaired x 2 Diagnostics Vital Signs (24Hr): Vital Signs - 24 hr 12/22/23 18:00 12/22/23 22:29 12/23/23 08:00 Temperature 98.9 F 99.0 F Pulse Rate 78 85 Respiratory Rate 17 16 16 Blood Pressure 128/65 139/66 Pulse Oximetry 95 96 Oxygen Delivery Method Room Air Room Air BMI result Body Mass Index 26.3 Labs 12/22/23 11:51 Labs: Laboratory Results - last 48 hr 12/22/23 11:51 Creatinine 0.85 Estim Creat Clear Calc TNP Estimated GFR > 60 Medications Medications Current Medications Acetaminophen (Acetaminophen 325 Mg Tablet) 650 mg PO Q6H PRN PRN Reason: Pain, Mild (Pain Scale 1-3) Al Hydroxide/Mg Hydroxide (Magnesium Hydrox/Alum Hydrox 30 Ml Oral.Susp) 30 ml PO Q6H PRN PRN Reason: Heartburn/Nausea Amlodipine Besylate (Amlodipine Besylate 10 Mg Tablet) 10 mg PO DAILY [facility]; Protocol Last Admin: 12/23/23 10:51 Dose: Not Given Aripiprazole (Aripiprazole 5 Mg Tablet) 5 mg PO DAILY [facility] Last Admin: 12/23/23 10:51 Dose: Not Given Atorvastatin Calcium (Atorvastatin Calcium 20 Mg Tablet) 20 mg PO BEDTIME [facility] Last Admin: 12/22/23 22:16 Dose: Not Given Benztropine Mesylate (Benztropine Mesylate 0.5 Mg Tablet) 0.5 mg PO DAILY [facility] Last Admin: 12/23/23 10:51 Dose: Not Given Divalproex Sodium (Divalproex Sodium 250 Mg Tablet.) 750 mg PO BID [facility] Last Admin: 12/23/23 10:51 Dose: Not Given Duloxetine HCl (Duloxetine Hcl 60 Mg Capsule.) 60 mg PO DAILY [facility] Last Admin: 12/23/23 10:51 Dose: Not Given Enoxaparin Sodium (Enoxaparin Sodium 40 Mg/0.4 Ml Syringe) 40 mg SUBCUT Q24H [facility] Last Admin: 12/22/23 22:16 Dose: Not Given Fluphenazine Decanoate (Fluphenazine Decanoate 25 Mg/Ml 5 Ml Vial) 25 mg IM Q28D [facility] Magnesium Hydroxide (Milk Of Magnesia 30 Ml Oral.Susp) 30 ml PO DAILY PRN PRN Reason: Constipation Metoprolol Tartrate (Metoprolol Tartrate 50 Mg Tablet) 50 mg PO BID [facility]; Protocol Last Admin: 12/23/23 10:51 Dose: Not Given Multivitamins/Vitamin C (Multivitamin Tablet) 1 tab PO DAILY [facility] Last Admin: 12/23/23 10:51 Dose: Not Given Senna (Sennosides 8.6 Mg Tablet) 17.2 mg PO BEDTIME PRN PRN Reason: Constipation Senna (Sennosides 8.6 Mg Tablet) 8.6 mg PO BEDTIME PRN PRN Reason: Constipation Trazodone HCl (Trazodone Hcl 50 Mg Tablet) 50 mg PO BEDTIME PRN PRN Reason: Insomnia Vitamin E (Vitamin E (Dl,Tocopheryl Acet) 180 Mg (400 Unit) Capsule) 180 mg PO DAILY [facility] Last Admin: 12/23/23 10:51 Dose: Not Given Allergies Allergies Allergy/AdvReac Type Severity Reaction Status Date / Time No Known Allergies Allergy Verified 12/14/23 12:31 Assessment & Plan Assessment & Plan (1) Bipolar disorder with severe esdras: Status: Acute Code(s): F31.13 - Bipolar disorder, current episode manic without psychotic features, severe Plan Mrs. Bob is a 83 year-old woman with hx of bipolar. She was started on depakote, continued on fluphenazine. currently declining oral medications. Reason for continued inpatient stay Substantial Risk for: inability to function Time Spent With Patient Time: Total time managing care of this patient today ____ minutes.
[2023-12-23 18:00] VITALS: BP 176/80; PULSE 83; RESP 12; TEMP 36.1; O2SAT 99
[2023-12-24 10:17] VITALS: BP 115/57; PULSE 91; RESP 16; TEMP 36.8; O2SAT 97
--- NOTE | 2023-12-24 10:32 | P.PNPSI_ITS ---
Subjective Subjective Date of Service: 12/24/23 Reason For Visit: esdras Subjective Notes: Conditional Voluntary Healthcare Proxy: Yes Interim History: Pt less irritable today. She agreed to take medications from male staff. She continues to report some paranoia towards and mistrust of her medications. She slept most of the night, still some expansive mood. Mental Status Exam Mental Status Exam Narrative: Appearance: wearing hospital gown, fair hygiene, in NAD Behavior: somewhat guarded Speech: more clear, less hyperverbal, regular tone, spontaneous TP: more coherent and logical Affect: expansive, AH/VH: appears internally preoccupied, Delusions: some suspiciousness about medications, more disinhibited Insight/judgment: impaired x 2 Diagnostics Vital Signs (24Hr): Vital Signs - 24 hr 12/23/23 18:00 12/24/23 10:17 Temperature 96.9 F 98.2 F Pulse Rate 83 91 Respiratory Rate 12 16 Blood Pressure 176/80 H 115/57 L Pulse Oximetry 99 97 Oxygen Delivery Method Room Air Room Air BMI result Body Mass Index 26.3 Labs 12/22/23 11:51 Labs: Laboratory Results - last 48 hr 12/22/23 11:51 Creatinine 0.85 Estim Creat Clear Calc TNP Estimated GFR > 60 Medications Medications Current Medications Acetaminophen (Acetaminophen 325 Mg Tablet) 650 mg PO Q6H PRN PRN Reason: Pain, Mild (Pain Scale 1-3) Al Hydroxide/Mg Hydroxide (Magnesium Hydrox/Alum Hydrox 30 Ml Oral.Susp) 30 ml PO Q6H PRN PRN Reason: Heartburn/Nausea Amlodipine Besylate (Amlodipine Besylate 10 Mg Tablet) 10 mg PO DAILY [facility]; Protocol Last Admin: 12/23/23 10:51 Dose: Not Given Aripiprazole (Aripiprazole 5 Mg Tablet) 5 mg PO DAILY [facility] Last Admin: 12/23/23 10:51 Dose: Not Given Atorvastatin Calcium (Atorvastatin Calcium 20 Mg Tablet) 20 mg PO BEDTIME [facility] Last Admin: 12/23/23 22:10 Dose: Not Given Benztropine Mesylate (Benztropine Mesylate 0.5 Mg Tablet) 0.5 mg PO DAILY [facility] Last Admin: 12/23/23 10:51 Dose: Not Given Divalproex Sodium (Divalproex Sodium 250 Mg Tablet.) 750 mg PO BID [facility] Last Admin: 12/23/23 22:10 Dose: Not Given Duloxetine HCl (Duloxetine Hcl 60 Mg Capsule.Dr) 60 mg PO DAILY [facility] Last Admin: 12/23/23 10:51 Dose: Not Given Enoxaparin Sodium (Enoxaparin Sodium 40 Mg/0.4 Ml Syringe) 40 mg SUBCUT Q24H [facility] Last Admin: 12/23/23 22:11 Dose: Not Given Fluphenazine Decanoate (Fluphenazine Decanoate 25 Mg/Ml 5 Ml Vial) 25 mg IM Q28D [facility] Magnesium Hydroxide (Milk Of Magnesia 30 Ml Oral.Susp) 30 ml PO DAILY PRN PRN Reason: Constipation Metoprolol Tartrate (Metoprolol Tartrate 50 Mg Tablet) 50 mg PO BID [facility]; Protocol Last Admin: 12/23/23 22:11 Dose: Not Given Multivitamins/Vitamin C (Multivitamin Tablet) 1 tab PO DAILY [facility] Last Admin: 12/23/23 10:51 Dose: Not Given Senna (Sennosides 8.6 Mg Tablet) 17.2 mg PO BEDTIME PRN PRN Reason: Constipation Senna (Sennosides 8.6 Mg Tablet) 8.6 mg PO BEDTIME PRN PRN Reason: Constipation Trazodone HCl (Trazodone Hcl 50 Mg Tablet) 50 mg PO BEDTIME PRN PRN Reason: Insomnia Vitamin E (Vitamin E (Dl,Tocopheryl Acet) 180 Mg (400 Unit) Capsule) 180 mg PO DAILY [facility] Last Admin: 12/23/23 10:51 Dose: Not Given Allergies Allergies Allergy/AdvReac Type Severity Reaction Status Date / Time No Known Allergies Allergy Verified 12/14/23 12:31 Assessment & Plan Assessment & Plan (1) Bipolar disorder with severe esdras: Status: Acute Code(s): F31.13 - Bipolar disorder, current episode manic without psychotic features, severe Plan Mrs. Bob is a 83 year-old woman with hx of bipolar. She was started on depakote, continued on fluphenazine. currently declining oral medications. 12/24 continue tx. Reason for continued inpatient stay Substantial Risk for: inability to function Time Spent With Patient Time: Total time managing care of this patient today ____ minutes.
[2023-12-24] MEDS: amLODIPine Besylate 10 MG TABLET PO (10:48)
[2023-12-24] MEDS: ARIPiprazole 5 MG TABLET PO (10:48)
[2023-12-24] MEDS: Divalproex Sodium 250 MG TABLET.DR 750 MG PO (10:52)
[2023-12-24 18:00] VITALS: BP 161/71; PULSE 88; RESP 18; TEMP 36.3; O2SAT 95
[2023-12-25 08:31] VITALS: BP 163/71; PULSE 101; RESP 17; TEMP 36.8; O2SAT 94
[2023-12-25] MEDS: Metoprolol Tartrate 50 MG TABLET PO ×2 (09:20→21:57)
[2023-12-25] MEDS: amLODIPine Besylate 10 MG TABLET PO (09:35)
[2023-12-25] MEDS: Vitamin E (Dl,Tocopheryl Acet) 180 MG (400 UNIT) CAPSULE PO (10:21)
[2023-12-25] MEDS: Multivitamin TABLET 1 TAB PO (10:22)
--- NOTE | 2023-12-25 17:36 | PC.NURSE ---
Patient refused scheduled Depakote this morning. Refusal reported to MARLIN Walsh and due to patients compliance with male staff rather than females, Radha requested shift foreman give both the morning and night time dose of Depakote tonight.
[2023-12-25 18:00] VITALS: BP 166/77; PULSE 78; RESP 18; TEMP 36.8; O2SAT 99
--- NOTE | 2023-12-25 18:02 | HO.PSYCHPN ---
Subjective Subjective Date of Service: 12/25/23 Reason For Visit: esdras Subjective Notes: Conditional Voluntary Interim History: Pt slept most of the night. She continues to present with expansive mood, poor boundaries with males but redirectable. SHe declined depakote this morning stating that it was not given by male staff who gave it to her yesterday (such staff not on unit today). She has been less irritable, more open to accept medications. No SI/HI. social with select peers. Mental Status Exam Mental Status Exam Narrative: Appearance: wearing hospital gown, fair hygiene, in NAD Behavior: somewhat guarded Speech: more clear, less hyperverbal, regular tone, spontaneous TP: more coherent and logical Affect: expansive, AH/VH: appears internally preoccupied, Delusions: some suspiciousness about medications, more disinhibited Insight/judgment: impaired x 2 Diagnostics Vital Signs (24Hr): Vital Signs - 24 hr 12/25/23 08:31 Temperature 98.2 F Pulse Rate 101 H Respiratory Rate 17 Blood Pressure 163/71 H Pulse Oximetry 94 Oxygen Delivery Method Room Air BMI result Body Mass Index 26.3 Labs 12/22/23 11:51 Medications Medications Current Medications Acetaminophen (Acetaminophen 325 Mg Tablet) 650 mg PO Q6H PRN PRN Reason: Pain, Mild (Pain Scale 1-3) Al Hydroxide/Mg Hydroxide (Magnesium Hydrox/Alum Hydrox 30 Ml Oral.Susp) 30 ml PO Q6H PRN PRN Reason: Heartburn/Nausea Amlodipine Besylate (Amlodipine Besylate 10 Mg Tablet) 10 mg PO DAILY [facility]; Protocol Last Admin: 12/25/23 09:35 Dose: 10 mg Aripiprazole (Aripiprazole 5 Mg Tablet) 5 mg PO DAILY [facility] Last Admin: 12/25/23 11:16 Dose: Not Given Atorvastatin Calcium (Atorvastatin Calcium 20 Mg Tablet) 20 mg PO BEDTIME [facility] Last Admin: 12/24/23 21:02 Dose: Not Given Divalproex Sodium (Divalproex Sodium 250 Mg Tablet.) 750 mg PO BID [facility] Last Admin: 12/24/23 21:02 Dose: Not Given Duloxetine HCl (Duloxetine Hcl 60 Mg Capsule.) 60 mg PO DAILY [facility] Last Admin: 12/25/23 11:16 Dose: Not Given Enoxaparin Sodium (Enoxaparin Sodium 40 Mg/0.4 Ml Syringe) 40 mg SUBCUT Q24H [facility] Last Admin: 12/24/23 21:02 Dose: Not Given Fluphenazine Decanoate (Fluphenazine Decanoate 25 Mg/Ml 5 Ml Vial) 25 mg IM Q28D [facility] Magnesium Hydroxide (Milk Of Magnesia 30 Ml Oral.Susp) 30 ml PO DAILY PRN PRN Reason: Constipation Metoprolol Tartrate (Metoprolol Tartrate 50 Mg Tablet) 50 mg PO BID [facility]; Protocol Last Admin: 12/25/23 09:20 Dose: 50 mg Multivitamins/Vitamin C (Multivitamin Tablet) 1 tab PO DAILY [facility] Last Admin: 12/25/23 10:22 Dose: 1 tab Senna (Sennosides 8.6 Mg Tablet) 17.2 mg PO BEDTIME PRN PRN Reason: Constipation Senna (Sennosides 8.6 Mg Tablet) 8.6 mg PO BEDTIME PRN PRN Reason: Constipation Trazodone HCl (Trazodone Hcl 50 Mg Tablet) 50 mg PO BEDTIME PRN PRN Reason: Insomnia Vitamin E (Vitamin E (Dl,Tocopheryl Acet) 180 Mg (400 Unit) Capsule) 180 mg PO DAILY [facility] Last Admin: 12/25/23 10:21 Dose: 180 mg Allergies Allergies Allergy/AdvReac Type Severity Reaction Status Date / Time No Known Allergies Allergy Verified 12/14/23 12:31 Assessment & Plan Assessment & Plan (1) Bipolar disorder with severe esdras: Status: Acute Code(s): F31.13 - Bipolar disorder, current episode manic without psychotic features, severe Plan Mrs. Bob is a 83 year-old woman with hx of bipolar. She was started on depakote, continued on fluphenazine. currently declining oral medications. 12/25 continue tx. Reason for continued inpatient stay Substantial Risk for: inability to function Time Spent With Patient Time: Total time managing care of this patient today ____ minutes.
[2023-12-25] MEDS: Divalproex Sodium 250 MG TABLET.DR 750 MG PO (21:55)
[2023-12-25] MEDS: traZODone HCL 50 MG TABLET PO (21:55)
[2023-12-25] MEDS: Atorvastatin Calcium 20 MG TABLET PO (21:57)
[2023-12-26 09:10] VITALS: BP 140/65; PULSE 89; RESP 18; TEMP 37.2; O2SAT 98
[2023-12-26] MEDS: amLODIPine Besylate 10 MG TABLET PO (09:33)
[2023-12-26] MEDS: DULoxetine HCl 60 MG CAPSULE.DR PO (09:33)
[2023-12-26] MEDS: Vitamin E (Dl,Tocopheryl Acet) 180 MG (400 UNIT) CAPSULE PO (09:33)
[2023-12-26] MEDS: Metoprolol Tartrate 50 MG TABLET PO ×2 (09:34→21:27)
[2023-12-26] MEDS: Multivitamin TABLET 1 TAB PO (09:34)
[2023-12-26] MEDS: ARIPiprazole 5 MG TABLET PO (09:36)
--- NOTE | 2023-12-26 10:26 | HO.PSYCHPN ---
Subjective Subjective Date of Service: 12/26/23 Reason For Visit: esdras Interim History: Pt seen, discussed with team. Asks to be discharged. Several [id number] is loud, too many meds (refused some meds this a.m.) Discussed feeling burdened, you know, I am everyones Gustabo Howell, I cannot escape it, they all need me to be their savior. She is unable to elaborate much more on this statement with specifics today, presents with mild irritability, denies pain, I just want to go home to [place], where the people are normal. Medication Compliance: Yes Side effects from medications: No Attending Groups: Intermittent Review of Systems Acute medical concerns: No Medical Review of Systems: unchanged Review of Systems Review of Systems Yes all other systems are reviewed and are negative (pt denies today.) Mental Status Exam Mental Status Exam Patient Appearance: Fatigued Patient Orientation: Person and Place Level of Consciousness: Alert Patient Behavior: Talkative and Good Eye Contact Mood Description: Constricted Affect Description: Constricted Patient Cognition Impaired: No Ability to Follow Directions: Good Speech Pattern: Spontaneous Speech Memory Description: Remote Impaired Hallucinations: None Delusions: Paranoid Ideation (??) Perceptual Disturbances: Depersonalization Thought Process: Rumination Thought Content: positive for Circumstantial and positive for Suicidal Ideation (denies) Depressive Symptoms: Increased Irritability Judgement: Fair Diagnostics Vital Signs (24Hr): Vital Signs - 24 hr 12/25/23 18:00 12/26/23 09:10 Temperature 98.2 F 98.9 F Pulse Rate 78 89 Respiratory Rate 18 18 Blood Pressure 166/77 H 140/65 H Pulse Oximetry 99 98 Oxygen Delivery Method Room Air Room Air BMI result Body Mass Index 26.3 Labs 12/22/23 11:51 Medications Medications Current Medications Acetaminophen (Acetaminophen 325 Mg Tablet) 650 mg PO Q6H PRN PRN Reason: Pain, Mild (Pain Scale 1-3) Al Hydroxide/Mg Hydroxide (Magnesium Hydrox/Alum Hydrox 30 Ml Oral.Susp) 30 ml PO Q6H PRN PRN Reason: Heartburn/Nausea Amlodipine Besylate (Amlodipine Besylate 10 Mg Tablet) 10 mg PO DAILY [facility]; Protocol Last Admin: 12/26/23 09:33 Dose: 10 mg Aripiprazole (Aripiprazole 5 Mg Tablet) 5 mg PO DAILY [facility] Last Admin: 12/26/23 09:36 Dose: 5 mg Atorvastatin Calcium (Atorvastatin Calcium 20 Mg Tablet) 20 mg PO BEDTIME [facility] Last Admin: 12/25/23 21:57 Dose: 20 mg Divalproex Sodium (Divalproex Sodium 250 Mg Tablet.) 750 mg PO BID [facility] Last Admin: 12/26/23 09:34 Dose: 750 mg Duloxetine HCl (Duloxetine Hcl 60 Mg Capsule.) 60 mg PO DAILY [facility] Last Admin: 12/26/23 09:33 Dose: 60 mg Enoxaparin Sodium (Enoxaparin Sodium 40 Mg/0.4 Ml Syringe) 40 mg SUBCUT Q24H [facility] Last Admin: 12/25/23 22:09 Dose: Not Given Fluphenazine Decanoate (Fluphenazine Decanoate 25 Mg/Ml 5 Ml Vial) 25 mg IM Q28D [facility] Magnesium Hydroxide (Milk Of Magnesia 30 Ml Oral.Susp) 30 ml PO DAILY PRN PRN Reason: Constipation Metoprolol Tartrate (Metoprolol Tartrate 50 Mg Tablet) 50 mg PO BID [facility]; Protocol Last Admin: 12/26/23 09:34 Dose: 50 mg Multivitamins/Vitamin C (Multivitamin Tablet) 1 tab PO DAILY [facility] Last Admin: 12/26/23 09:34 Dose: 1 tab Senna (Sennosides 8.6 Mg Tablet) 17.2 mg PO BEDTIME PRN PRN Reason: Constipation Senna (Sennosides 8.6 Mg Tablet) 8.6 mg PO BEDTIME PRN PRN Reason: Constipation Trazodone HCl (Trazodone Hcl 50 Mg Tablet) 50 mg PO BEDTIME PRN PRN Reason: Insomnia Last Admin: 12/25/23 21:55 Dose: 50 mg Vitamin E (Vitamin E (Dl,Tocopheryl Acet) 180 Mg (400 Unit) Capsule) 180 mg PO DAILY [facility] Last Admin: 12/26/23 09:33 Dose: 180 mg Allergies Allergies Allergy/AdvReac Type Severity Reaction Status Date / Time No Known Allergies Allergy Verified 12/14/23 12:31 Assessment & Plan Assessment & Plan (1) Bipolar disorder with severe esdras: Status: Acute Code(s): F31.13 - Bipolar disorder, current episode manic without psychotic features, severe Plan Mrs. Bob is a 83 year-old woman with hx of bipolar. She was started on depakote, continued on fluphenazine. currently declining oral medications. 2/9 continue tx. 12/26 continue tx. Informed Consent: further education needed Reason for continued inpatient stay Substantial Risk for: rapid decompensation Time Spent With Patient Time: Total time managing care of this patient today ____ minutes.
[2023-12-26] MEDS: Magnesium Hydrox/Alum Hydrox 30 ML ORAL.SUSP PO (18:56)
[2023-12-26 19:50] VITALS: BP 156/70; PULSE 75; RESP 16; TEMP 36.3; O2SAT 96
[2023-12-26] MEDS: traZODone HCL 50 MG TABLET PO (21:27)
[2023-12-26] MEDS: Divalproex Sodium 250 MG TABLET.DR 750 MG PO (21:27)
[2023-12-26] MEDS: Atorvastatin Calcium 20 MG TABLET PO (21:27)
[2023-12-27 08:00] VITALS: BP 139/67; PULSE 81; RESP 18; TEMP 36.7; O2SAT 99
[2023-12-27] MEDS: Multivitamin TABLET 1 TAB PO (09:21)
[2023-12-27] MEDS: Vitamin E (Dl,Tocopheryl Acet) 180 MG (400 UNIT) CAPSULE PO (09:22)
[2023-12-27] MEDS: amLODIPine Besylate 10 MG TABLET PO (09:23)
[2023-12-27] MEDS: Metoprolol Tartrate 50 MG TABLET PO ×2 (09:24→21:32)
--- NOTE | 2023-12-27 17:54 | P.PNPSI_ITS ---
Subjective Subjective Date of Service: 12/27/23 Reason For Visit: esdras Interim History: Pt seen, reviewed with team Refusing of mariza connell Castro changed to Cierra to improve compliance which she accepted today Talked today about living in [place] for 55 years. Wanting to return home as soon as she can. Interactive, expressive, with humor and wit. Several things she appears not to understand about needing current care. Medication Compliance: Intermittent Side effects from medications: No Attending Groups: No Review of Systems Acute medical concerns: No Medical Review of Systems: unchanged Review of Systems Review of Systems Yes all other systems are reviewed and are negative (pt denies today.) Mental Status Exam Mental Status Exam Patient Appearance: Fatigued Patient Orientation: Person and Place Level of Consciousness: Alert Patient Behavior: Talkative and Good Eye Contact Mood Description: Constricted Affect Description: Constricted Patient Cognition Impaired: No Ability to Follow Directions: Good Speech Pattern: Spontaneous Speech Memory Description: Remote Impaired Hallucinations: None Delusions: Paranoid Ideation (??) Perceptual Disturbances: Depersonalization Thought Process: Rumination Thought Content: positive for Circumstantial and positive for Suicidal Ideation (denies) Depressive Symptoms: Increased Irritability Judgement: Fair Diagnostics Vital Signs (24Hr): Vital Signs - 24 hr 12/26/23 19:50 12/27/23 08:00 Temperature 97.4 F 98.1 F Pulse Rate 75 81 Respiratory Rate 16 18 Blood Pressure 156/70 H 139/67 Pulse Oximetry 96 99 Oxygen Delivery Method Room Air Room Air BMI result Body Mass Index 26.3 Labs 12/22/23 11:51 Medications Medications Current Medications Acetaminophen (Acetaminophen 325 Mg Tablet) 650 mg PO Q6H PRN PRN Reason: Pain, Mild (Pain Scale 1-3) Al Hydroxide/Mg Hydroxide (Magnesium Hydrox/Alum Hydrox 30 Ml Oral.Susp) 30 ml PO Q6H PRN PRN Reason: Heartburn/Nausea Last Admin: 12/26/23 18:56 Dose: 30 ml Amlodipine Besylate (Amlodipine Besylate 10 Mg Tablet) 10 mg PO DAILY [facility]; Protocol Last Admin: 12/27/23 09:23 Dose: 10 mg Aripiprazole (Aripiprazole 5 Mg Tablet) 5 mg PO DAILY [facility] Last Admin: 12/27/23 11:21 Dose: Not Given Atorvastatin Calcium (Atorvastatin Calcium 20 Mg Tablet) 20 mg PO BEDTIME [facility] Last Admin: 12/26/23 21:27 Dose: 20 mg Duloxetine HCl (Duloxetine Hcl 60 Mg Capsule.Dr) 60 mg PO DAILY [facility] Last Admin: 12/27/23 11:22 Dose: Not Given Enoxaparin Sodium (Enoxaparin Sodium 40 Mg/0.4 Ml Syringe) 40 mg SUBCUT Q24H [facility] Last Admin: 12/26/23 21:24 Dose: Not Given Fluphenazine Decanoate (Fluphenazine Decanoate 25 Mg/Ml 5 Ml Vial) 25 mg IM Q28D [facility] Magnesium Hydroxide (Milk Of Magnesia 30 Ml Oral.Susp) 30 ml PO DAILY PRN PRN Reason: Constipation Metoprolol Tartrate (Metoprolol Tartrate 50 Mg Tablet) 50 mg PO BID [facility]; Protocol Last Admin: 12/27/23 09:24 Dose: 50 mg Multivitamins/Vitamin C (Multivitamin Tablet) 1 tab PO DAILY [facility] Last Admin: 12/27/23 09:21 Dose: 1 tab Senna (Sennosides 8.6 Mg Tablet) 17.2 mg PO BEDTIME PRN PRN Reason: Constipation Senna (Sennosides 8.6 Mg Tablet) 8.6 mg PO BEDTIME PRN PRN Reason: Constipation Trazodone HCl (Trazodone Hcl 50 Mg Tablet) 50 mg PO BEDTIME PRN PRN Reason: Insomnia Last Admin: 12/26/23 21:27 Dose: 50 mg Valproic Acid (Valproic Acid (As Sodium Salt) 250 Mg/5 Ml Solution) 750 mg PO BID [facility] Vitamin E (Vitamin E (Dl,Tocopheryl Acet) 180 Mg (400 Unit) Capsule) 180 mg PO DAILY [facility] Last Admin: 12/27/23 09:22 Dose: 180 mg Allergies Allergies Allergy/AdvReac Type Severity Reaction Status Date / Time No Known Allergies Allergy Verified 12/14/23 12:31 Assessment & Plan Assessment & Plan (1) Bipolar disorder with severe esdras: Status: Acute Code(s): F31.13 - Bipolar disorder, current episode manic without psychotic features, severe Plan Mrs. Bob is a 83 year-old woman with hx of bipolar. She was started on depakote, continued on fluphenazine. currently declining oral medications. 12/25 continue tx. 12/26 continue tx. 12/27 Continue tx. Reason for continued inpatient stay Substantial Risk for: rapid decompensation Time Spent With Patient Time: Total time managing care of this patient today ____ minutes.
[2023-12-27 20:10] VITALS: BP 171/94; PULSE 75; RESP 16; TEMP 36.4; O2SAT 99
[2023-12-27] MEDS: Atorvastatin Calcium 20 MG TABLET PO (21:32)
[2023-12-27] MEDS: traZODone HCL 50 MG TABLET PO (21:32)
[2023-12-28 08:42] VITALS: BP 140/71; PULSE 83; RESP 17; TEMP 36.4; O2SAT 96
--- NOTE | 2023-12-28 08:46 | P.PNPSI_ITS ---
Subjective Subjective Date of Service: 12/28/23 Reason For Visit: esdras Subjective Notes: Conditional Voluntary Interim History: Pt slept most of the night. Her speech is much more coherent and linear. She still suspicious of her and declines seeing him. She also intermittently declines medications. She denies SI/HI. She has been visible. She continues to be on wheelchair, not participating in PT. Family meeting held with son and - similar episodes in the past, slowly getting better. Less expansive mood. Still not at baseline but close. Medication Compliance: Intermittent Review of Systems Review of Systems Yes all other systems are reviewed and are negative (pt denies today.) Mental Status Exam Mental Status Exam Narrative: Appearance: wearing hospital gown, fair hygiene, in NAD Behavior: somewhat guarded Speech: more clear, less hyperverbal, regular tone, spontaneous TP: more coherent and logical Affect: expansive, AH/VH: appears internally preoccupied, Delusions: some suspiciousness about medications, more disinhibited Insight/judgment: impaired x 2 Diagnostics Vital Signs (24Hr): Vital Signs - 24 hr 12/27/23 20:10 12/28/23 08:42 Temperature 97.6 F 97.6 F Pulse Rate 75 83 Respiratory Rate 16 17 Blood Pressure 171/94 H 140/71 H Pulse Oximetry 99 96 Oxygen Delivery Method Room Air Room Air BMI result Body Mass Index 26.3 Labs 12/22/23 11:51 Medications Medications Current Medications Acetaminophen (Acetaminophen 325 Mg Tablet) 650 mg PO Q6H PRN PRN Reason: Pain, Mild (Pain Scale 1-3) Al Hydroxide/Mg Hydroxide (Magnesium Hydrox/Alum Hydrox 30 Ml Oral.Susp) 30 ml PO Q6H PRN PRN Reason: Heartburn/Nausea Last Admin: 12/26/23 18:56 Dose: 30 ml Amlodipine Besylate (Amlodipine Besylate 10 Mg Tablet) 10 mg PO DAILY [facility]; Protocol Last Admin: 12/27/23 09:23 Dose: 10 mg Aripiprazole (Aripiprazole 5 Mg Tablet) 5 mg PO DAILY [facility] Last Admin: 12/27/23 11:21 Dose: Not Given Atorvastatin Calcium (Atorvastatin Calcium 20 Mg Tablet) 20 mg PO BEDTIME [facility] Last Admin: 12/27/23 21:32 Dose: 20 mg Duloxetine HCl (Duloxetine Hcl 60 Mg Capsule.) 60 mg PO DAILY [facility] Last Admin: 12/27/23 11:22 Dose: Not Given Enoxaparin Sodium (Enoxaparin Sodium 40 Mg/0.4 Ml Syringe) 40 mg SUBCUT Q24H [facility] Last Admin: 12/27/23 21:37 Dose: Not Given Fluphenazine Decanoate (Fluphenazine Decanoate 25 Mg/Ml 5 Ml Vial) 25 mg IM Q28D [facility] Magnesium Hydroxide (Milk Of Magnesia 30 Ml Oral.Susp) 30 ml PO DAILY PRN PRN Reason: Constipation Metoprolol Tartrate (Metoprolol Tartrate 50 Mg Tablet) 50 mg PO BID [facility]; Protocol Last Admin: 12/27/23 21:32 Dose: 50 mg Multivitamins/Vitamin C (Multivitamin Tablet) 1 tab PO DAILY [facility] Last Admin: 12/27/23 09:21 Dose: 1 tab Senna (Sennosides 8.6 Mg Tablet) 17.2 mg PO BEDTIME PRN PRN Reason: Constipation Senna (Sennosides 8.6 Mg Tablet) 8.6 mg PO BEDTIME PRN PRN Reason: Constipation Trazodone HCl (Trazodone Hcl 50 Mg Tablet) 50 mg PO BEDTIME PRN PRN Reason: Insomnia Last Admin: 12/27/23 21:32 Dose: 50 mg Valproic Acid (Valproic Acid (As Sodium Salt) 250 Mg/5 Ml Solution) 750 mg PO BID [facility] Last Admin: 12/27/23 21:32 Dose: 750 mg Vitamin E (Vitamin E (Dl,Tocopheryl Acet) 180 Mg (400 Unit) Capsule) 180 mg PO DAILY [facility] Last Admin: 12/27/23 09:22 Dose: 180 mg Allergies Allergies Allergy/AdvReac Type Severity Reaction Status Date / Time No Known Allergies Allergy Verified 12/14/23 12:31 Assessment & Plan Assessment & Plan (1) Bipolar disorder with severe esdras: Status: Acute Code(s): F31.13 - Bipolar disorder, current episode manic without psychotic features, severe Plan Mrs. Bob is a 83 year-old woman with hx of bipolar. She was started on depakote, continued on fluphenazine. currently declining oral medications. 12/25 continue tx. 12/26 continue tx. 12/27 Continue tx. 12/28 continue tx. Reason for continued inpatient stay Substantial Risk for: inability to function Time Spent With Patient Time: Total time managing care of this patient today ____ minutes.
[2023-12-28] MEDS: amLODIPine Besylate 10 MG TABLET PO (09:15)
[2023-12-28] MEDS: Metoprolol Tartrate 50 MG TABLET PO ×2 (09:15→21:48)
[2023-12-28] MEDS: Vitamin E (Dl,Tocopheryl Acet) 180 MG (400 UNIT) CAPSULE PO (09:56)
[2023-12-28] MEDS: ARIPiprazole 5 MG TABLET PO (10:17)
[2023-12-28] MEDS: DULoxetine HCl 60 MG CAPSULE.DR PO (10:25)
[2023-12-28 18:00] VITALS: BP 143/76; PULSE 84; RESP 16; TEMP 36.1; O2SAT 98
[2023-12-28] MEDS: Atorvastatin Calcium 20 MG TABLET PO (21:48)
[2023-12-28] MEDS: traZODone HCL 50 MG TABLET PO (21:48)
[2023-12-29 08:38] VITALS: BP 147/65; PULSE 81; RESP 16; TEMP 36.4; O2SAT 97
--- NOTE | 2023-12-29 09:08 | HO.PSYCHPN ---
Subjective Subjective Date of Service: 12/29/23 Reason For Visit: esdras Subjective Notes: Conditional Voluntary Interim History: Pt slept most of the night. She presents as less labile, still with poor boundaries with males. She denies SI/HI. She continues to report mistrust towards ex- who lives with her. resistant to work with PT. still on wheelchair. She has been more consistent taking medications. Medication Compliance: Yes Review of Systems Review of Systems Yes all other systems are reviewed and are negative (pt denies today.) Mental Status Exam Mental Status Exam Narrative: Appearance: wearing hospital gown, fair hygiene, in NAD Behavior: somewhat guarded Speech: more clear, less hyperverbal, regular tone, spontaneous TP: more coherent and logical Affect: expansive, AH/VH: appears internally preoccupied, Delusions: some suspiciousness about medications, more disinhibited Insight/judgment: impaired x 2 Diagnostics Vital Signs (24Hr): Vital Signs - 24 hr 12/28/23 18:00 12/29/23 08:38 Temperature 97 F 97.5 F Pulse Rate 84 81 Respiratory Rate 16 16 Blood Pressure 143/76 H 147/65 H Pulse Oximetry 98 97 Oxygen Delivery Method Room Air Room Air BMI result Body Mass Index 26.3 Labs 12/22/23 11:51 Medications Medications Current Medications Acetaminophen (Acetaminophen 325 Mg Tablet) 650 mg PO Q6H PRN PRN Reason: Pain, Mild (Pain Scale 1-3) Al Hydroxide/Mg Hydroxide (Magnesium Hydrox/Alum Hydrox 30 Ml Oral.Susp) 30 ml PO Q6H PRN PRN Reason: Heartburn/Nausea Last Admin: 12/26/23 18:56 Dose: 30 ml Amlodipine Besylate (Amlodipine Besylate 10 Mg Tablet) 10 mg PO DAILY [facility]; Protocol Last Admin: 12/28/23 09:15 Dose: 10 mg Atorvastatin Calcium (Atorvastatin Calcium 20 Mg Tablet) 20 mg PO BEDTIME [facility] Last Admin: 12/28/23 21:48 Dose: 20 mg Duloxetine HCl (Duloxetine Hcl 60 Mg Capsule.Dr) 60 mg PO DAILY [facility] Last Admin: 12/28/23 10:25 Dose: 60 mg Enoxaparin Sodium (Enoxaparin Sodium 40 Mg/0.4 Ml Syringe) 40 mg SUBCUT Q24H [facility] Last Admin: 12/28/23 21:50 Dose: Not Given Fluphenazine Decanoate (Fluphenazine Decanoate 25 Mg/Ml 5 Ml Vial) 25 mg IM Q28D [facility] Magnesium Hydroxide (Milk Of Magnesia 30 Ml Oral.Susp) 30 ml PO DAILY PRN PRN Reason: Constipation Metoprolol Tartrate (Metoprolol Tartrate 50 Mg Tablet) 50 mg PO BID [facility]; Protocol Last Admin: 12/28/23 21:48 Dose: 50 mg Multivitamins/Vitamin C (Multivitamin Tablet) 1 tab PO DAILY [facility] Last Admin: 12/28/23 10:39 Dose: Not Given Senna (Sennosides 8.6 Mg Tablet) 17.2 mg PO BEDTIME PRN PRN Reason: Constipation Senna (Sennosides 8.6 Mg Tablet) 8.6 mg PO BEDTIME PRN PRN Reason: Constipation Trazodone HCl (Trazodone Hcl 50 Mg Tablet) 50 mg PO BEDTIME PRN PRN Reason: Insomnia Last Admin: 12/28/23 21:48 Dose: 50 mg Valproic Acid (Valproic Acid (As Sodium Salt) 250 Mg/5 Ml Solution) 750 mg PO BID [facility] Last Admin: 12/28/23 21:56 Dose: 750 mg Vitamin E (Vitamin E (Dl,Tocopheryl Acet) 180 Mg (400 Unit) Capsule) 180 mg PO DAILY [facility] Last Admin: 12/28/23 09:56 Dose: 180 mg Allergies Allergies Allergy/AdvReac Type Severity Reaction Status Date / Time No Known Allergies Allergy Verified 12/14/23 12:31 Assessment & Plan Assessment & Plan (1) Bipolar disorder with severe esdras: Status: Resolved Code(s): F31.13 - Bipolar disorder, current episode manic without psychotic features, severe Plan Mrs. Bob is a 83 year-old woman with hx of bipolar. She was started on depakote, continued on fluphenazine. currently declining oral medications. 12/25 continue tx. 12/26 continue tx. 12/27 Continue tx. 12/28 continue tx. 12/29 continue tx. Reason for continued inpatient stay Substantial Risk for: inability to function Time Spent With Patient Time: Total time managing care of this patient today ____ minutes.
[2023-12-29] MEDS: Metoprolol Tartrate 50 MG TABLET PO ×2 (09:18→20:09)
[2023-12-29] MEDS: amLODIPine Besylate 10 MG TABLET PO (09:20)
[2023-12-29] MEDS: Vitamin E (Dl,Tocopheryl Acet) 180 MG (400 UNIT) CAPSULE PO (09:24)
[2023-12-29] MEDS: DULoxetine HCl 60 MG CAPSULE.DR PO (09:30)
[2023-12-29] MEDS: Multivitamin TABLET 1 TAB PO (09:37)
[2023-12-29 19:35] VITALS: BP 145/94; PULSE 82; RESP 18; TEMP 36.6; O2SAT 98
[2023-12-29] MEDS: traZODone HCL 50 MG TABLET PO (20:09)
[2023-12-29] MEDS: Atorvastatin Calcium 20 MG TABLET PO (20:09)
[2023-12-30 08:00] VITALS: BP 159/65; PULSE 82; RESP 18; TEMP 36.7; O2SAT 98
[2023-12-30 09:02] LABS: Valproate 69.7 mcg/mL (50.0-100.0)
[2023-12-30] MEDS: amLODIPine Besylate 10 MG TABLET PO (09:14)
[2023-12-30] MEDS: Metoprolol Tartrate 50 MG TABLET PO ×2 (09:14→21:14)
[2023-12-30] MEDS: DULoxetine HCl 60 MG CAPSULE.DR PO (09:14)
[2023-12-30] MEDS: Vitamin E (Dl,Tocopheryl Acet) 180 MG (400 UNIT) CAPSULE PO (09:14)
[2023-12-30 10:28] VITALS: BP 145/94; PULSE 61; O2SAT 94
[2023-12-30 18:00] VITALS: BP 158/70; PULSE 79; RESP 18; TEMP 36.8; O2SAT 98
--- NOTE | 2023-12-30 19:31 | P.PNPSI_ITS ---
Subjective Subjective Date of Service: 12/30/23 Reason For Visit: esdras Subjective Notes: Conditional Voluntary Interim History: Pt slept most of the night. Pt amenable to speak with male staff. She reports she would like to go home but also at the same time she reports she feels safer here than at home with her ex-. She states her reminds her that she has mental illness, whereas her son she states understands I am just anxious. Pt taking medications more consistently. She met with PT- cleared from their end to access home services, no need for rehab. Medication Compliance: Yes Review of Systems Review of Systems Yes all other systems are reviewed and are negative (pt denies today.) Mental Status Exam Mental Status Exam Narrative: Appearance: wearing hospital gown, fair hygiene, in NAD Behavior: somewhat guarded Speech: more clear, less hyperverbal, regular tone, spontaneous TP: more coherent and logical Affect: expansive, AH/VH: appears internally preoccupied, Delusions: some suspiciousness about medications, more disinhibited Insight/judgment: impaired x 2 Diagnostics Vital Signs (24Hr): Vital Signs - 24 hr 12/29/23 19:35 12/30/23 08:00 12/30/23 10:28 Temperature 97.9 F 98.1 F Pulse Rate 82 82 61 Respiratory Rate 18 18 Blood Pressure 145/94 H 159/65 H 145/94 H Pulse Oximetry 98 98 94 Oxygen Delivery Method Room Air Room Air BMI result Body Mass Index 26.3 Labs 12/22/23 11:51 Labs: Laboratory Results - last 48 hr 12/30/23 08:41 Valproic Acid 69.7 Medications Medications Current Medications Acetaminophen (Acetaminophen 325 Mg Tablet) 650 mg PO Q6H PRN PRN Reason: Pain, Mild (Pain Scale 1-3) Al Hydroxide/Mg Hydroxide (Magnesium Hydrox/Alum Hydrox 30 Ml Oral.Susp) 30 ml PO Q6H PRN PRN Reason: Heartburn/Nausea Last Admin: 12/26/23 18:56 Dose: 30 ml Amlodipine Besylate (Amlodipine Besylate 10 Mg Tablet) 10 mg PO DAILY [facility]; Protocol Last Admin: 12/30/23 09:14 Dose: 10 mg Atorvastatin Calcium (Atorvastatin Calcium 20 Mg Tablet) 20 mg PO BEDTIME [facility] Last Admin: 12/29/23 20:09 Dose: 20 mg Duloxetine HCl (Duloxetine Hcl 60 Mg Capsule.Dr) 60 mg PO DAILY [facility] Last Admin: 12/30/23 09:14 Dose: 60 mg Fluphenazine Decanoate (Fluphenazine Decanoate 25 Mg/Ml 5 Ml Vial) 25 mg IM Q28D [facility] Magnesium Hydroxide (Milk Of Magnesia 30 Ml Oral.Susp) 30 ml PO DAILY PRN PRN Reason: Constipation Metoprolol Tartrate (Metoprolol Tartrate 50 Mg Tablet) 50 mg PO BID [facility]; Protocol Last Admin: 12/30/23 09:14 Dose: 50 mg Multivitamins/Vitamin C (Multivitamin Tablet) 1 tab PO DAILY [facility] Last Admin: 12/30/23 10:44 Dose: Not Given Senna (Sennosides 8.6 Mg Tablet) 17.2 mg PO BEDTIME PRN PRN Reason: Constipation Senna (Sennosides 8.6 Mg Tablet) 8.6 mg PO BEDTIME PRN PRN Reason: Constipation Trazodone HCl (Trazodone Hcl 50 Mg Tablet) 50 mg PO BEDTIME PRN PRN Reason: Insomnia Last Admin: 12/29/23 20:09 Dose: 50 mg Valproic Acid (Valproic Acid (As Sodium Salt) 250 Mg/5 Ml Solution) 750 mg PO BID [facility] Last Admin: 12/30/23 10:01 Dose: 750 mg Vitamin E (Vitamin E (Dl,Tocopheryl Acet) 180 Mg (400 Unit) Capsule) 180 mg PO DAILY [facility] Last Admin: 12/30/23 09:14 Dose: 180 mg Allergies Allergies Allergy/AdvReac Type Severity Reaction Status Date / Time No Known Allergies Allergy Verified 12/14/23 12:31 Assessment & Plan Assessment & Plan (1) Bipolar disorder with severe esdras: Status: Resolved Code(s): F31.13 - Bipolar disorder, current episode manic without psychotic features, severe Plan Mrs. Bob is a 83 year-old woman with hx of bipolar. She was started on depakote, continued on fluphenazine. currently declining oral medications. 12/25 continue tx. 12/26 continue tx. 12/27 Continue tx. 12/28 continue tx. 12/29 continue tx 12/30 continue tx. plan for d/c 01/05 Reason for continued inpatient stay Substantial Risk for: inability to function Time Spent With Patient Time: Total time managing care of this patient today ____ minutes.
[2023-12-30] MEDS: traZODone HCL 50 MG TABLET PO (21:13)
[2023-12-30] MEDS: Atorvastatin Calcium 20 MG TABLET PO (21:13)
[2023-12-31 07:00] VITALS: BMI 26.1
[2023-12-31 09:45] VITALS: BP 150/70; PULSE 78; RESP 16; TEMP 37.6; O2SAT 99
[2023-12-31] MEDS: Metoprolol Tartrate 50 MG TABLET PO ×2 (10:10→21:53)
[2023-12-31] MEDS: amLODIPine Besylate 10 MG TABLET PO (10:10)
[2023-12-31] MEDS: DULoxetine HCl 60 MG CAPSULE.DR PO (10:10)
[2023-12-31] MEDS: Vitamin E (Dl,Tocopheryl Acet) 180 MG (400 UNIT) CAPSULE PO (10:11)
--- NOTE | 2023-12-31 13:53 | PC.NURSE ---
Pt. alert and oriented X 3. Poor insight into situation. Speech and though content appropriate. Declines walking outside of room, insisting on wheelchair. Visible on unit socializing with peers. Easily compliant with meds, except for multivitamin. Denies anxiety/depression/SI/HI/perceptual disturbances. Declined groups.
--- NOTE | 2023-12-31 15:47 | P.PNPSI_ITS ---
Subjective Subjective Date of Service: 12/31/23 Reason For Visit: esdras Subjective Notes: Conditional Voluntary Interim History: Pt slept most of the night. Pt reports doing well. She continues to use wheelchair, declined walker as recommended by PT. No behavioral concerns NO SI/HI. discussed d/c on 01/05. taking medications consistently Review of Systems Review of Systems Yes all other systems are reviewed and are negative (pt denies today.) Mental Status Exam Mental Status Exam Narrative: Appearance: wearing hospital gown, fair hygiene, in NAD Behavior: somewhat guarded Speech: more clear, regular rate, regular tone, spontaneous TP: more coherent and logical Affect: expansive, AH/VH: none Delusions: some suspiciousness, Insight/judgment: improving x 2 Diagnostics Vital Signs (24Hr): Vital Signs - 24 hr 12/30/23 18:00 12/31/23 09:45 Temperature 98.2 F 99.6 F Pulse Rate 79 78 Respiratory Rate 18 16 Blood Pressure 158/70 H 150/70 H Pulse Oximetry 98 99 Oxygen Delivery Method Room Air Room Air BMI result Body Mass Index 26.1 Labs 12/22/23 11:51 Labs: Laboratory Results - last 48 hr 12/30/23 08:41 Valproic Acid 69.7 Medications Medications Current Medications Acetaminophen (Acetaminophen 325 Mg Tablet) 650 mg PO Q6H PRN PRN Reason: Pain, Mild (Pain Scale 1-3) Al Hydroxide/Mg Hydroxide (Magnesium Hydrox/Alum Hydrox 30 Ml Oral.Susp) 30 ml PO Q6H PRN PRN Reason: Heartburn/Nausea Last Admin: 12/26/23 18:56 Dose: 30 ml Amlodipine Besylate (Amlodipine Besylate 10 Mg Tablet) 10 mg PO DAILY [facility]; Protocol Last Admin: 12/31/23 10:10 Dose: 10 mg Atorvastatin Calcium (Atorvastatin Calcium 20 Mg Tablet) 20 mg PO BEDTIME [facility] Last Admin: 12/30/23 21:13 Dose: 20 mg Duloxetine HCl (Duloxetine Hcl 60 Mg Capsule.Dr) 60 mg PO DAILY [facility] Last Admin: 12/31/23 10:10 Dose: 60 mg Fluphenazine Decanoate (Fluphenazine Decanoate 25 Mg/Ml 5 Ml Vial) 25 mg IM Q28D [facility] Magnesium Hydroxide (Milk Of Magnesia 30 Ml Oral.Susp) 30 ml PO DAILY PRN PRN Reason: Constipation Metoprolol Tartrate (Metoprolol Tartrate 50 Mg Tablet) 50 mg PO BID [facility]; Protocol Last Admin: 12/31/23 10:10 Dose: 50 mg Multivitamins/Vitamin C (Multivitamin Tablet) 1 tab PO DAILY [facility] Last Admin: 12/31/23 10:14 Dose: Not Given Senna (Sennosides 8.6 Mg Tablet) 17.2 mg PO BEDTIME PRN PRN Reason: Constipation Senna (Sennosides 8.6 Mg Tablet) 8.6 mg PO BEDTIME PRN PRN Reason: Constipation Trazodone HCl (Trazodone Hcl 50 Mg Tablet) 50 mg PO BEDTIME PRN PRN Reason: Insomnia Last Admin: 12/30/23 21:13 Dose: 50 mg Valproic Acid (Valproic Acid (As Sodium Salt) 250 Mg/5 Ml Solution) 750 mg PO BID [facility] Last Admin: 12/31/23 10:09 Dose: 750 mg Vitamin E (Vitamin E (Dl,Tocopheryl Acet) 180 Mg (400 Unit) Capsule) 180 mg PO DAILY [facility] Last Admin: 12/31/23 10:11 Dose: 180 mg Allergies Allergies Allergy/AdvReac Type Severity Reaction Status Date / Time No Known Allergies Allergy Verified 12/14/23 12:31 Assessment & Plan Assessment & Plan (1) Bipolar disorder with severe esdras: Status: Resolved Code(s): F31.13 - Bipolar disorder, current episode manic without psychotic features, severe Plan Mrs. Bob is a 83 year-old woman with hx of bipolar. She was started on depakote, continued on fluphenazine. currently declining oral medications. 12/25 continue tx. 12/26 continue tx. 12/27 Continue tx. 12/28 continue tx. 12/29 continue tx 12/30 continue tx. plan for d/c 01/05 12/31 continue tx. will check depakote level tomorrow morning Reason for continued inpatient stay Substantial Risk for: inability to function Time Spent With Patient Time: Total time managing care of this patient today ____ minutes.
[2023-12-31 21:43] VITALS: BP 139/66; PULSE 75; RESP 17; TEMP 37.2; O2SAT 100
[2023-12-31] MEDS: traZODone HCL 50 MG TABLET PO (21:53)
[2023-12-31] MEDS: Atorvastatin Calcium 20 MG TABLET PO (21:54)
[2024-01-01 08:39] VITALS: BP 139/63; PULSE 74; RESP 16; TEMP 36.6; O2SAT 97
--- NOTE | 2024-01-01 09:07 | P.PNPSI_ITS ---
Subjective Subjective Date of Service: 01/01/24 Reason For Visit: esdras Subjective Notes: Conditional Voluntary Interim History: Pt slept most of the night. Pt reports she is doing well here. She also reports she is looking forward to return home. She is taking medications as prescribed. depakote level today 74. No SI/HI. behavior much more organized. She has been visible, reluctant at times to ambulate with walker. Review of Systems Review of Systems Yes all other systems are reviewed and are negative (pt denies today.) Mental Status Exam Mental Status Exam Narrative: Appearance: wearing hospital gown, fair hygiene, in NAD Behavior: somewhat guarded Speech: more clear, regular rate, regular tone, spontaneous TP: more coherent and logical Affect: expansive, AH/VH: none Delusions: some suspiciousness, Insight/judgment: improving x 2 Diagnostics Vital Signs (24Hr): Vital Signs - 24 hr 12/31/23 09:45 12/31/23 21:43 01/01/24 08:39 Temperature 99.6 F 99.0 F 98 F Pulse Rate 78 75 74 Respiratory Rate 16 17 16 Blood Pressure 150/70 H 139/66 139/63 Pulse Oximetry 99 100 97 Oxygen Delivery Method Room Air Room Air Room Air BMI result Body Mass Index 26.1 Labs 12/22/23 11:51 Labs: Laboratory Results - last 48 hr 01/01/24 07:32 Valproic Acid 74.0 Medications Medications Current Medications Acetaminophen (Acetaminophen 325 Mg Tablet) 650 mg PO Q6H PRN PRN Reason: Pain, Mild (Pain Scale 1-3) Al Hydroxide/Mg Hydroxide (Magnesium Hydrox/Alum Hydrox 30 Ml Oral.Susp) 30 ml PO Q6H PRN PRN Reason: Heartburn/Nausea Last Admin: 12/26/23 18:56 Dose: 30 ml Amlodipine Besylate (Amlodipine Besylate 10 Mg Tablet) 10 mg PO DAILY [facility]; Protocol Last Admin: 12/31/23 10:10 Dose: 10 mg Atorvastatin Calcium (Atorvastatin Calcium 20 Mg Tablet) 20 mg PO BEDTIME [facility] Last Admin: 12/31/23 21:54 Dose: 20 mg Duloxetine HCl (Duloxetine Hcl 60 Mg Capsule.Dr) 60 mg PO DAILY [facility] Last Admin: 12/31/23 10:10 Dose: 60 mg Fluphenazine Decanoate (Fluphenazine Decanoate 25 Mg/Ml 5 Ml Vial) 25 mg IM Q28D [facility] Magnesium Hydroxide (Milk Of Magnesia 30 Ml Oral.Susp) 30 ml PO DAILY PRN PRN Reason: Constipation Metoprolol Tartrate (Metoprolol Tartrate 50 Mg Tablet) 50 mg PO BID [facility]; Protocol Last Admin: 12/31/23 21:53 Dose: 50 mg Multivitamins/Vitamin C (Multivitamin Tablet) 1 tab PO DAILY [facility] Last Admin: 12/31/23 10:14 Dose: Not Given Senna (Sennosides 8.6 Mg Tablet) 17.2 mg PO BEDTIME PRN PRN Reason: Constipation Senna (Sennosides 8.6 Mg Tablet) 8.6 mg PO BEDTIME PRN PRN Reason: Constipation Trazodone HCl (Trazodone Hcl 50 Mg Tablet) 50 mg PO BEDTIME PRN PRN Reason: Insomnia Last Admin: 12/31/23 21:53 Dose: 50 mg Valproic Acid (Valproic Acid (As Sodium Salt) 250 Mg/5 Ml Solution) 750 mg PO BID [facility] Last Admin: 12/31/23 21:54 Dose: 750 mg Vitamin E (Vitamin E (Dl,Tocopheryl Acet) 180 Mg (400 Unit) Capsule) 180 mg PO DAILY [facility] Last Admin: 12/31/23 10:11 Dose: 180 mg Allergies Allergies Allergy/AdvReac Type Severity Reaction Status Date / Time No Known Allergies Allergy Verified 12/14/23 12:31 Assessment & Plan Assessment & Plan (1) Bipolar disorder with severe esdras: Status: Resolved Code(s): F31.13 - Bipolar disorder, current episode manic without psychotic features, severe Plan Mrs. Bob is a 83 year-old woman with hx of bipolar. She was started on depakote, continued on fluphenazine. currently declining oral medications. 12/25 continue tx. 12/26 continue tx. 12/27 Continue tx. 12/28 continue tx. 12/29 continue tx 12/30 continue tx. plan for d/c 01/05 12/31 continue tx. will check depakote level tomorrow morning 01/01 continue tx. plan for d/c 01/04. Reason for continued inpatient stay Substantial Risk for: inability to function Time Spent With Patient Time: Total time managing care of this patient today ____ minutes.
[2024-01-01] MEDS: DULoxetine HCl 60 MG CAPSULE.DR PO (09:51)
[2024-01-01] MEDS: Metoprolol Tartrate 50 MG TABLET PO ×2 (09:51→20:54)
[2024-01-01] MEDS: amLODIPine Besylate 10 MG TABLET PO (09:51)
[2024-01-01] MEDS: Vitamin E (Dl,Tocopheryl Acet) 180 MG (400 UNIT) CAPSULE PO (09:51)
[2024-01-01 20:53] VITALS: BP 151/65; PULSE 77; RESP 16; TEMP 36.8; O2SAT 96
[2024-01-01] MEDS: Atorvastatin Calcium 20 MG TABLET PO (20:54)
[2024-01-02 08:16] VITALS: BP 152/70; PULSE 76; RESP 17; TEMP 36.6; O2SAT 98
[2024-01-02] MEDS: Metoprolol Tartrate 50 MG TABLET PO ×2 (09:48→21:03)
[2024-01-02] MEDS: amLODIPine Besylate 10 MG TABLET PO (09:50)
[2024-01-02] MEDS: Vitamin E (Dl,Tocopheryl Acet) 180 MG (400 UNIT) CAPSULE PO (09:52)
[2024-01-02] MEDS: DULoxetine HCl 60 MG CAPSULE.DR PO (09:54)
[2024-01-02] MEDS: Multivitamin TABLET 1 TAB PO (09:56)
[2024-01-02] MEDS: diphenhydrAMINE HCl 2 % Cream 28 GM TUBE 1 APPL TOPICAL ×2 (15:03→21:12)
--- NOTE | 2024-01-02 17:19 | HO.PSYCHPN ---
Subjective Subjective Date of Service: 01/02/24 Reason For Visit: esdras Subjective Notes: Conditional Voluntary Interim History: Pt slept most of the night. Pt has been taking her medications consistently. Her thought process is much more organized. She is visible on the unit, social with select peers. Not consistent with recommendation to ambulate with walker. She prefers to be wheeled out of her room and around the unit. She denies SI/HI. no behavioral concerns. Medication Compliance: Yes Review of Systems Review of Systems Yes all other systems are reviewed and are negative (pt denies today.) Mental Status Exam Mental Status Exam Narrative: Appearance: wearing hospital gown, fair hygiene, in NAD Behavior: somewhat guarded Speech: more clear, regular rate, regular tone, spontaneous TP: more coherent and logical Affect: expansive, AH/VH: none Delusions: some suspiciousness, Insight/judgment: improving x 2 Diagnostics Vital Signs (24Hr): Vital Signs - 24 hr 01/01/24 20:53 01/02/24 08:16 Temperature 98.2 F 97.9 F Pulse Rate 77 76 Respiratory Rate 16 17 Blood Pressure 151/65 H 152/70 H Pulse Oximetry 96 98 Oxygen Delivery Method Room Air Room Air BMI result Body Mass Index 26.1 Labs 12/22/23 11:51 Labs: Laboratory Results - last 48 hr 01/01/24 07:32 Valproic Acid 74.0 Medications Medications Current Medications Acetaminophen (Acetaminophen 325 Mg Tablet) 650 mg PO Q6H PRN PRN Reason: Pain, Mild (Pain Scale 1-3) Al Hydroxide/Mg Hydroxide (Magnesium Hydrox/Alum Hydrox 30 Ml Oral.Susp) 30 ml PO Q6H PRN PRN Reason: Heartburn/Nausea Last Admin: 12/26/23 18:56 Dose: 30 ml Amlodipine Besylate (Amlodipine Besylate 10 Mg Tablet) 10 mg PO DAILY [facility]; Protocol Last Admin: 01/02/24 09:50 Dose: 10 mg Atorvastatin Calcium (Atorvastatin Calcium 20 Mg Tablet) 20 mg PO BEDTIME [facility] Last Admin: 01/01/24 20:54 Dose: 20 mg Duloxetine HCl (Duloxetine Hcl 60 Mg Capsule.Dr) 60 mg PO DAILY [facility] Last Admin: 01/02/24 09:54 Dose: 60 mg Fluphenazine Decanoate (Fluphenazine Decanoate 25 Mg/Ml 5 Ml Vial) 25 mg IM Q28D [facility] Magnesium Hydroxide (Milk Of Magnesia 30 Ml Oral.Susp) 30 ml PO DAILY PRN PRN Reason: Constipation Metoprolol Tartrate (Metoprolol Tartrate 50 Mg Tablet) 50 mg PO BID [facility]; Protocol Last Admin: 01/02/24 09:48 Dose: 50 mg Multivitamins/Vitamin C (Multivitamin Tablet) 1 tab PO DAILY [facility] Last Admin: 01/02/24 09:56 Dose: 1 tab Senna (Sennosides 8.6 Mg Tablet) 17.2 mg PO BEDTIME PRN PRN Reason: Constipation Senna (Sennosides 8.6 Mg Tablet) 8.6 mg PO BEDTIME PRN PRN Reason: Constipation Trazodone HCl (Trazodone Hcl 50 Mg Tablet) 50 mg PO BEDTIME PRN PRN Reason: Insomnia Last Admin: 12/31/23 21:53 Dose: 50 mg Valproic Acid (Valproic Acid (As Sodium Salt) 250 Mg/5 Ml Solution) 750 mg PO BID [facility] Last Admin: 01/02/24 09:58 Dose: 750 mg Vitamin E (Vitamin E (Dl,Tocopheryl Acet) 180 Mg (400 Unit) Capsule) 180 mg PO DAILY [facility] Last Admin: 01/02/24 09:52 Dose: 180 mg Zinc Acetate/Diphenhydramine (Diphenhydramine Hcl 2 % Cream 28 Gm Tube) 1 appl TOPICAL BID [facility]; Protocol Last Admin: 01/02/24 15:03 Dose: 1 appl Allergies Allergies Allergy/AdvReac Type Severity Reaction Status Date / Time No Known Allergies Allergy Verified 12/14/23 12:31 Assessment & Plan Assessment & Plan (1) Bipolar disorder with severe esdras: Status: Resolved Code(s): F31.13 - Bipolar disorder, current episode manic without psychotic features, severe Plan Mrs. Bob is a 83 year-old woman with hx of bipolar. She was started on depakote, continued on fluphenazine. currently declining oral medications. 12/25 continue tx. 12/26 continue tx. 12/27 Continue tx. 12/28 continue tx. 12/29 continue tx 12/30 continue tx. plan for d/c 01/05 12/31 continue tx. will check depakote level tomorrow morning 01/01 continue tx. plan for d/c 01/04. 01/02 continue tx. Reason for continued inpatient stay Substantial Risk for: inability to function Time Spent With Patient Time: Total time managing care of this patient today ____ minutes.
[2024-01-02 20:00] VITALS: BP 133/60; PULSE 76; RESP 18; TEMP 36.8; O2SAT 98
[2024-01-02] MEDS: Atorvastatin Calcium 20 MG TABLET PO (21:03)
[2024-01-03 09:30] VITALS: BP 163/70; PULSE 82; RESP 17; TEMP 36.9; O2SAT 97
[2024-01-03] MEDS: Metoprolol Tartrate 50 MG TABLET PO ×2 (09:33→20:40)
[2024-01-03] MEDS: amLODIPine Besylate 10 MG TABLET PO (09:34)
[2024-01-03] MEDS: diphenhydrAMINE HCl 2 % Cream 28 GM TUBE 1 APPL TOPICAL ×2 (09:35→20:40)
[2024-01-03] MEDS: Vitamin E (Dl,Tocopheryl Acet) 180 MG (400 UNIT) CAPSULE PO (09:35)
[2024-01-03] MEDS: DULoxetine HCl 60 MG CAPSULE.DR PO (09:36)
--- NOTE | 2024-01-03 15:31 | HO.PSYCHPN ---
Subjective Subjective Date of Service: 01/03/24 Reason For Visit: esdras Subjective Notes: Conditional Voluntary Interim History: Pt slept most of the night. Pt has been taking her medications consistently. Her thought process is much more organized. She is visible on the unit, social with select peers. Not consistent with recommendation to ambulate with walker. She prefers to be wheeled out of her room and around the unit. She denies SI/HI. no behavioral concerns. VS stable. She does have bilat LE edema- mild rash, which pt reports itchiness. ordered compression stockings and advised to lift legs up. Review of Systems Review of Systems Yes all other systems are reviewed and are negative (pt denies today.) Mental Status Exam Mental Status Exam Narrative: Appearance: wearing hospital gown, fair hygiene, in NAD Behavior: somewhat guarded Speech: more clear, regular rate, regular tone, spontaneous TP: more coherent and logical Affect: expansive, AH/VH: none Delusions: some suspiciousness, Insight/judgment: improving x 2 Diagnostics Vital Signs (24Hr): Vital Signs - 24 hr 01/02/24 20:00 01/03/24 09:30 Temperature 98.2 F 98.4 F Pulse Rate 76 82 Respiratory Rate 18 17 Blood Pressure 133/60 163/70 H Pulse Oximetry 98 97 Oxygen Delivery Method Room Air Room Air BMI result Body Mass Index 26.1 Labs 12/22/23 11:51 Medications Medications Current Medications Acetaminophen (Acetaminophen 325 Mg Tablet) 650 mg PO Q6H PRN PRN Reason: Pain, Mild (Pain Scale 1-3) Al Hydroxide/Mg Hydroxide (Magnesium Hydrox/Alum Hydrox 30 Ml Oral.Susp) 30 ml PO Q6H PRN PRN Reason: Heartburn/Nausea Last Admin: 12/26/23 18:56 Dose: 30 ml Amlodipine Besylate (Amlodipine Besylate 10 Mg Tablet) 10 mg PO DAILY [facility]; Protocol Last Admin: 01/03/24 09:34 Dose: 10 mg Atorvastatin Calcium (Atorvastatin Calcium 20 Mg Tablet) 20 mg PO BEDTIME [facility] Last Admin: 01/02/24 21:03 Dose: 20 mg Duloxetine HCl (Duloxetine Hcl 60 Mg Capsule.) 60 mg PO DAILY [facility] Last Admin: 01/03/24 09:36 Dose: 60 mg Fluphenazine Decanoate (Fluphenazine Decanoate 25 Mg/Ml 5 Ml Vial) 25 mg IM Q28D [facility] Magnesium Hydroxide (Milk Of Magnesia 30 Ml Oral.Susp) 30 ml PO DAILY PRN PRN Reason: Constipation Metoprolol Tartrate (Metoprolol Tartrate 50 Mg Tablet) 50 mg PO BID [facility]; Protocol Last Admin: 01/03/24 09:33 Dose: 50 mg Multivitamins/Vitamin C (Multivitamin Tablet) 1 tab PO DAILY [facility] Last Admin: 01/03/24 09:39 Dose: Not Given Senna (Sennosides 8.6 Mg Tablet) 17.2 mg PO BEDTIME PRN PRN Reason: Constipation Senna (Sennosides 8.6 Mg Tablet) 8.6 mg PO BEDTIME PRN PRN Reason: Constipation Trazodone HCl (Trazodone Hcl 50 Mg Tablet) 50 mg PO BEDTIME PRN PRN Reason: Insomnia Last Admin: 12/31/23 21:53 Dose: 50 mg Valproic Acid (Valproic Acid (As Sodium Salt) 250 Mg/5 Ml Solution) 750 mg PO BID [facility] Last Admin: 01/03/24 09:38 Dose: 750 mg Vitamin E (Vitamin E (Dl,Tocopheryl Acet) 180 Mg (400 Unit) Capsule) 180 mg PO DAILY [facility] Last Admin: 01/03/24 09:35 Dose: 180 mg Zinc Acetate/Diphenhydramine (Diphenhydramine Hcl 2 % Cream 28 Gm Tube) 1 appl TOPICAL BID [facility]; Protocol Last Admin: 01/03/24 09:35 Dose: 1 appl Allergies Allergies Allergy/AdvReac Type Severity Reaction Status Date / Time No Known Allergies Allergy Verified 12/14/23 12:31 Assessment & Plan Assessment & Plan (1) Bipolar disorder with severe esdras: Status: Resolved Code(s): F31.13 - Bipolar disorder, current episode manic without psychotic features, severe Plan Mrs. Bob is a 83 year-old woman with hx of bipolar. She was started on depakote, continued on fluphenazine. currently declining oral medications. 12/25 continue tx. 12/26 continue tx. 12/27 Continue tx. 12/28 continue tx. 12/29 continue tx 12/30 continue tx. plan for d/c 01/05 12/31 continue tx. will check depakote level tomorrow morning 01/01 continue tx. plan for d/c 01/04. 01/02 continue tx 01/03 ordered hydrocortisone ointment for feet- she does have bilat LE edema, compression stockings ordered, advised to lift legs up. plan for dc tomorrow. Reason for continued inpatient stay Substantial Risk for: stable for discharge Time Spent With Patient Time: Total time managing care of this patient today ____ minutes.
[2024-01-03 18:00] VITALS: BP 121/65; PULSE 68; RESP 16; TEMP 36.2; O2SAT 95
[2024-01-03] MEDS: Atorvastatin Calcium 20 MG TABLET PO (20:40)
[2024-01-04 08:00] VITALS: BP 153/71; PULSE 74; RESP 18; TEMP 36.4; O2SAT 97
[2024-01-04] MEDS: DULoxetine HCl 60 MG CAPSULE.DR PO (08:39)
[2024-01-04] MEDS: Vitamin E (Dl,Tocopheryl Acet) 180 MG (400 UNIT) CAPSULE PO (08:39)
[2024-01-04] MEDS: Multivitamin TABLET 1 TAB PO (08:39)
[2024-01-04] MEDS: amLODIPine Besylate 10 MG TABLET PO (08:39)
[2024-01-04] MEDS: Metoprolol Tartrate 50 MG TABLET PO (08:39)
--- NOTE | 2024-01-04 08:43 | PM.PSYDC ---
DS: Providers Provider Date of Service: 01/04/24 Date of admission: 12/22/23 14:28 Date of discharge: 01/04/24 Primary care physician: Unknown Physician DS: Diagnosis Discharge Diagnosis (1) Bipolar disorder with severe esdras: Status: Resolved DS: Medications Discharge Medications Home Medications: Home Medications Medication Instructions Recorded Confirmed aripiprazole 5 mg tablet 5 mg PO DAILY 12/14/23 12/22/23 atorvastatin 20 mg tablet 20 mg PO BEDTIME 12/14/23 12/22/23 benztropine 0.5 mg tablet 0.5 mg PO DAILY 12/14/23 12/22/23 duloxetine 60 mg capsule,delayed 60 mg PO DAILY 12/14/23 12/22/23 release fluphenazine decanoate 25 mg/mL 25 mg IM QMONTH 12/14/23 12/22/23 injection solution metoprolol tartrate 25 mg tablet 50 mg PO BID 12/14/23 12/22/23 multivitamin 1 tab PO DAILY 12/14/23 12/22/23 sennosides 8.6 mg tablet (senna) 17.2 mg PO BEDTIME PRN Constipation 12/14/23 12/22/23 trazodone 50 mg tablet 50 mg PO BEDTIME PRN Insomnia 12/14/23 12/22/23 vitamin E 268 mg (400 unit) capsule 268 mg PO DAILY 12/14/23 12/22/23 Previous Rx's Medication Instructions Recorded amlodipine 10 mg tablet 10 mg PO DAILY #30 tabs 12/22/23 divalproex 500 mg tablet,delayed 750 mg (1.5 x 500 mg) PO BID #60 12/22/23 release (Depakote) tabs Mental Status Exam Mental Status Exam Narrative: Appearance: wearing hospital gown, fair hygiene, in NAD Behavior: somewhat guarded Speech: more clear, regular rate, regular tone, spontaneous TP: more coherent and logical Mood: good Affect:congruent, bright, non labile AH/VH: none Delusions: no overt Insight/judgment: improving x 2 Memory/cog: alert, oriented x 3. Data Data Completed and Pending Completed studies during hospitalization [Text1]: 12/30/23 01/01/24 08:41 07:32 Valproic Acid 69.7 74.0 DS: Summary Hospital Course Hospital Course: Mrs. Bob is a 83 year-old woman with hx of Bipolar Disorder who initially was brought to [facility] on 12/01/23 due to presenting with paranoia ideas, not talking, refusing medications. She was then sent to [place] for inpatient psychiatric treatment. This conventional mortgage underwriter spoke with SW from [facility] who reports pt had been refusing medication and team had filed for involuntary commitment. She was transported on 12/15/23 for suspicion of tonic-clonic seizure. Additional collateral information gathered from his son- Devonte who reports pt has hx of Bipolar for more than 20 years. She has been receiving outpatient psychiatric services at [facility][Note 3] for about 20 years. Son reports she has had about 4 inpt psych admission with similar presentation including mutism, laughing for unclear reasons, paranoia thinking meds are poisoned and she is being watched, declining to take medications, more disorganized behaviors. He reports when she is doing well she functions without an issue. In terms of medication regimen--> she has been on NOLEN fluphenazine 25mg IM monthly, last dose was 11/25/2023 which was given at [facility]. She has NOT missed a dose of fluphenazine. She is also on aripiprazole 5mg po BID. Apparently, carbamazepine was discontinued by provider (pending collateral information by outpatient provider Misha Coles) back in 06/2023. While Mrs. Bob was on the medical floor, she was started on depakote 500mg IV BID. She received fluphenazine 25mg IM. She initially was not talking much. She later was talking more. She presented with flirtatious behaviors towards male staff. Some irritability but slowly had agreed to resume oral medications for both psychiatric and medical conditions. She denied SI/HI. On the unit, pt reports she upset about being on a psychiatric unit, that she feels more comfortable on the medical floor. She states I'm not crazy. Past Psychiatric History: Inpt: 4 in the past unclear when last admission was and where OP: [facility][Note 3] Past med trials: fluphenazine, abilify, carbamazepine, cymbalta Medical Evaluation Reviewed: Yes HOSPITAL COURSE On the unit, Mrs. Bob was admitted on a CV and placed on 15 minutes checks for safety. She presented with expansive mood, some disinhibition around males, which required redirection. She initially on the medical floor had presented with some catatonic symptoms, including mutism, negativism, no waxy flexibility, which did resolve with benzodiazepine. She was continued on fluphenazine 25mg IM [id number]--> she received last dose on 12/21/2023, next dose is due 01/19/2024. She was started on depakote for mood/and questions of seizure activity. EEG completed during medical admission was inconclusive in part due to pt moving during exam. aripiprazole was discontinued as limited therapeutic benefit at this point given that she is on fluphenazine. Cymbalta was decreased to 60mg po daily to decrease risk of exacerbating symptoms of esdras. Her affect gradually presented as much less labile, less expansive. She was more open to take medications consistently. She denied SI/HI. No overt delusional content noted or reported. No aggression towards self or others. Pt used wheelchair while on the unit. She was assessed by PT who did not recommend intensive rahab as pt able to demonstrate adequate strength and balance to ambulate with walker. However, during the time that pt was on the unit, she declined to use walker. Recommendation is to continue home PT. She did have bilateral LE edema- she was started on compression stocking. Recommend to follow up with PCP- as they may want to consider changing amlodipine to hydrochlorothiazide. She had mild rash on top of right foot, which she reported was itching, she was given benadryl cream with good effect. Status at Discharge Cognitive/behavioral status at discharge: Pt with bright, non labile affect. No SI/HI. No overt delusions or psychosis. Her thoughts process is organized and linear. No aggression towards self or others. Functional status at discharge: uses cane/walker Time Spent with Patient Time attestation: Total time managing care of this patient today ____ minutes. Discharge Plan Discharge Anticipated Discharge Date/Time: 01/04/24 08:44 Patient Disposition: Home, Self-Care Discharge Diagnosis: Bipolar Disorder type 1 Referrals: Therapist Request @ [facility][Note 3] [Other] - 1 Week (Please call to scheduled a convenient time for therapy session. ) Susana Simmons MD [Physician] - 01/08/24 10:00 am (PCP ) Misha Coles APRN [Advanced Practice Nurse] - 01/12/24 10:30 am (Prescriber - Telehealth. ) Discharge Medications: New atorvastatin 20 mg Tablet 20 mg PO BEDTIME Qty: 30 0RF trazodone 50 mg Tablet 50 mg PO BEDTIME PRN (Reason: Insomnia) Qty: 30 0RF amlodipine 10 mg Tablet 10 mg PO DAILY Qty: 30 0RF Protocol: Hold for SBP< HOLD for SBP < : 90 metoprolol tartrate 50 mg Tablet 50 mg PO BID Qty: 60 0RF Protocol: Hold for SBP/HR < HOLD for SBP < : 90 HOLD for HR < : 60 duloxetine 60 mg Capsule,Delayed Release(Dr/Ec) 60 mg PO DAILY Qty: 30 0RF multivitamin [Daily-Chuckie] Tablet 1 tab PO DAILY Qty: 30 0RF diphenhydramine-zinc acetate 1-0.1 % cream 1 appl topical BID PRN (Reason: itching) Qty: 28.3 0RF Continued divalproex 250 mg tablet,delayed release (DR/EC) 750 mg PO BID Qty: 180 0RF sennosides [senna] 8.6 mg Tablet 17.2 mg PO BEDTIME PRN (Reason: Constipation) fluphenazine decanoate 25 mg/mL Solution 25 mg IM QMONTH vitamin E 268 mg (400 unit) Capsule 268 mg PO DAILY Discontinued multivitamin Tablet 1 tab PO DAILY atorvastatin 20 mg Tablet 20 mg PO BEDTIME benztropine 0.5 mg tablet 0.5 mg PO DAILY trazodone 50 mg Tablet 50 mg PO BEDTIME PRN (Reason: Insomnia) aripiprazole 5 mg Tablet 5 mg PO DAILY metoprolol tartrate 25 mg Tablet 50 mg PO BID duloxetine 60 mg Capsule,Delayed Release(Dr/Ec) 60 mg PO DAILY amlodipine 10 mg Tablet 10 mg PO DAILY Qty: 30 0RF Protocol: Hold for SBP< HOLD for SBP < : 90 Discharge Orders: Discharge Order (Routine); Ordered 01/04/24 Ordered By: Radha Walsh Diet: Low salt diet Activity on Discharge: Use cane or walker Stand Alone Forms: Patient Portal Discharge page Care Plan Goals: 1. Maintain mood 2. No SI/HI 3. No psychosis or delusions 4. No aggression towards self or others Health Concerns: Bilateral LE edema- follow up with PCP for routine care. Plan of Treatment: 1. Take medications as prescribed. 2. Go to nearest ED or call 911 in event of emergency Assessment: Pt with brighter, non labile mood. No overt delusions or hallucinations. Pt future oriented. No SI/HI. Pt sleeping through the night. No behavioral concerns. Encourage to ambulate with walker and continue home PT. No signs of aggression towards self or others.
[2024-01-04] MEDS: diphenhydrAMINE HCl 2 % Cream 28 GM TUBE 1 APPL TOPICAL (09:59)
--- NOTE | 2024-01-04 12:04 | PC.NURSE ---
Patient reported readiness for discharge. D/C instructions, instructions on medications, services, f/u appointments given to the patient and her son Devonte Bob. Pt left the unit with her belongings accompanied by her son. Left the [facility] at 11:32.
== END 2024-01-04 11:32 | disposition home or self-care (01) | DRG 885 ==
PROVIDERS: Social Worker; Admitting Provider Psychiatry & Neurology Psychiatry; Visit Provider Psychiatry & Neurology Psychiatry
DX: F31.13 Bipolar disorder, current episode manic without psychotic features, severe (principal); E78.5 Hyperlipidemia, unspecified; I10 Essential (primary) hypertension; Z91.148 Patient's other noncompliance with medication regimen for other reason; Z79.899 Other long term (current) drug therapy
CPT/HCPCS: 36415; 80164; 82565; 97162

== ENCOUNTER → 2023-12-22 14:28 | Outpatient (BNV) | payer MEDICARE, MEDICAID, SELFPAY | PROVIDERS: Admitting Provider Psychiatry & Neurology Psychiatry; Visit Provider Social Worker | DX: F31.13 Bipolar disorder, current episode manic without psychotic features, severe (principal) | CPT/HCPCS: 90792; 99231; 99232; 99238 ==